=== PATIENT | male | born 1975 | race Caucasian/White ===

== ENCOUNTER 2021-04-26 05:18 | Inpatient (IN) | payer OTHER, SELFPAY ==
[2021-04-26] VITALS (16 sets, daily range): BP systolic 94–155; BP diastolic 47–83; PULSE 77–97; RESP 16–20; TEMP 36.4–37.9; O2SAT 95–97; BMI 27.7
--- NOTE | ~2021-04-26 | CT_ITS ---
EXAMINATION: CT ABDOMEN AND PELVIS WITH CONTRAST CLINICAL INFORMATION: Right lower quadrant pain COMPARISON: CT abdomen pelvis 03/27/2019 and thoracic lumbar spine films 11/25/2019 TECHNIQUE: Multidetector volumetric images were obtained from the superior aspect of the liver through the pubic symphysis following administration 85 mL of Omnipaque 350 intravenous contrast. Sagittal and coronal reformatted images were obtained on the technologist's workstation. Oral contrast: No This CT examination was performed using dose optimization techniques as appropriate, variously including the following: *Automated exposure control *Adjustment of mA and/or kV according to patient size (this includes techniques or standardized protocols for targeted exams where dose is matched to indication/reason for exam; i.e. extremities or head) *Use of iterative reconstruction technique DLP: 678 mGy-cm FINDINGS: LUNG BASES: The visualized lung bases are unremarkable. LIVER, GALLBLADDER, AND BILIARY TREE: The liver is normal in size, shape, and attenuation. A tiny punctate 2 mm-sized hypodensity seen in the right lower liver just below the dome of the hemidiaphragm, most likely a cyst. No worrisome focal hepatic lesion or biliary ductal dilatation is present. The gallbladder is unremarkable with no evidence of radiopaque gallstones, gallbladder wall thickening, or obvious pericholecystic inflammatory changes. PANCREAS: Unremarkable. SPLEEN: Unremarkable. ADRENAL GLANDS: Unremarkable. KIDNEYS AND URETERS: The kidneys are normal in size, shape, and attenuation. No hydronephrosis, hydroureter, or calculi seen. No perinephric stranding. BLADDER: Unremarkable. GASTROINTESTINAL TRACT: The small and large bowel are unremarkable. The appendix is abnormal demonstrating changes of extremely early acute appendicitis. There is an appendicolith in the appendix which is mildly dilated at 1.2 cm. The appendicolith is new since 09/23/2018 study. In addition, some mild inflammatory changes are present around the appendix with some thickening of the lateral conal fascia. Although there is a tiny bubble of air in the distal appendix, indicating that it is not completely obstructed, I suspect that this represents very early appendicitis.. ABDOMINAL WALL: No significant hernia is appreciated. LYMPH NODES: No retroperitoneal lymphadenopathy. VASCULAR: Unremarkable. PELVIC VISCERA: Prostate and seminal vesicles are unremarkable. OSSEOUS STRUCTURES: Degenerative changes present at L3-L4 with marked disc space narrowing and large Schmorl's nodes involving the superior endplate of L4 and the inferior endplate of L3. The rapidity of appearance suggests the possibility of discitis, however no fluid or inflammatory changes present around this. MRI would be useful if there is clinical concern. There is a compression fracture of the superior endplate of T11, stable since the prior study. CT/CT abdomen pelvis w con IMPRESSION: 1. Abnormal appendix with new appendicolith since 2019 and associated mild dilatation of the inflammatory changes. Findings are consistent with very early acute appendicitis. 2. Marked new, since 2020, degenerative changes at L3-L4 as described above with stable compression fracture of T11. With the changes at L3-L4, discitis cannot be excluded although no surrounding fluid is seen. An MRI would be useful if this is clinically suspected. This critical result was discussed with Dr. Mcgill at 8:55 AM on the day of the exam and it was ascertained that the content and urgency of the report was understood at the time of direct communication.
[2021-04-26 07:01] LABS: MANUAL DIFF FLAG NO
[2021-04-26 07:19] LABS: Basophils Percent Auto 0.2 % (0-2); Eosinophils Percent Auto 0.1 % (0-4); Hematocrit 40.9 % (42-52); Imm Gran Abs Auto 0.08 X10*3/uL (0.00-0.03); Imm Gran Pct Auto 0.6 % (0.0-0.4); Lymphocytes Absolute Auto 1.4 X10*3/uL (1.2-4.9); Lymphocytes Percent Auto 9.6 % (20-40); Mean Corpuscular HGB Conc 31.8 g/dl (31.0-36.0); Mean Corpuscular Hemoglobin 26.6 pg (27.0-33.0); Mean Corpuscular Volume 83.8 fL (80-98); Mean Platelet Volume 11.5 fL (9.4-12.4); Monocytes Absolute Auto 0.9 X10*3/uL (0.1-1.2); Monocytes Percent Auto 6.4 % (2-11); Neutrophils Absolute Auto 11.8 X10*3/uL (2.0-8.3); Neutrophils Percent Auto 83.1 % (45-73); Platelet Count 162 X10*3/uL (160-400); Red Blood Count 4.88 X10*6/uL (4.60-5.80); Red Cell Distribution Width 14.9 % (11.0-16.0); White Blood Count 14.2 X10*3/uL (4.8-10.8)
[2021-04-26 07:25] LABS: Potassium 3.9 mmol/L (3.3-5.1); Sodium 140 mmol/L (135-145)
[2021-04-26 07:26] LABS: Alanine Aminotransferase 32 U/L (0-40); Albumin Level 4.5 g/dL (3.5-5.0); Alkaline Phosphatase 82 U/L (39-117); Anion Gap 16 (12-20); Aspartate Amino Transferase 18 U/L (5-37); Bilirubin Direct 0.3 mg/dL (0.0-0.5); Bilirubin Total 0.8 mg/dL (0.0-1.0); Carbon Dioxide 23 mmol/L (22-29); Chloride 105 mmol/L (96-108); Lipase 7 U/L (8-78); Total Protein 7.5 g/dL (6.5-8.0)
[2021-04-26 07:56] LABS: Blood Urea Nitrogen 19 mg/dL (9-16); Estimated Glomerular Filt Rate 58
[2021-04-26] MEDS: iohexoL 350 MG/ML 100 ML INFUS..BTL 85 ML IV (08:17)
[2021-04-26 09:35] LABS: COVID-19 Test Negative (Negative); IDNOW Serial# 9DD0AD1C
--- NOTE | 2021-04-26 10:01 | PC.NURSE ---
unable to find paper chart bp 132/80
--- NOTE | 2021-04-26 10:26 | PM.HPGS ---
History of Present Illness History of Present Illness Date of Service: 04/26/21 <Susanne Benitez MD - Last Filed: 04/26/21 14:00> 04/26/21 <Angely Cantu MD - Last Filed: 04/26/21 11:39> Chief complaint: Acute appendicitis <Susanne Benitez MD - Last Filed: 04/26/21 14:00> Narrative: Ethan Fontneot is a 46 year old male who presented to the emergency department with complaints of acute onset of stabbing, severe right lower quadrant abdominal pain. When I saw him in the emergency department, he was sleeping, but when roused, began retching and screaming in pain. He gives no history of a similar pain in the past and does not report fever or chills. He has been vomiting, but reports that this is related to receiving medication in the emergency room. CT scan of the abdomen and pelvis was done and revealed appendicoliths and evidence of a mildly inflamed appendix consistent with early acute appendicitis. On interview in the emergency department, he reported no history of narcotic or IV drug use. Review of records from the [facility] emergency department indicates that he does have a history of IV drug/opioid use. He does report use of cocaine in the past and says that he has not used in a long period of time. He has been on Eliquis recently. He says that he discontinued it a couple of weeks ago. He does not have a primary care physician and is not able to provide information on who was prescribing the Eliquis or assisting with management. He reports that he had a loss of consciousness and that he awoke with severe swelling. He says that this led to a diagnosis of blood clots and prescription of the Eliquis, but he is not able to provide any information on when this event occurred. <Susanne Benitez MD - Last Filed: 04/26/21 14:00> Review of Systems Review of Systems: He has no complaints other than those documented in the history, but system review is considered unreliable as he is does not appear to be able to provide reliable information at this time <Susanne Benitez MD - Last Filed: 04/26/21 14:00> Yes all other systems are reviewed and are negative <Susanne Benitez MD - Last Filed: 04/26/21 14:00> PMFSH Past Medical History Medical History: Medical History Clavicle fracture DVT (deep venous thrombosis) Forearm fracture Polysubstance abuse <Susanne Benitez MD - Last Filed: 04/26/21 14:00> Social History Social History: Social History Patient Tobacco Use Status: Current everyday Tobacco user Use of substances other than those prescribed or required for medical reasons: Yes Substance Use Frequency: Occasionally Other Past Substance Use Problem:: History of polysubstance use, details unavailable Are you DNR?: No Advance Directives: No Advance Directives Information Provided: No <Susanne Benitez MD - Last Filed: 04/26/21 14:00> Meds Allergies/Adverse reactions: Allergies Allergy/AdvReac Type Severity Reaction Status Date / Time No Known Allergies Allergy Unverified 04/20/20 16:48 [No Known Allergies*] <Susanne Benitez MD - Last Filed: 04/26/21 14:00> Physical Exam Const: Other: Appears to be in pain, unable to fully cooperate with exam <Susanne Benitez MD - Last Filed: 04/26/21 14:00> HENMT: Head: Yes normocephalic and Yes atraumatic <Susanne Benitez MD - Last Filed: 04/26/21 14:00> Neck: Neck: Yes trachea midline and Yes supple <Susanne Benitez MD - Last Filed: 04/26/21 14:00> Chest: Other: Scar over left clavicle, well-healed <Susanne Benitez MD - Last Filed: 04/26/21 14:00> Resp: Effort & Inspection: normal respiratory effort <Susanne Benitez MD - Last Filed: 04/26/21 14:00> Auscultation: clear to auscultation bilaterally <Susanne Benitez MD - Last Filed: 04/26/21 14:00> Cardio: Rate: regular rate <Susanne Benitez MD - Last Filed: 04/26/21 14:00> Rhythm: regular rhythm <Susanne Benitez MD - Last Filed: 04/26/21 14:00> GI: Other: Nondistended, occasional bowel sounds, diffuse involuntary guarding, markedly tender right lower quadrant <Susanne Benitez MD - Last Filed: 04/26/21 14:00> Skin: Other: Normal color, warm and dry <Susanne Benitez MD - Last Filed: 04/26/21 14:00> Extrem: Other: To well-healed incisions left forearm <Susanne Benitez MD - Last Filed: 04/26/21 14:00> Results Results Labs: Short CBC 04/26/21 Range/Units 06:05 WBC 14.2 H (4.8-10.8) X10*3/uL Hgb 13.0 L (14.0-18.0) g/dl Hct 40.9 L (42-52) % Plt Count 162 (160-400) X10*3/uL BMP 04/26/21 06:05 Sodium 140 Potassium 3.9 Chloride 105 Carbon Dioxide 23 BUN 19 H Creatinine 1.33 Liver Function 04/26/21 Range/Units 06:05 Total Bilirubin 0.8 (0.0-1.0) mg/dL Direct Bilirubin 0.3 (0.0-0.5) mg/dL AST 18 (5-37) U/L ALT 32 (0-40) U/L Alkaline Phosphatase 82 (39-117) U/L Albumin 4.5 (3.5-5.0) g/dL <Susanne Benitez MD - Last Filed: 04/26/21 14:00> Abdomen CT scan report/results: report reviewed and image reviewed <Susanne Benitez MD - Last Filed: 04/26/21 14:00> CT scan - pelvis: report reviewed, image reviewed and other (IMPRESSION: 1. Abnormal appendix with new appendicolith since 2019 and associated mild dilatation of the inflammatory changes. Findings are consistent with very early acute appendicitis. 2. Marked new, since 2020, degenerative changes at L3-L4 as described above with stable compression fracture o) <Susanne Benitez MD - Last Filed: 04/26/21 14:00> Assessment and Plan (1) Acute appendicitis: Status: Acute <Susanne Benitez MD - Last Filed: 04/26/21 14:00> 46-year-old male with history, CT findings and exam consistent with acute appendicitis. He has a history of polysubstance abuse according to old record, though he does not give a clear history of this. He does report a recent history of anticoagulation on Eliquis and says that he discontinued this 2 weeks ago. Again, details are unclear. I reviewed the findings with him. Because of the presence of appendicoliths on CT, antibiotic therapy is not recommended because of a higher likelihood of treatment failure. We discussed proceeding with appendectomy, laparoscopic appendectomy with conversion to open if needed. We reviewed the technique of surgery, the likely postoperative course, and risks including but not limited to infection, bleeding, DVT and PE, error in diagnosis and appendiceal stump leak. He wishes to proceed with surgery. This will be performed later today. He is at elevated risk for DVT, but because his recent history of Eliquis use is not clear, will hold on heparin therapy and begin postoperatively. Review of [facility] record indicates a history of right popliteal DVT in February,, noted to have resolved on ultrasound at [facility] dated 06/09/2020. Will use compression boots. <Susanne Benitez MD - Last Filed: 04/26/21 14:00> Quality Stroke Does the patient have a stroke diagnosis?: No <Susanne Benitez MD - Last Filed: 04/26/21 14:00> VTE Prior VTE?: Yes <Susanne Benitez MD - Last Filed: 04/26/21 14:00> VTE Risk Level:: Surgical - moderate <Susanne Benitez MD - Last Filed: 04/26/21 14:00> VTE Device Contraindication: N/A - Device Ordered <Susanne Benitez MD - Last Filed: 04/26/21 14:00> VTE Drug Contraindication: Treatment Not Indicated (has been on eliquis, us shows resolution of DVT) <Susanne Benitez MD - Last Filed: 04/26/21 14:00> Procedures Date of Service Date of Service: 04/26/21 <Susanne Benitez MD - Last Filed: 04/26/21 14:00>
--- NOTE | 2021-04-26 10:28 | PC.NURSE ---
report given to renae at sss
--- NOTE | 2021-04-26 11:06 | PC.NURSE ---
pt left for sss at this time. report given earlier to renae rajan. no med surg assignment at this time. will place pt in dc bed.
--- NOTE | 2021-04-26 11:39 | HO.ANESPROP2 ---
[facility] Active Problems Active Problems: All Active Problems (Updated 04/26/21 @ 11:07 by Treasure Bond) Appendicitis (Acute) Acute appendicitis (Acute) Past Medical History Medical History Clavicle fracture DVT (deep venous thrombosis) Forearm fracture Polysubstance abuse Surgical History History of Problems with Anesthesia: No Social History Social History Patient Tobacco Use Status: Current everyday Tobacco user Use of substances other than those prescribed or required for medical reasons: Yes Substance Use Frequency: Occasionally Other Past Substance Use Problem:: History of polysubstance use, details unavailable Are you DNR?: No Advance Directives: No Advance Directives Information Provided: No Meds Allergies Allergy/AdvReac Type Severity Reaction Status Date / Time No Known Allergies Allergy Unverified 04/20/20 16:48 [No Known Allergies*] Active Medications: Current Medications Hydromorphone HCl (Hydromorphone Hcl 0.5 Mg/0.5 Ml Syringe) 0.5 mg IV Q3H PRN; Protocol PRN Reason: Pain, Severe (Pain Scale 7-10) Cefotetan Disodium 2 gm/ (Sodium Chloride) 50 mls @ 100 mls/hr IV PREOP ONE Stop: 04/26/21 11:42 Lactated Ringer's (Lr) 1,000 mls @ 80 mls/hr IVCONT .[id number] SUZIE Ondansetron HCl (Ondansetron Hcl 4 Mg/2 Ml Vial) 4 mg IVPUSH Q8H PRN PRN Reason: Nausea Exam Exam Date and Time: April 26, 2021 1139 Height,Weight and Vital Signs: Height 6 ft 1 in Weight 95.254 kg Last Vital Signs Temp 100.3 F 04/26/21 11:15 Pulse 77 04/26/21 11:15 Resp 20 04/26/21 11:15 BP 150/83 H 04/26/21 11:15 Pulse Ox 97 04/26/21 11:15 Pertinent Lab Results Pertinent Lab Results: Laboratory Tests 04/26/21 04/26/21 04/26/21 06:05 06:05 09:09 WBC 14.2 H RBC 4.88 Hgb 13.0 L Hct 40.9 L MCV 83.8 MCH 26.6 L MCHC 31.8 RDW 14.9 Plt Count 162 MPV 11.5 Immature Gran % (Auto) 0.6 H Neut % (Auto) 83.1 H Lymph % (Auto) 9.6 L [place] % (Auto) 6.4 Eos % (Auto) 0.1 Baso % (Auto) 0.2 Lymph # (Auto) 1.4 [place] # (Auto) 0.9 Eos # (Auto) 0.0 Baso # (Auto) 0.0 Abs Immat Gran (auto) 0.08 H Absolute Neuts (auto) 11.8 H Absolute Nucleated RBC 0.000 Nucleated RBC % (auto) 0.0 Sodium 140 Potassium 3.9 Chloride 105 Carbon Dioxide 23 Anion Gap 16 BUN 19 H Creatinine 1.33 Estim Creat Clear Calc TNP Estimated GFR 58 Total Bilirubin 0.8 Direct Bilirubin 0.3 AST 18 ALT 32 Alkaline Phosphatase 82 Total Protein 7.5 Albumin 4.5 Lipase 7 L COVID-19 (REINA) Negative COVID-19 Clin Com See Note Airway Mallampati Class: II TM Dist: >3cm Neck ROM: Full Loose/Missing/Broken Teeth: No Heart: RRR Lungs: CTA Assessment and Plan Assessment Anesthesia Assessment: Anesthesia Plan Discussed and Chart Reviewed Final Anesthetic Review History of Problems with Anesthesia: No NPO: Yes ASA Class: II Final Preanesthetic Review: Meds/Allgs Chart Reviewed, Consent Obtained/Reviewed and Anes Risks/Benef Reviewed Patient Risk: Low Procedure Risk: Low Anesthetic Plan Anesthetic Plan: GA Disposition: Standard PACU
--- NOTE | 2021-04-26 13:27 | PM.OP ---
Brief Operative Note Date of Service: 04/26/21 <Lola King PA-C - Last Filed: 04/26/21 13:28> Pre-op diagnosis: acute appendicitis <Lola King PA-C - Last Filed: 04/26/21 13:28> Post-op diagnosis: same <Lola King PA-C - Last Filed: 04/26/21 13:28> Procedure: laparoscopic appendectomy <Lola King PA-C - Last Filed: 04/26/21 13:28> Surgeon: SUSANNE MURPHY MD <Lola King PA-C - Last Filed: 04/26/21 13:28> Anesthesia: GETA <Lola King PA-C - Last Filed: 04/26/21 13:28> Was an Compressor Station Engineer Chief used for this Procedure?: Yes <Lola King PA-C - Last Filed: 04/26/21 13:28> No <Susanne Murphy MD - Last Filed: 04/26/21 14:10> Compressor Station Engineer Chief: Lola King <Lola King PA-C - Last Filed: 04/26/21 13:28> Estimated blood loss (mL): 5 <Lola King PA-C - Last Filed: 04/26/21 13:28> Urine output (mL): 300 <Lola King PA-C - Last Filed: 04/26/21 13:28> Pathology: other (APPENDIX) <KERRIE Colon Last Filed: 04/26/21 13:28> Condition: stable <Lola King PA-C - Last Filed: 04/26/21 13:28> Disposition: PACU <KERRIE Colon Last Filed: 04/26/21 13:28>
--- NOTE | 2021-04-26 14:12 | W.PM.OPN ---
Operative Note Operative Note Date of Service: 04/26/21 Narrative: Preoperative diagnosis: Acute appendicitis Postoperative diagnosis: Same Procedure: Laparoscopic appendectomy Cobol Application Developer: Lola King PA-C Anesthesia: General endotracheal Specimen: Appendix Immediate complications: None Indications: This is a 46-year-old gentleman who presented to the emergency department with a several hour history of severe stabbing right lower quadrant abdominal pain. Examination revealed localized right lower quadrant tenderness and a CT scan of the abdomen and pelvis demonstrated appendicoliths and mild periappendiceal inflammation consistent with early acute appendicitis. Findings: There was a small amount of turbid fluid present in the right pericolic gutter. The appendix appeared mildly inflamed. There is no evidence of perforation or abscess. Procedure in detail: With the patient in the supine position following induction of adequate general anesthesia, the abdomen is prepped with ChloraPrep and was draped sterilely. A time-out procedure was performed. 2 g of cefotetan were infused for antibiotic prophylaxis. Each trocar site was infiltrated with local anesthetic prior to making incisions. An infraumbilical incision was made and was carried down to the level of the fascia. The fascia was elevated in the midline with a Dejuan clamp and holding sutures of 0 Polysorb were placed on either side. The Dejuan was released and the fascia was split in the midline. The peritoneum was elevated and incised. The Sheth trocar was inserted and stabilized with the fascial sutures. The abdomen was then insufflated with carbon dioxide to a pressure 15 mm of mercury. The 0 degree, 5 mm laparoscope was inserted and the peritoneal cavity was visualized. The distal appendix was visible in the right lower quadrant. It appeared mildly inflamed. There was a small amount of turbid fluid present in the right paracolic gutter. A 5 mm trocar was placed laterally in the superior aspect of the left lower quadrant and a 2nd 5 mm trocar was placed in the lower midline a few cm above the pubic bone. The patient was positioned slightly left side down and in Trendelenburg. A blunt grasper was inserted through the suprapubic port and the appendix was grasped and elevated. A 2nd blunt grasper was inserted through the left lower quadrant port and the appendix was gently manipulated. The mesoappendix was visualized. The left lower quadrant grasper was then removed and the 5 mm laparoscopic LigaSure was inserted. The mesoappendix was then divided using the LigaSure or and down to the base of the appendix. The appearance of the appendix was normal at the junction with cecum. The LigaSure was removed. The laparoscoped was removed and repositioned through the left lower quadrant trocar and the Endo MACK 30, purple cartridge, was employed. It was inserted through the Sheth trocar, angled, opened and placed across the base of the appendix at the junction with the cecum. The device was closed. The jaws were examined to ensure that no extraneous tissues were included. The device was then fired, opened and removed. The specimen pouch was inserted through the Varun trocar. The appendix was placed into the pouch. The pouch was then closed and withdrawn along with the Varun trocar. The Varun was then reinserted in the laparoscopic was placed back through it. The appendectomy site was inspected. Staple line was intact. There was no evidence of bleeding. The right lower quadrant was irrigated with saline solution. 5 mm trocars were then removed under direct vision. There is no evidence of bleeding. Insufflation was discontinued and gas was allowed to escape from the peritoneal cavity. The laparoscopic Sheth were removed. Fascia at the Varun site was closed with a [id number] suture of 0 Polysorb and the holding sutures were tied to 1 another. Skin incisions were closed with subcuticular sutures of 4-0 Polysorb. Steri-Strips and dry sterile dressings were applied. He tolerated the procedure well and was transported to the recovery room in stable condition. There were no immediate complications.
[2021-04-26] MEDS: HYDROmorphone HCl 0.5 MG/0.5 ML SYRINGE IV ×3 (18:17→23:26)
[2021-04-26] MEDS: Lactated Ringers 1,000 ML 80 ML IVCONT (18:17)
[2021-04-26] MEDS: oxyCODONE HCl Immed Release 5 MG TABLET 10 MG PO (19:26)
[2021-04-27] VITALS: BP 131/64; PULSE 83; RESP 17; TEMP 36.8; O2SAT 95
[2021-04-27] MEDS: HYDROmorphone HCl 0.5 MG/0.5 ML SYRINGE IV ×2 (02:21→05:16)
[2021-04-27 04:00] VITALS: BP 107/68; PULSE 74; RESP 17; TEMP 37.2; O2SAT 97
[2021-04-27] MEDS: Lactated Ringers 1,000 ML 80 ML IVCONT (05:11)
[2021-04-27 08:00] VITALS: BP 138/70; PULSE 81; RESP 20; TEMP 36.4; O2SAT 95
[2021-04-27] MEDS: oxyCODONE HCl Immed Release 5 MG TABLET 10 MG PO (08:00)
--- NOTE | 2021-04-27 09:21 | P.PNGS_ITS ---
Subjective Subjective Date of Service: 04/27/21 <Lola King PA-C - Last Filed: 04/27/21 09:25> 04/27/21 <Terrell Green MD - Last Filed: 04/27/21 11:09> Interval history: Feels much better but is sore at incision sites. Medication relieving pain but wears off quickly- has been receiving the IV analgesics. Tolerating solid diet, OOB without difficulty. <Lola King PA-C - Last Filed: 04/27/21 09:25> Physical Exam Vital Signs: Vital Signs: Last Vital Signs Temp 97.6 F 04/27/21 08:00 Pulse 81 04/27/21 08:00 Resp 20 04/27/21 08:00 BP 138/70 04/27/21 08:00 Pulse Ox 95 04/27/21 08:00 Body Mass Index 27.7 <Lola King PA-C - Last Filed: 04/27/21 09:25> Const: General: comfortable, no acute distress and alert <Lola King PA-C - Last Filed: 04/27/21 09:25> Orientation/consciousness: patient oriented x3 <KERRIE Colon Last Filed: 04/27/21 09:25> Resp: Effort & Inspection: normal respiratory effort <KERRIE Colon Last Filed: 04/27/21 09:25> GI: Inspection: No distended and Yes incision (dressings c/d/i) <Lola King PA-C - Last Filed: 04/27/21 09:25> Palpation (GI): Soft to palpation, Tenderness to palpation present (GI) (mild, incisional), no guarding and not rigid <KERRIE Colon Last Filed: 04/27/21 09:25> Percussion: Yes normal to percussion <KERRIE Colon Last Filed: 04/27/21 09:25> Skin: General skin exam: no rashes or lesions noted <KERRIE Colon Last Filed: 04/27/21 09:25> Neuro: General: patient oriented x3 <Lola King PA-C - Last Filed: 04/27/21 09:25> Extrem: General: Yes no clubbing, cyanosis or edema <Lola King PA-C - Last Filed: 04/27/21 09:25> Procedures Date of Service Date of Service: 04/27/21 <Lola King PA-C - Last Filed: 04/27/21 09:25> Progress Note: A&P Assessment and plan (1) Acute appendicitis: Status: Acute <Lola King PA-C - Last Filed: 04/27/21 09:25> (2) Status post laparoscopic appendectomy: Status: Acute <Lola King PA-C - Last Filed: 04/27/21 09:25> Assessment and Plan: Postop pain seems appropriate Looks well although anxious Abdomen soft Tolerating diet He says he wants to go home and is ready Okay to discharge home Given discharge instructions Follow-up in the office Seen and examined -agree with RAMYA King <Terrell Green MD - Last Filed: 04/27/21 11:09> Assessment and Plan: 46 year old male admitted with acute appendicitis now POD #1 s/p lap appy. He is doing well post op. He reports incisional pain but relieved by medication. VSS. Abd exam benign with appropriate post op tenderness, dressings c/d/i. Patient hesitant about discharge today due to pain. Educated patient that PO analgesics last longer and we will try these today in preparation. Will reassess later today for discharge to home. <Lola King PA-C - Last Filed: 04/05 11/22 09:25> Fall Risk Details Current Medications: Current Medications Hydromorphone HCl (Hydromorphone Hcl 0.5 Mg/0.5 Ml Syringe) 0.5 mg IV Q3H PRN; Protocol PRN Reason: Pain, Severe (Pain Scale 7-10) Last Admin: 04/27/21 05:16 Dose: 0.5 mg Documented by: Lactated Ringer's (Lr) 1,000 mls @ 80 mls/hr IVCONT .[id number] SUZIE Last Admin: 04/27/21 05:11 Dose: 80 mls/hr Documented by: Ondansetron HCl (Ondansetron Hcl 4 Mg/2 Ml Vial) 4 mg IVPUSH Q8H PRN PRN Reason: Nausea Oxycodone HCl (Oxycodone Hcl Immed Release 5 Mg Tablet) 5 mg PO Q4H PRN PRN Reason: Pain, Moderate (Pain Scale 4-6 Oxycodone HCl (Oxycodone Hcl Immed Release 5 Mg Tablet) 10 mg PO Q4H PRN PRN Reason: Pain, Severe (Pain Scale 7-10) Last Admin: 04/27/21 08:00 Dose: 10 mg Documented by: <Lola King PA-C - Last Filed: 04/27/21 09:25> Time Spent With Patient Time: Total time spent is greater than 50% in coordination of care (as documented) at patient's floor/unit and/or counseling patient: <Lola King PA-C - Last Filed: 04/27/21 09:25> Time with patient: 15 - 24 minutes <Lola King PA-C - Last Filed: 04/27/21 09:25> Quality Stroke Does the patient have a stroke diagnosis?: No <Lola King PA-C - Last Filed: 04/27/21 09:25> VTE Prior VTE?: Yes <Lola King PA-C - Last Filed: 04/27/21 09:25> VTE Risk Level:: Surgical - moderate <Lola King PA-C - Last Filed: 04/27/21 09:25> VTE Device Contraindication: N/A - Device Ordered <Lola King PA-C - Last Filed: 04/27/21 09:25> VTE Drug Contraindication: Treatment Not Indicated (has been on eliquis, us shows resolution of DVT) <Lola King PA-C - Last Filed: 04/27/21 09:25>
--- NOTE | 2021-04-27 10:47 | HO.POSTANES ---
Post Anesthesia Evaluation Post Anesthesia Evaluation Vital Signs: Vital Signs Temp Pulse Resp BP Pulse Ox 04/27/21 08:00 97.6 F 81 20 138/70 95 04/27/21 04:00 99 F 74 17 107/68 97 04/27/21 00:00 98.3 F 83 17 131/64 95 Anesthesia: General Endotracheal-GETA Mental Status: Awake Pain Control: Satisfactory Nausea/Vomiting: None Hydration: Adequate Anesthesia-Related Issues: No Anes. Related Issues
--- NOTE | 2021-04-27 10:52 | P.DS_ITS ---
DS: Providers Provider Date of Service: 04/27/21 Date of admission: 04/26/21 11:00 Primary care physician: Chanell Physician Attending physician on admission: Susanne Benitez Attending physician on discharge: Terrell Green DS: Diagnosis Discharge Diagnosis (1) Acute appendicitis: Status: Acute (2) Status post laparoscopic appendectomy: Status: Acute DS: Summary Hospital Course Hospital Course: BRIEF HPI: Ethan Fontenot is a 46 year old male who presented to the emergency department with complaints of acute onset of stabbing, severe right lower quadrant abdominal pain.? When I saw him in the emergency department, he was sleeping, but when roused, began retching and screaming in pain.? He gives no history of a similar pain in the past and does not report fever or chills.? He has been vomiting, but reports that this is related to receiving medication in the emergency room.? CT scan of the abdomen and pelvis was done and revealed appendicoliths and evidence of a mildly inflamed appendix consistent with early acute appendicitis. On interview in the emergency department, he reported no history of narcotic or IV drug use.? Review of records from the [facility] emergency department indicates that he does have a history of IV drug/opioid use.? He does report use of cocaine in the past and says that he has not used in a long period of time. He has been on Eliquis recently.? He says that he discontinued it a couple of weeks ago.? He does not have a primary care physician and is not able to provide information on who was prescribing the Eliquis or assisting with management.? He reports that he had a loss of consciousness and that he awoke with severe swelling.? He says that this led to a diagnosis of blood clots and prescription of the Eliquis, but he is not able to provide any information on when this event occurred. HOSPITAL COURSE: The patient was admitted to the surgical service for further treatment of the acute appendicitis. He was kept NPO, on IVF and on IV zosyn. Given the presence of the appendicolith, it was recommended to proceed with laparoscopic appendectomy, possible open. He agreed and he was added onto the OR schedule for that day. On 04/26/21, a laparoscopic appendectomy was performed by Dr. Benitez without complication. The patient tolerated the procedure well, completed routine recovery in PACU and was admitted to the medical/surgical floor for observation. He had an uncomplicated post operative course. He was tolerating a solid diet, his pain was controlled, he was OOB without difficulty. His abdomen remained benign with appropriate postop tenderness and dressings c/d/i. He moved his bowels. He felt ready for discharge. He was discharged to home on 04/27/21 in stable condition with 2 week follow up in office with Dr. Green who was covering. Status at Discharge Functional status at discharge: independent ambulation Overall status at discharge: patient is progressing back to baseline Time Spent with Patient Time attestation: Total time spent providing and/or coordinating discharge services: Discharge coordination time: Less than 30 minutes Quality: Stroke Does the patient have a stroke diagnosis?: No Physical Exam Vital Signs: Vital Signs: Last Vital Signs Temp 97.6 F 04/27/21 08:00 Pulse 81 04/27/21 08:00 Resp 20 04/27/21 08:00 BP 138/70 04/27/21 08:00 Pulse Ox 95 04/27/21 08:00 Body Mass Index 27.7 Const: General: comfortable, no acute distress and alert Orientation/consciousness: patient oriented x3 Resp: Effort & Inspection: normal respiratory effort GI: Inspection: No distended and Yes incision (dressings c/d/i) Palpation (GI): Soft to palpation, Tenderness to palpation present (GI) (mild, incisi onal), no guarding and not rigid Percussion: Yes normal to percussion Skin: General skin exam: no rashes or lesions noted Neuro: General: patient oriented x3 Extrem: General: Yes no clubbing, cyanosis or edema DS: Data Data Completed and Pending Pending studies at discharge: Pending at discharge 04/26/21 12:57 Surgical [PTH] Routine Discharge Plan Discharge Patient Disposition: Home, Self-Care Discharge Diagnosis: acute appendicitis Referrals: Terrell Green MD [Physician] - 2 Weeks Physician,None [Primary Care Provider] - 1 Week Discharge Medications: New oxycodone 5 mg tablet 5 mg PO Q4H PRN (Reason: pain (scale score 7-10)) Qty: 24 RF: 0 Discharge Orders: Discharge Order (Routine); Ordered 04/27/21 Ordered By: Lola King Diet: advance to usual diet Activity on Discharge: No heavy lifting Stand Alone Forms: Patient Portal Discharge page Activity Restrictions/Additional Instructions: If the incision area is tender, you may apply an ice pack for short intervals (No more than 20 minutes on, followed by at least 20 minutes off). Do not apply heat. Do not use creams, lotions, or topical antibiotics unless instructed to do so by your surgeon. These can cause infection or allergic reaction. Remove bandaids in 2 days. Ok to shower. You have steri strips (small white cloth strips) covering your incision- these will fall off ~1 week. Follow up in office with Dr. Green in 2 weeks. ([phone]) Call Your Doctor If: -Your temperature exceeds 101.5? F -You experience excessive pain or swelling -You have an unexpected reaction to medication -You have excessive bleeding -You experience continued vomiting/nausea -Your incision begins to separate -Your incision shows signs of infection such as increased redness, swelling, excessive pain, drainage (light blood or clear fluid is normal) or heat Care Plan Goals: Return to baseline health and gradual return to activity following recovery period. Health Concerns: acute appendicitis Plan of Treatment: Discharge to home, f/u in office in 2 weeks Assessment: Doing well post op
--- NOTE | 2021-04-27 12:35 | MHC.CM.PN ---
PT DISCHARGED PRIOR TO BEING SEEN BY CM. PER EMR, PT LIVES AT HOME WITH HIS S/O AND CHILDREN AND IS FULLY INDEPENDENT. NO HCP ON FILE PT ARRANGED HIS OWN TRANSPORT AND DC'D HOME WITH NO SERVICES
== END 2021-04-27 11:45 | disposition home or self-care (01) | DRG 234 ==
LOC: HO.ED 14:44 → HO.EDOVER 14:47 → HO.S3 15:58
PROVIDERS: Emergency Medicine; Admitting Provider Surgery; Emergency Provider Surgery; Visit Provider Surgery
PROC: 0DTJ4ZZ Resection of Appendix, Percutaneous Endoscopic Approach (ICD-10-PCS; CPT 44970; principal; 2021-04-26 12:00)
DX: K35.80 Unspecified acute appendicitis (principal); F17.210 Nicotine dependence, cigarettes, uncomplicated; Z71.6 Tobacco abuse counseling; Z20.822 Contact with and (suspected) exposure to COVID-19
CPT/HCPCS: 44970; 36415; 74177; 80051; 80076; 82565; 83690; 84520; 85025; 87635; 88304; J0131; J1100; J1170; J1885; J2250; J2405; J3010; Q9967

== ENCOUNTER → 2021-04-26 11:00 | Outpatient (BNV) | payer OTHER, SELFPAY | PROVIDERS: Admitting Provider Surgery; Emergency Provider Surgery; Visit Provider Surgery | DX: K35.80 Unspecified acute appendicitis (principal) ==

== ENCOUNTER 2021-10-16 14:27 | Inpatient (IN) | payer OTHER, SELFPAY ==
--- NOTE | ~2021-10-16 | FL_ITS ---
EXAMINATION: XR FL WITH IMAGES CLINICAL INFORMATION: ORIF left clavicle. COMPARISON: Clavicular films 10/16/2021. TECHNIQUE: Fluoroscopy Performed by Dr. Davon Lin. Fluoroscopy Time: 0.2 minutes. DAP: 0.0529 mGycm2. Images: 2. FINDINGS: A plate and screw device is seen overlying the fracture of the left clavicle. FL/FL guidance in OR IMPRESSION: Fluoroscopy and spot films provided to Dr. Davon Lin. Please see his operative note for full details.
--- NOTE | ~2021-10-16 | XR_ITS ---
EXAMINATION: XR CLAVICLE, LEFT CLINICAL INFORMATION: Fall COMPARISON: Previous x-ray March 2019 TECHNIQUE: 2 of the left clavicle. FINDINGS: There is an old mid clavicle fracture and orthopedic hardware with 2 plates and multiple screws. There is an acute displaced fracture of the distal clavicle, distal to the orthopedic hardware. This may involve the most distal/most lateral screw. There is superior displacement of the mid clavicle with respect to the distal clavicle by greater than the width of the clavicle. There are old left rib fractures. No other acute fracture is seen. Joint spaces are normal. There is soft tissue swelling adjacent to the fracture. XR/XR clavicle LT IMPRESSION: Displaced acute left distal clavicle fracture.
--- NOTE | 2021-10-16 16:00 | ED_ITS ---
HPI - General Adult General Chief complaint: Extremity Injury, Upper Stated complaint: popped shoulder Time Seen by Provider: 10/16/21 15:50 Source: patient Mode of arrival: ambulatory Limitations: no limitations History of Present Illness HPI narrative: Patient is a 46 year old male presenting to the emergency department today with left clavicle pain. Patient states that he had his left clavicle repaired 2 years ago at [facility] with hardware. Patient states that today, he was playing basketball with new shoes when his shoes got caught and he tumbled forward, rolling onto his left clavicle. Patient states that he did not hit his head and he did not experience any loss of consciousness with the incident. Patient describes the pain as 10/10 and non-radiating with a sharp nature. Patient denies any numbness, tingling, dizziness, lightheadedness, abdominal pain, nausea, vomiting, fever, chills, blurry vision, double vision, loss of vision, chest pain, difficulty breathing, shortness of breath, back pain, night sweats, pain with urination, increased urinary frequency, increased urinary urgency, blood in his urine or stool, syncope or a near syncopal episode, bowel incontinence, bladder incontinence, bowel retention, bladder retention, or any other complaints at this time. Patient states that he does not have any medical history and does not take any daily medications. MD complaint: left clavicle pain Onset (ago): minute(s) Location: upper extremity Radiation: non-radiation Severity: severe Severity scale (1-10): 10 Quality: sharp Pain Consistency: constant Relieving factors: none Exacerbating factors: movement Associated symptoms: denies other symptoms Treatments prior to arrival: none Related Data Home Medications Medication Instructions Recorded Confirmed clonidine HCl 0.1 mg tablet 1 tab PO BEDTIME 10/16/21 10/16/21 ibuprofen 400 mg tablet 1 tab PO TID PRN 10/16/21 10/16/21 sertraline 50 mg tablet 1 tab PO DAILY 10/16/21 10/16/21 trazodone 100 mg tablet 150 mg PO BEDTIME 10/16/21 10/16/21 Allergies Allergy/AdvReac Type Severity Reaction Status Date / Time No Known Allergies Allergy Unverified 04/20/20 16:48 [No Known Allergies*] Review of Systems Constitutional: Constitutional: Reports no additional constitutional complaints, Denies chills, Denies fever(s) and Denies night sweats Eyes: Eyes: Reports no additional eye complaints, Denies blurry vision, Denies change in vision, Denies diplopia, Denies eye discharge, Denies loss of vision and Denies eye pain ENT: Denies dizziness Cardiovascular: Cardiovascular: Reports no additional cardiovascular complaints, Denies chest pain, Denies lightheadedness, Denies Loss of Co nsciousness and Denies dyspnea Respiratory: Respiratory: Reports no additional respiratory complaints and Denies dyspnea Gastrointestinal: Gastrointestinal: Reports no additional gastrointestinal complaints, Denies abdominal pain, Denies melena, Denies hematochezia, Denies change in bowel habits and Denies change in stool character Genitourinary: Genitourinary: Reports no additional male genitourinary complaints, Denies hematuria, Denies oliguria, Denies difficulty urinating, Denies dysuria, Denies urinary frequency, Denies urinary hesitancy, Denies urinary incontinence and Denies urinary urgency Musculoskeletal: Musculoskeletal: Reports no additional musculoskeletal complaints, Denies numbness and Denies tingling Comments: left clavicle pain Neurologic: Denies dizziness, Denies loss of vision, Denies numbness and Denies tingling Psychiatric: Psychiatric: Reports no additional psychiatric complaints Endocrine: Endocrine: Reports no additional endocrine complaints Hematologic/Lymphatic: Hematologic/Lymphatic: Reports no additional hematologic/lymphatic complaints Allergic/Immunologic: Allergic/Immunologic: Reports no additional allergic/immunologic complaints [facility] Past Medical History Attestation statement: The following information was validated with the patient. Source: old records reviewed Medical History Clavicle fracture DVT (deep venous thrombosis) Forearm fracture Polysubstance abuse Social History Social History Household Members: Significant Other and Children Housing: Condominium Do you presently have visiting nurse or other home services: No Patient Tobacco Use Status: Current everyday Tobacco user Tobacco use type: Cigarette Second Hand Smoke Exposure: Yes Advance Directives: No Advance Directives Information Provided: No service: No Current occupational status: unemployed Physical Exam ED Vital Signs: Vital Signs - 24 hr 10/16/21 16:03 Temperature 97.7 F Pulse Rate 102 H Respiratory Rate 96 H Blood Pressure 122/89 BMI result Body Mass Index 29.5 Const General: cooperative, no acute distress, alert and awake Nutritional Appearance: well nourished Orientation/consciousness: patient oriented x3 Limitations: no limitations HENMT Head: Yes normal to inspection and Yes atraumatic Ears: hearing grossly normal bilaterally and external ears normal General nose exam: Normal external nose present, no nasal discharge noted and no epistaxis Face and sinus: Yes normal facial exam, No abrasion and No laceration Mouth: Normal oral and palatal mucosa present, no drooling and no muffled voice Eyes General: appearance normal, both eyes and all related structures Periorbital: periorbital findings normal Eyelids: Yes eyelids normal Conjunctivae: conjunctivae normal Pupils: Equal, round and reactive pupils present EOM: EOMs intact bilaterally Neck Neck: Yes normal visual inspection, Yes full ROM and Yes no lymphadenopathy Chest Chest palpation & inspection: normal inspection of the chest Resp Effort & Inspection: normal respiratory effort and able to speak in complete sentences Auscultation: clear to auscultation bilaterally Cardio Rate: regular rate Rhythm: regular rhythm GI Inspection: Yes normal to inspection Palpation (GI): Soft to palpation, not firm, nontender and no guarding Neuro General: patient oriented x3 and moves all extremities Cranial nerves: Yes Equal, round and reactive pupils present Cognition (Neuro): normal cognition Motor exam (neuro): 5/5 motor strength present throughout Sensory Exam: Normal double simultaneous stimulation for sensation Coordination: [id number] test normal Extrem General: Yes normal to inspection and Yes capillary refill normal Left upper extremity: normal capillary refill and shoulder/upper arm Details: tenderness Location: of the clavicle Laterality: medially, mid-shaft and laterally and abnormal ROM Details: pain with passive ROM Details: in ADduction, in ABduction, in extension, in flexion, in internal rotation and external rotation-; No no cyanosis and no edema Psych Appearance: grossly normal Mental Status: mental status grossly normal Affect: normal affect Attitude: cooperative Thought process: Normal thought process present Thought content: Normal thought content present Insight: Good insight present (Psych) Course Consultations Consultation #1: Spoke to the orthopedic PA Yuli Sung who stated that Dr. Lin agrees to admission and they will repair the patient's injury tomorrow. He is to remain NPO after midnight tonight. Time: 16:25 Medical Decision Making MDM Narrative Medical decision making narrative: Patient is a 46 year old male presenting to the emergency department today with left clavicle pain. Patient's physical exam showed significant tenderness to palpation of the entire left clavicle as well as pain with all aspects of ROM to the left shoulder. Patient's PMS was intact to the left upper extremity. Patient's blood work was unremarkable. Patient's left shoulder x-ray showed a displaced acute left distal clavicle fracture. I explained my physical exam findings as well as all test results to the patient. I answered all questions asked by the patient. Patient received IV Dilaudid which he stated helped his pain significantly. I spoke to Yuli Sung the orthopedic PA who informed me that Dr. Lin accepts this patient for admission with planned surgery tomorrow morning. States that the patient should be NPO after midnight. Patient verbalized agreement and understanding with this treatment plan and admission. Differential Diagnosis Differential Diagnosis: clavicle fracture, shoulder dislocation Medical Records Medical records reviewed: Yes I reviewed the patient's medical records. Lab Data Lab results reviewed: Yes I reviewed the patient's lab results. Result diagrams: 10/16/21 17:35 10/16/21 17:35 Imaging Data Left shoulder x-ray: Attestation: I personally reviewed and interpreted this imaging study as follows: My impression: Acute clavicle fracture. Radiologist's impression: EXAMINATION: XR CLAVICLE, LEFT CLINICAL INFORMATION: Fall? COMPARISON: Previous x-ray March 2019? TECHNIQUE: 2 of the left clavicle. FINDINGS: There is an old mid clavicle fracture and orthopedic hardware with 2 plates and multiple screws.? There is an acute displaced fracture of the distal clavicle, distal to the orthopedic hardware. This may involve the most distal/most lateral screw. There is superior displacement of the mid clavicle with respect to the distal clavicle by greater than the width of the clavicle. There are old left rib fractures. No other acute fracture is seen. Joint spaces are normal. There is soft tissue swelling adjacent to the fracture.? XR/XR clavicle LT IMPRESSION: Displaced acute left distal clavicle fracture. Dictated By: Angely Boston MD Signed By: Electronically signed by Angely Boston MD 10/16/21 1687 Discharge Plan Discharge Clinical Impression: Clavicle fracture, Orthopedic hardware present Patient Disposition: Admitted As Inpatient
[2021-10-16 16:03] VITALS: BP 122/89; PULSE 102; RESP 96; TEMP 36.5; BMI 29.5
--- NOTE | 2021-10-16 16:52 | PHA.MEDREC ---
Pharmacy Consult ? Medication Reconciliation Pharmacy has completed the medication reconciliation. Verified clonidine dose with pt, states that he takes 1 tab at bedtime not bid
[2021-10-16] MEDS: HYDROmorphone HCl 2 MG/ML VIAL IVPUSH (16:57)
[2021-10-16 17:27] VITALS: PULSE 95; O2SAT 93
[2021-10-16] MEDS: Dextrose 5 % and 0.45 % NaCl 1,000 ML 80 ML IVCONT (17:28)
--- NOTE | 2021-10-16 17:30 | PC.NURSE ---
sling placed for comfort to L arm. pt aware of plan to be admit to the hospital with plan of surgery for tomorrow.
[2021-10-16 17:41] LABS: MANUAL DIFF FLAG NO
[2021-10-16 17:48] LABS: Basophils Percent Auto 0.3 % (0-2); Eosinophils Absolute Auto 0.1 X10*3/uL (0.0-0.4); Eosinophils Percent Auto 0.5 % (0-4); Hematocrit 44.1 % (42.0-52.0); Hemoglobin 13.9 g/dl (14.0-18.0); Imm Gran Abs Auto 0.07 X10*3/uL (0.00-0.03); Imm Gran Pct Auto 0.5 % (0.0-0.4); Lymphocytes Absolute Auto 2.5 X10*3/uL (1.2-4.9); Lymphocytes Percent Auto 19.3 % (20-40); Mean Corpuscular HGB Conc 31.5 g/dl (31.0-36.0); Mean Corpuscular Hemoglobin 26.9 pg (27.0-33.0); Mean Corpuscular Volume 85.3 fL (80.0-98.0); Mean Platelet Volume 11.1 fL (9.4-12.4); Monocytes Absolute Auto 0.8 X10*3/uL (0.1-1.2); Monocytes Percent Auto 6.4 % (2-11); Neutrophils Absolute Auto 9.4 x10*3/uL (2.0-8.3); Platelet Count 197 X10*3/uL (160-400); Red Blood Count 5.17 X10*6/uL (4.60-5.80); Red Cell Distribution Width 15.8 % (11.0-16.0); White Blood Count 12.9 X10*3/uL (4.8-10.8)
[2021-10-16 17:50] LABS: Prothrombin Time 11.1 SEC (9.9-13.0)
[2021-10-16 17:52] LABS: Partial Thromboplastin Time 29.3 SEC (24.1-38.0)
[2021-10-16 17:58] LABS: Alanine Aminotransferase 54 U/L (0-40); Albumin Level 4.5 g/dL (3.5-5.0); Alkaline Phosphatase 80 U/L (39-117); Anion Gap 14 (12-20); Aspartate Amino Transferase 28 U/L (5-37); Bilirubin Total 0.3 mg/dL (0.0-1.0); Blood Urea Nitrogen 28 mg/dL (9-16); Calcium 9.5 mg/dL (8.4-10.2); Carbon Dioxide 22 mmol/L (22-29); Chloride 107 mmol/L (96-108); Creatinine Clr Calc Pharmacy 95.8; Estimated Glomerular Filt Rate > 60; Glucose Fasting 98 mg/dL (60-99); Potassium 4.4 mmol/L (3.3-5.1); Sodium 139 mmol/L (135-145); Total Protein 7.7 g/dL (6.5-8.0)
--- NOTE | 2021-10-16 18:00 | MHC.CM.PN ---
Addendum entered by Rebecca Wolfe 10/16/21 18:21: Pt did not receive any Covid 19 vaccines. Original Note: CM met with admitted patient with bed assignment pending. No IMM necessary. A&O x3. No HCP on file. HCP reviewed, completed and signed. Copies given and uploaded into [facility] iiko. HCP/mother Lucina Fontenot ([phone]). Has first visit with PCP on 10/22/2021 with [facility]. Pt does not remember provider name. Pt lives with mother, is unemployed, uses no DME or services. Pt has new PCP first appointment on 10/22/2021 with [facility], cannot remember the providers name. D/C plan is home without services. Pt may need post surgical OutPatient PT. Pt will arrange transportation home. CM to follow for D/C needs.
[2021-10-16 18:55] LABS: COVID-19 Test Negative (Negative)
[2021-10-16] MEDS: oxyCODONE HCl Immed Release 5 MG TABLET PO ×2 (19:08→20:05)
[2021-10-16 20:18] VITALS: BP 119/79; PULSE 100; RESP 16; TEMP 36.6; O2SAT 95
--- NOTE | 2021-10-16 20:31 | PC.NURSE ---
I assumed care of this pt at 1900. At that time he was given Oxycodone 5mg PO due to 10/10 L shoulder pain. At 1930 he was requesting additional pain medicines. I texted Pineda SY regarding this and she requested pt receive an additional 5mg PO Oxycodone (for a total of 10mg) and she changed the PRN Oxycodone to 10mg Q4hr. pt aware, additional Oxycodone 5mg PO given. Nursing report given to floor, pt en route to inpatient bed.
[2021-10-16 20:44] VITALS: BP 153/78; PULSE 93; RESP 18; TEMP 36.9; O2SAT 94
[2021-10-16 20:49] VITALS: BMI 33.5
[2021-10-16 23:15] VITALS: BP 138/81; PULSE 85; RESP 16; TEMP 36.8; O2SAT 94
[2021-10-17] VITALS (14 sets, daily range): BP systolic 105–151; BP diastolic 68–91; PULSE 76–102; RESP 10–20; TEMP 36.4–37; O2SAT 93–100
[2021-10-17] MEDS: oxyCODONE HCl Immed Release 5 MG TABLET 10 MG PO ×3 (01:01→23:24)
--- NOTE | 2021-10-17 05:09 | PC.NURSE ---
Around 0400 pt stated his throat was dry/sore because he couldn't drink anything and the air was dry. Patient requested a throat lozenger. Yuli BUI was notified and stated she could not order one that was not medicated. She declined giving patient a few ice chips and told me to keep him NPO for OR. Patient made aware and is resting with sling on. +CMS and +radial pulse.
[2021-10-17 06:03] LABS: MANUAL DIFF FLAG NO
[2021-10-17 06:06] LABS: Basophils Percent Auto 0.4 % (0-2); Eosinophils Absolute Auto 0.2 X10*3/uL (0.0-0.4); Eosinophils Percent Auto 1.9 % (0-4); Hemoglobin 12.9 g/dl (14.0-18.0); Imm Gran Abs Auto 0.04 X10*3/uL (0.00-0.03); Imm Gran Pct Auto 0.4 % (0.0-0.4); Lymphocytes Absolute Auto 3.8 X10*3/uL (1.2-4.9); Lymphocytes Percent Auto 42.1 % (20-40); Mean Corpuscular HGB Conc 31.5 g/dl (31.0-36.0); Mean Corpuscular Hemoglobin 26.8 pg (27.0-33.0); Mean Corpuscular Volume 85.1 fL (80.0-98.0); Mean Platelet Volume 10.7 fL (9.4-12.4); Monocytes Absolute Auto 0.8 X10*3/uL (0.1-1.2); Monocytes Percent Auto 9.3 % (2-11); Neutrophils Absolute Auto 4.2 x10*3/uL (2.0-8.3); Neutrophils Percent Auto 45.9 % (45-73); Platelet Count 174 X10*3/uL (160-400); Red Blood Count 4.82 X10*6/uL (4.60-5.80); Red Cell Distribution Width 15.8 % (11.0-16.0); White Blood Count 9.1 X10*3/uL (4.8-10.8)
[2021-10-17 06:36] LABS: Anion Gap 12 (12-20); Blood Urea Nitrogen 24 mg/dL (9-16); Calcium 8.9 mg/dL (8.4-10.2); Carbon Dioxide 23 mmol/L (22-29); Chloride 106 mmol/L (96-108); Creatinine Clr Calc Pharmacy 130.2; Estimated Glomerular Filt Rate > 60; Glucose Fasting 97 mg/dL (60-99); Potassium 4.1 mmol/L (3.3-5.1); Sodium 137 mmol/L (135-145)
--- NOTE | 2021-10-17 07:36 | PM.HPOR ---
History of Present Illness History of Present Illness Date of Service: 10/17/21 Chief complaint: Left Clavicle Fx Narrative: Ethan Fontenot is a 46 year old male who presented to the ER on 10-16-21 after sustaining a follow-up playing basketball. He states that he had prior clavicle ORIF 2 years ago at [facility] with hardware. He was last seen by [facility] in March where there was a mention of IVDA/opioid abuse history. Patient denies any current usage. He is a current 1/4 pack smoker per day. Review of Systems Review of Systems: Yes all other systems are reviewed and are negative PMFSH Past Medical History Medical History Clavicle fracture DVT (deep venous thrombosis) Forearm fracture Polysubstance abuse Social History Social History Household Members: Family Household Members Other:: [facility] [place] Housing: House Do you presently have visiting nurse or other home services: No Patient Tobacco Use Status: Current everyday Tobacco user Tobacco use type: Cigarette Cigarettes Per Day: 10 Years Smoked: 20 Smoked in Last 30 Days: Yes Patient Interested in Nicotine Replacement: Yes Patient Given Instructions on How to Stop Smoking: No Second Hand Smoke Exposure: Yes Use of substances other than those prescribed or required for medical reasons: No Currently Displaying Signs/Symptoms of Drug Intoxication Withdrawal: No Any prior treatment program specific to substance use: No Have you been hit, kicked, punched, or otherwise hurt by someone within the past year? If so, by whom?: No Do you feel safe in your current relationship?: Yes Is there a partner from a previous relationship who is making you feel unsafe now?: No Are you made to feel afraid or neglected: No Advance Directives: Yes Advance Directives Information Provided: No Advance Directives on File: Yes Advance Directives Date on File: 10/17/21 Do you have thoughts of harming others: None Do you have a plan to hurt others: No Plan Recently lost weight without trying: No How much weight loss: Not applicable Eating poorly because of decreased appetite: No Nutrition screen score: 0 Nutrition Risks: No Nutritional Risk Poor oral hygiene: No service: No Current occupational status: unemployed Meds Allergies Allergy/AdvReac Type Severity Reaction Status Date / Time No Known Allergies Allergy Unverified 04/20/20 16:48 [No Known Allergies*] Active Medications: Current Medications Acetaminophen (Acetaminophen 325 Mg Tablet) 650 mg PO Q6H PRN PRN Reason: Pain, Mild (Pain Scale 1-3) Dextrose/Sodium Chloride (D51/2ns) 1,000 mls @ 80 mls/hr IVCONT .[id number] [facility] Last Admin: 10/16/21 17:28 Dose: 80 mls/hr Documented by: Ondansetron HCl (Ondansetron Hcl 4 Mg/2 Ml Vial) 4 mg IVPUSH Q8H PRN PRN Reason: Nausea and Vomiting Oxycodone HCl (Oxycodone Hcl Immed Release 5 Mg Tablet) 10 mg PO Q4H PRN PRN Reason: Pain, Moderate (Pain Scale 4-6 Last Admin: 10/17/21 01:01 Dose: 10 mg Documented by: Pharmacy Consult (Consult Rx Perform Med Rec) 1 each MISCELLANE ONCE PRN PRN Reason: Consult order Sodium Chloride (0.9 % Sodium Chloride Flush 3 Ml Syringe) 3 ml IVFLUSH QSHIFT [facility] Last Admin: 10/17/21 00:33 Dose: Not Given Documented by: Home Medications Medication Instructions Recorded Confirmed Last Taken Type clonidine HCl 0.1 mg tablet 1 tab PO BEDTIME 10/16/21 10/16/21 10/15/21 History ibuprofen 400 mg tablet 1 tab PO TID PRN 10/16/21 10/16/21 10/15/21 History sertraline 50 mg tablet 1 tab PO DAILY 10/16/21 10/16/21 10/15/21 History trazodone 100 mg tablet 150 mg PO BEDTIME 10/16/21 10/16/21 10/15/21 History Physical Exam Vital Signs: Vital Signs: Last Vital Signs Temp 98.6 F 10/17/21 07:28 Pulse 90 10/17/21 07:28 Resp 17 10/17/21 07:28 BP 140/85 H 10/17/21 07:28 Pulse Ox 94 10/17/21 07:28 BMI result Body Mass Index 33.5 Const: General: cooperative, healthy appearing and no acute distress Resp: Effort & Inspection: normal respiratory effort and able to speak in complete sentences Cardio: Rate: regular rate Peripheral pulses: Peripheral pulses 2+ throughout GI: Palpation (GI): Soft to palpation Skin: Lesions: no lesions Rashes: no rashes Extrem: Other: Left clavicle skin intact. Pain with any motion of the shoulder. Patient has shoulder close to body guarding. NVI. Results Labs Result Diagrams: 10/17/21 05:40 10/17/21 05:40 Labs: Abnormal lab results 10/16/21 10/16/21 10/17/21 Range/Units 17:35 17:35 05:40 WBC 12.9 H (4.8-10.8) X10*3/uL Hgb 13.9 L 12.9 L (14.0-18.0) g/dl Hct 41.0 L (42.0-52.0) % MCH 26.9 L 26.8 L (27.0-33.0) pg Immature Gran % (Auto) 0.5 H (0.0-0.4) % Lymph % (Auto) 19.3 L 42.1 H (20-40) % Abs Immat Gran (auto) 0.07 H 0.04 H (0.00-0.03) X10*3/uL Absolute Neuts (auto) 9.4 H (2.0-8.3) x10*3/uL BUN 28 H (9-16) mg/dL ALT 54 H (0-40) U/L 10/17/21 Range/Units 05:40 WBC (4.8-10.8) X10*3/uL Hgb (14.0-18.0) g/dl Hct (42.0-52.0) % MCH (27.0-33.0) pg Immature Gran % (Auto) (0.0-0.4) % Lymph % (Auto) (20-40) % Abs Immat Gran (auto) (0.00-0.03) X10*3/uL Absolute Neuts (auto) (2.0-8.3) x10*3/uL BUN 24 H (9-16) mg/dL ALT (0-40) U/L H & H 10/16/21 10/17/21 Range/Units 17:35 05:40 Hgb 13.9 L 12.9 L (14.0-18.0) g/dl Hct 44.1 41.0 L (42.0-52.0) % Coagulation 10/16/21 Range/Units 17:35 INR 1.0 (0.9-1.1) All other labs normal. Assessment and Plan (1) Clavicle fracture: Status: Acute Plan I discussed the case with Dr. Lin and explained the extent of the injury to the patient and options available which include surgical intervention. I explained the procedure in detail along with the length of recovery and rehab course. I explained the risk, benefits and alternatives. Risk including, but not limited to infection, blood clots, bleeding, non union or malunion and nerve/tissue damage to surrounding areas. I answered all their questions and with their understanding they have consented to move forward with Operative Fixation of the left clavicle. The patient will be NPO after midnight. Educated the patient on importance of quitting smoking and smokings effects on the healing process. Patient understands. Quality Stroke Does the patient have a stroke diagnosis?: No VTE Prior VTE?: No VTE Risk Level:: Surgical - low VTE Device Contraindication: N/A - Device Ordered VTE Drug Contraindication: N/A - Med Ordered Procedures Date of Service Date of Service: 10/17/21
[2021-10-17] MEDS: Acetaminophen 325 MG TABLET 650 MG PO (08:04)
[2021-10-17] MEDS: Dextrose 5 % and 0.45 % NaCl 1,000 ML 80 ML IVCONT ×2 (08:05→23:26)
[2021-10-17] MEDS: HYDROmorphone HCl 0.5 MG/0.5 ML SYRINGE 0.25 MG IVPUSH ×3 (10:21→22:25)
--- NOTE | 2021-10-17 12:21 | MHC.SHP ---
Pre-Procedural Eval Section A Date of Service: 10/17/21 The patient is an INPATIENT: Yes Changes since office visit: Yes Patient answered all questions; No Cold of Flu in the past 2 weeks, No New Medical Problems and No Changes in Medication The History & Physical has been completed within 30 days and I have reviewed it.: Yes Section B Chief Complaint: Left Clavicle Fx Allergies: Allergies Allergy/AdvReac Type Severity Reaction Status Date / Time No Known Allergies Allergy Unverified 04/20/20 16:48 [No Known Allergies*] Plan I have reviewed the history and physical and performed a pertinent physical examination on my patient. No changes have occurred unless specified.
--- NOTE | 2021-10-17 14:49 | P.BOP_ITS ---
Brief Operative Note Date of Service: 10/17/21 Pre-op diagnosis: left clavicle fracture Post-op diagnosis: other (left clavicle non union) Procedure: ORIF clavicle non union Implants: [place] lateral locking plate 2.5 mg Brannon Moncada Surgeon: Davon Lin MD Anesthesia: GETA and local Was an Merchandise Supervisor used for this Procedure?: Yes Merchandise Supervisor: Yuli Sung Estimated blood loss (mL): 200 IV fluids (mL): 1,000 Pathology: none sent Condition: stable Disposition: PACU
[2021-10-17] MEDS: Haloperidol Lactate 5 MG/ML VIAL 1 MG IVPUSH (15:55)
[2021-10-17] MEDS: ceFAZolin Sodium/Dextrose,Iso 2 GM/50 ML PIGGYBACK IV (19:41)
[2021-10-17] MEDS: 0.9 % Sodium Chloride Flush 3 ML SYRINGE IVFLUSH (19:48)
[2021-10-18] MEDS: HYDROmorphone HCl 0.5 MG/0.5 ML SYRINGE 0.25 MG IVPUSH ×3 (01:17→10:20)
[2021-10-18] MEDS: HYDROmorphone HCl 0.5 MG/0.5 ML SYRINGE IVPUSH (03:46)
[2021-10-18 04:01] VITALS: BP 139/84; PULSE 99; RESP 16; TEMP 36.9; O2SAT 99
[2021-10-18 05:51] LABS: MANUAL DIFF FLAG NO
[2021-10-18 05:55] LABS: Basophils Percent Auto 0.2 % (0-2); Eosinophils Absolute Auto 0.2 X10*3/uL (0.0-0.4); Hematocrit 38.2 % (42.0-52.0); Imm Gran Abs Auto 0.02 X10*3/uL (0.00-0.03); Imm Gran Pct Auto 0.2 % (0.0-0.4); Lymphocytes Absolute Auto 2.6 X10*3/uL (1.2-4.9); Lymphocytes Percent Auto 32.8 % (20-40); Mean Corpuscular HGB Conc 31.4 g/dl (31.0-36.0); Mean Corpuscular Hemoglobin 26.7 pg (27.0-33.0); Mean Corpuscular Volume 84.9 fL (80.0-98.0); Mean Platelet Volume 10.6 fL (9.4-12.4); Monocytes Percent Auto 12.2 % (2-11); Neutrophils Absolute Auto 4.2 x10*3/uL (2.0-8.3); Neutrophils Percent Auto 52.6 % (45-73); Platelet Count 164 X10*3/uL (160-400); Red Cell Distribution Width 15.6 % (11.0-16.0)
--- NOTE | 2021-10-18 06:15 | PC.NURSE ---
Pt left shoulder dressing is CDI, pain controlled with prn and scheduled Dilaudid, able to ambulate to the BR voided and passed BM as pt claimed, had an incident of going outside to smoke 2x, pt was advised not to go outside while in the hospital as per policy, offered for nicotine patch and pt was agreeable, MD radiation oncology therapist was notified.
[2021-10-18 06:17] LABS: Anion Gap 10 (12-20); Blood Urea Nitrogen 17 mg/dL (9-16); Calcium 8.6 mg/dL (8.4-10.2); Carbon Dioxide 26 mmol/L (22-29); Chloride 106 mmol/L (96-108); Creatinine Clr Calc Pharmacy 134.3; Estimated Glomerular Filt Rate > 60; Glucose Fasting 112 mg/dL (60-99); Potassium 4.2 mmol/L (3.3-5.1); Sodium 138 mmol/L (135-145)
[2021-10-18] MEDS: Nicotine 21 MG PATCH.TD24 TRANSDERMA (07:27)
[2021-10-18 08:00] VITALS: BP 140/90; PULSE 79; RESP 18; TEMP 36.8; O2SAT 96
[2021-10-18] MEDS: oxyCODONE HCl Immed Release 5 MG TABLET 10 MG PO (08:46)
[2021-10-18] MEDS: Acetaminophen 325 MG TABLET 650 MG PO (08:46)
--- NOTE | 2021-10-18 08:52 | PM.DS ---
DS: Providers Provider Date of Service: 10/18/21 Date of admission: 10/16/21 16:55 Primary care physician: Unknown Physician DS: Diagnosis Discharge Diagnosis (1) Clavicle fracture: Status: Acute DS: Summary Hospital Course Hospital Course: The patient underwent a successful left clavicle ORIF they were transferred to PACU and then to the floor to recover. During their stay, their vitals were stable, afebrile at 98.5. Labs were unremarkable, H/H 12.0/38.2. Prior to discharge, their dressing was changed, incision clean dry and intact, and the plan was to be discharged home. Time Spent with Patient Time attestation: Total time spent providing and/or coordinating discharge services: Discharge coordination time: Less than 30 minutes Quality: Stroke Does the patient have a stroke diagnosis?: No Physical Exam Vital Signs: Vital Signs: Last Vital Signs Temp 98.5 F 10/18/21 04:01 Pulse 99 10/18/21 04:01 Resp 16 10/18/21 04:01 BP 139/84 10/18/21 04:01 Pulse Ox 99 10/18/21 04:01 BMI result Body Mass Index 33.5 Const: General: cooperative, healthy appearing and no acute distress Resp: Effort & Inspection: normal respiratory effort and able to speak in complete sentences Cardio: Rate: regular rate Peripheral pulses: Peripheral pulses 2+ throughout GI: Palpation (GI): Soft to palpation Skin: Lesions: no lesions Rashes: no rashes Extrem: Other: Left clavicle Aquacel dressing is clean dry and intact. Patient has sensation over the biceps and forearm. Radial pulse intact. DS: Data Data Completed and Pending Completed studies during hospitalization [Text1]: Procedures Resection of Appendix, Percutaneous Endoscopic Approach (04/26/21) Labs on day of discharge: Laboratory Results - last 24 hr 10/18/21 10/18/21 05:34 05:34 WBC 8.0 RBC 4.50 L Hgb 12.0 L Hct 38.2 L MCV 84.9 MCH 26.7 L MCHC 31.4 RDW 15.6 Plt Count 164 MPV 10.6 Immature Gran % (Auto) 0.2 Neut % (Auto) 52.6 Lymph % (Auto) 32.8 [place] % (Auto) 12.2 H Eos % (Auto) 2.0 Baso % (Auto) 0.2 Lymph # (Auto) 2.6 [place] # (Auto) 1.0 Eos # (Auto) 0.2 Baso # (Auto) 0.0 Abs Immat Gran (auto) 0.02 Absolute Neuts (auto) 4.2 Absolute Nucleated RBC 0.000 Nucleated RBC % (auto) 0.0 Sodium 138 Potassium 4.2 Chloride 106 Carbon Dioxide 26 Anion Gap 10 L BUN 17 H Creatinine 0.94 Estim Creat Clear Calc 134.3 Estimated GFR > 60 Fasting Glucose 112 H Calcium 8.6 Discharge Plan Discharge Patient Disposition: Home, Self-Care Discharge Diagnosis: s/p left clavicle ORIF Referrals: Yuli Sung PA-C [Physician Computer Technical Support Specialist] - 1 Week (1 week wound check ) Physician,Kathia Escobar [Primary Care Provider] - 1 Week Discharge Medications: New oxycodone 10 mg tablet 10 mg PO Q4H PRN (Reason: Pain, Moderate (Pain Scale 4-6) 7 Days Qty: 42 0RF Continued clonidine HCl 0.1 mg tablet 1 tab PO BEDTIME 0RF trazodone 100 mg tablet 150 mg PO BEDTIME 0RF ibuprofen 400 mg tablet 1 tab PO TID PRN (Reason: Pain (Scale Score 4-6)) 0RF sertraline 50 mg tablet 1 tab PO DAILY 0RF Discharge Orders: Discharge Order (Routine); Ordered 10/18/21 Ordered By: Yuli Sung Activity on Discharge: Use Splints or Immobilizers Stand Alone Forms: Patient Portal Discharge page Print Language: Spanish Care Plan Goals: Keep the bandage clean, dry and intact. Sling for comfort, ok to remove for pendulums Do not shower, bathe or apply creams or lotion to incision Follow up with orthopedics in 2 weeks Health Concerns: none Plan of Treatment: pain management and rom of the left shoulder Assessment: stable for d/c Discharge Date/Time: 10/18/21 11:19
--- NOTE | 2021-10-18 09:24 | MHC.CM.PN ---
PATIENT IS DISCHARGED HOME - SELF CARE. HE IS ABLE TO ARRANGE TRANSPORTATION. RN AWARE OF PLAN
--- NOTE | 2021-10-18 11:14 | HO.POSTANES ---
Post Anesthesia Evaluation Post Anesthesia Evaluation Vital Signs: Vital Signs Temp Pulse Resp BP Pulse Ox 10/18/21 08:00 98.3 F 79 18 140/90 H 96 10/18/21 04:01 98.5 F 99 16 139/84 99 10/17/21 23:32 97.8 F 95 20 139/91 H 95 Anesthesia: General Mental Status: Awake Pain Control: Satisfactory Nausea/Vomiting: None Hydration: Adequate Anesthesia-Related Issues: No Anes. Related Issues
--- NOTE | 2021-10-19 10:26 | W.PM.OPN ---
Operative Note Operative Note Date of Service: 10/17/21 Narrative: Date of Service: 10/17/21 Pre-op diagnosis: left clavicle fracture Post-op diagnosis: other (left clavicle non union) Procedure: ORIF clavicle non union Implants: [place] lateral locking plate 2.5 mg Vitoss, [place] Surgeon: Davon Lin MD Anesthesia: GETA and local Was an Operator Maintainer used for this Procedure?: Yes Operator Maintainer: Yuli Sung Estimated blood loss (mL): 200 IV fluids (mL): 1,000 Pathology: none sent Condition: stable Disposition: PACU Procedure in detail: Patient was brought to the operating room and placed in the beach chair position. He was prepped and draped in standard sterile fashion and a time out was called to identify proper site, proper procedure and IV antibiotics per weight were administered. I began by opening up the prior oblique incision over the clavicle. Full-thickness flaps were developed and the 2 plates were easily identified. Using a hex screwdriver these were removed and the fracture was examined. There was evidence of a subacute nature to this injury or possibly a delayed or and partial union as the distal clavicle piece did not demonstrate signs of acute injury even though the patient stated he fell 3 days ago. I used two lobster claw tenaculums to reduce the fracture and used a long superior distal clavicle plate with several bicortical screws in the distal fragment. Prior to screw placement the bony edges were debrided down to bleeding bone. Once biplanar fluoroscopy and visual inspection confirmed the fracture reduction and the plate position I provisionally held it with K-wire and placed 2.5 mL of Vitoss synthetic bone at the site of prior nonunion/fracture. I then placed the remaining screws using standard AO technique. I was extremely satisfied with the stability and alignment of the fracture. Prior to placing the Vitoss I irrigated copiously. I then closed with absorbable suture skin glue and Steri-Strips. Patient was placed into a sterile dressing extubated brought to recovery room in stable condition there were no known complications.
== END 2021-10-18 11:19 | disposition home or self-care (01) | DRG 320 ==
LOC: HO.ED 16:26 → HO.EDOVER 17:09 → HO.S3 19:35
PROVIDERS: Orthopaedic Surgery; Physician Assistant Medical; Admitting Provider Physician Assistant; Emergency Provider Emergency Medicine; Visit Provider Physician Assistant
PROC: 0PPB04Z Removal of Internal Fixation Device from Left Clavicle, Open Approach (ICD-10-PCS; CPT 23515; principal; 2021-10-17 13:15)
DX: S42.002P Fracture of unspecified part of left clavicle, subsequent encounter for fracture with malunion (principal); F17.210 Nicotine dependence, cigarettes, uncomplicated; X58.XXXD Exposure to other specified factors, subsequent encounter; Z20.822 Contact with and (suspected) exposure to COVID-19; Z71.6 Tobacco abuse counseling; Z79.899 Other long term (current) drug therapy
CPT/HCPCS: 36415; 73000; 80048; 80053; 85025; 85610; 85730; 86850; 86900; 86901; 87635; 99285; C1713; J0690; J1170; J1200; J2250; J3010

== ENCOUNTER → 2021-10-25 12:57 | Outpatient (BNVA) | payer OTHER, SELFPAY | PROVIDERS: Visit Provider Physician Assistant | DX: S42.002D Fracture of unspecified part of left clavicle, subsequent encounter for fracture with routine healing (principal) | CPT/HCPCS: 99212 ==

== ENCOUNTER → 2021-11-01 12:55 | Outpatient (BNVA) | payer OTHER, SELFPAY | PROVIDERS: PCP Internal Medicine; Visit Provider Physician Assistant | DX: S42.002D Fracture of unspecified part of left clavicle, subsequent encounter for fracture with routine healing (principal) | CPT/HCPCS: 99212 ==

== ENCOUNTER 2021-11-26 07:57 | Outpatient (REF) | payer OTHER, SELFPAY ==
--- NOTE | ~2021-11-26 | XR_ITS ---
EXAMINATION: XR CLAVICLE, LEFT CLINICAL INFORMATION: Left clavicle fracture. COMPARISON: 10/17/2021 and studies dating back to 03/27/2019. TECHNIQUE: Two views of the left clavicle. 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 The major bone fragments are in better alignment than previously and there is no widening of the coracoclavicular space. XR/XR clavicle LT IMPRESSION: Sideplate and screw fixation of comminuted left clavicle fracture with good alignment of the major fracture fragments.
== END 2021-11-26 07:58 | disposition home or self-care (01) ==
LOC: HO.HOSX 07:57
PROVIDERS: Visit Provider Physician Assistant
DX: S42.002D Fracture of unspecified part of left clavicle, subsequent encounter for fracture with routine healing (principal)
CPT/HCPCS: 73000; 99212

== ENCOUNTER 2021-11-27 14:00 | Outpatient (RCR) | payer OTHER, SELFPAY ==
--- NOTE | 2022-04-25 10:21 | MHC.PT.DC ---
[facility] [place] Office [place] Office [place] Office [address] Kimmie [place] [address] [phone] F: [phone] F: [phone] F: [phone] F: [phone] Physical Therapy Discharge Report Diagnosis: L clavicle fracture Date of Surgery: 10/17/21 Date of Evaluation: 11/21/21 Date of Discharge: 12/26/21 Treatments to Date: 2 Cancellations to Date: No Shows to Date: Discharge Status: Improved Function Independent with HEP Discharge Summary: 11/27/21: pt progressing well overall with ROM. some discomfort but follows cues well for limiting pain with ex. CP to finish. hep issued. Patient is a 46 year old R handed male who presents with s/s consistent with ORIF L clavicle. 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 Patient past medical history includes 3 other L UE surgeries, R knee surgery and tibial plateau fracture. Current impairments include pain, posture, ROM, strength, activity tolerance and functional mobility. Functional limitations include decreased ability to use L UE for all functional activities. Patient is motivated with good rehab potential. Skilled PT will address impairments and functional limitations in order to achieve goals. Electronically signed by: Patric Anton, PT Please sign and return to therapist. Thank you for your referral.
== END 2022-05-03 13:51 | disposition home or self-care (01) ==
LOC: HO.PTCHIC 14:00
PROVIDERS: PCP Internal Medicine; Visit Provider Physician Assistant
DX: S42.002A Fracture of unspecified part of left clavicle, initial encounter for closed fracture (principal)
CPT/HCPCS: 97110; 97162

== ENCOUNTER 2021-11-28 07:41 | Emergency (ER) | payer OTHER, SELFPAY ==
--- NOTE | ~2021-11-28 | CT_ITS ---
EXAMINATION: CT HEAD WITHOUT CONTRAST CLINICAL INFORMATION: Severe headache. COMPARISON: 03/27/[address] scan. TECHNIQUE: Contiguous axial imaging was performed from the skull base to vertex without intravenous administration of contrast. Coronal and sagittal reformatted images were obtained. This CT examination was performed using dose optimization techniques as appropriate, variously including the following: *Automated exposure control *Adjustment of mA and/or kV according to patient size (this includes techniques or standardized protocols for targeted exams where dose is matched to indication/reason for exam; i.e. extremities or head) *Use of iterative reconstruction technique DLP: 731 mGy-cm FINDINGS: There is no evidence of acute intracranial hemorrhage or territorial infarction. No abnormal mass effect or midline shift is seen. Waite to white matter differentiation is well preserved. No extra-axial fluid collections are identified. The ventricles are normal in size. There is no abnormal attenuation within the brain parenchyma. The osseous structures and soft tissues are normal. The mastoid air cells are clear. Mild mucosal thickening is seen in the frontal, bilateral ethmoid and maxillary sinuses. A retention cyst versus inflammatory polyp is seen along the anterosuperior wall the right maxillary sinus measuring 0.7 cm (image 85, series 18). CT/CT head/brain wo con IMPRESSION: No acute intracranial pathology.
--- NOTE | ~2021-11-28 | CT_ITS ---
EXAMINATION: CT SHOULDER WITH CONTRAST, LEFT CLINICAL INFORMATION: Left shoulder pain following surgery. COMPARISON: Most recent left clavicle radiographs dated 11/26/2021. TECHNIQUE: Contiguous axial CT images of the left shoulder were obtained following the IV administration of 85 mL Omnipaque 350 contrast. Multiplanar reformats were provided and reviewed. This CT examination was performed using dose optimization techniques as appropriate, variously including the following: *Automated exposure control *Adjustment of mA and/or kV according to patient size (this includes techniques or standardized protocols for targeted exams where dose is matched to indication/reason for exam; i.e. extremities or head) *Use of iterative reconstruction technique DLP: 867 mGy-cm FINDINGS: Redemonstration of a superior stabilization plate with fixation screws at the distal clavicle. No hardware fracture. There is perihardware lucency adjacent to the distal clavicular screws, similar when compared to the recent radiographs. There is persistence of a comminuted distal clavicular fracture with no significant osseous bridging. There are multiple resultant osseous fragments. There is no associated soft tissue mass or organized fluid collection, however, evaluation is somewhat limited due to hardware artifact. No additional fracture or dislocation. The acromioclavicular joint is maintained. No joint space narrowing or marginal osteophytes. No abnormal soft tissue mass or fluid collection. The rotator cuff tendons are grossly intact, however, evaluation significantly limited on CT examination. The visualized left lung is grossly clear, however, evaluation is limited due to respiratory artifact. CT/CT shoulder LT w con IMPRESSION: Redemonstration of a left clavicular ORIF without hardware fracture. There is perihardware lucency adjacent to the distal/lateral screws, similar when compared to the recent radiographs. There is persistence of an oblique clavicular fracture with multiple small osseous fracture fragments and no significant osseous bridging. Findings could indicate nonunion versus loosening or infection. No visualized fluid collection or soft tissue mass. Evaluation somewhat limited due to metallic artifact.
--- NOTE | 2021-11-28 07:55 | ED_ITS ---
HPI - Headache General Chief Complaint: Fever Stated Complaint: Headache Time Seen by Provider: 11/28/21 07:55 Source: patient Mode of arrival: ambulatory Limitations: no limitations History of Present Illness HPI Narrative: 46 y/o male with history of left clavicle ORIF on 10/17 who presents to the ER with severe global headache, body aches, subjective fevers and feeling generally unwell for the last 24 hours. He states he was recently treated for a left sided ear infection with Augmentin and Prednisone 1 week ago but has some ongoing left sided ear pain. He started vomiting a few times yesterday and feels weak. He reports never having felt like this before. He has been going to PT for his left shoulder and reports worsening pain today after going to a session yesterday. He also has a dry cough, runny nose and nausea. MD elicited complaint: headache Onset (ago): day(s) (1) Onset description: gradually Location: generalized Severity: severe Pain scale (0-10): 10 Quality & Timing: aching and throbbing Exacerbating factors: none Relieving factors: nothing Context: occurred at rest Associated symptoms: fever, nausea, vomiting, weakness, cough and malaise Treatments prior to arrival: none Related Data Home Medications Medication Instructions Recorded Confirmed clonidine HCl 0.1 mg tablet 1 tab PO BEDTIME 10/16/21 10/16/21 ibuprofen 400 mg tablet 1 tab PO TID PRN 10/16/21 10/16/21 sertraline 50 mg tablet 1 tab PO DAILY 10/16/21 10/16/21 trazodone 100 mg tablet 150 mg PO BEDTIME 10/16/21 10/16/21 Previous Rx's Medication Instructions Recorded acetaminophen 500 mg tablet 500 mg PO Q4-6H PRN 30 Days #168 10/25/21 (Tylenol Extra Strength) tab oxycodone 5 mg tablet 5 mg PO Q8H PRN 7 Days #21 tab 11/09/21 Allergies Allergy/AdvReac Type Severity Reaction Status Date / Time No Known Allergies Allergy Verified 11/26/21 14:40 [No Known Allergies*] Review of Systems Review of Systems: Constitutional: + Fever, No Chills ENT/Mouth: No sore throat, No Rhinorrhea, No Swallowing Difficulty Eyes: No Eye Pain, No Swelling, No Redness Cardiovascular: No Chest Pain, No SOB, No Orthopnea, No Edema Respiratory: + Cough, No Sputum, No Wheezing, No dyspnea Gastrointestinal: + Nausea, + Vomiting, No Diarrhea, No abdominal Pain, No Hematochezia, No Melena Genitourinary: No Dysuria, No Urinary Frequency, No Hematuria Musculoskeletal: + joint pain, No Myalgias Skin: No Skin Lesions, No rash Neuro: No Weakness, No Numbness, No Dizziness, +Headache Psych: + Anxiety/Panic, No Depression Heme/Lymph: No Bruising, No Lymphadenopathy Endocrine: No Polyuria, No Polydipsia [facility] Past Medical History Medical History Clavicle fracture DVT (deep venous thrombosis) Forearm fracture Polysubstance abuse Social History Social History Household Members: Family Household Members Other:: JEANNINE Housing: House Do you presently have visiting nurse or other home services: No Alcohol intake: never Patient Tobacco Use Status: Never used Tobacco Tobacco use type: Cigarette Cigarette Packs Per Day: 0.5 Cigarettes Per Day: 10.0 Years Smoked: 20 Second Hand Smoke Exposure: No Use of substances other than those prescribed or required for medical reasons: No Advance Directives: Yes Advance Directives on File: Yes Advance Directives Date on File: 10/17/21 service: No Current occupational status: unemployed Physical Exam Vital Signs: Vital Signs: Last Vital Signs Temp 98.4 F 11/28/21 12:11 Pulse 109 H 11/28/21 12:11 Resp 19 11/28/21 12:11 BP 104/52 L 11/28/21 12:11 Pulse Ox 95 11/28/21 12:11 BMI result Body Mass Index 29.5 Appearance: Alert. Oriented X3. No acute distress. Eyes: Pupils equal, round and reactive to light. ENT: Pharynx normal. Normal EACs and TM's bilaterally. Neck: Normal inspection. Neck supple. CVS: Normal heart rate and rhythm. Pulses normal. Respiratory: No respiratory distress. Breath sounds normal. Abdomen: Soft and nontender. +BS x4 Skin: Skin very warm to touch and dry. Normal skin color. Normal skin turgor. No rashes. Extremities: Left anterior shoulder mildly erythematous and warm over the left clavicle. No palpable abscess. Limited ROM of the left arm. No lower extremity edema. Neuro: Oriented X 3. No motor deficit. No sensory deficit. Course Course Course Narrative: 46 y/o male with history of left clavicle ORIF on 10/17 presenting with headache, body aches, fever, vomiting and worsening left shoulder pain x1 day. Febrile and tachycardic on arrival with erythema and warmth of the left shoulder concerning for possible infection. Will get septic workup, give medication for headache and nausea and reassess. Reevaluation(s) Reevaluation #1: Patient found to be COVID positive. He is unvaccinated. CT head is normal. Lab work is otherwise unremarkable. CT scan of his shoulder is pending. Reevaluation #2: CT scan of the shoulder reads: Redemonstration of a left clavicular ORIF without hardware fracture. There is perihardware lucency adjacent to the distal/lateral screws similar when compared to the recent radiographs. There is persistence of an oblique clavicular fracture with multiple small osseous fracture fragments and no significant osseous bridging. Findings could indicate nonunion versus loosening or infection. No visualized fluid collection or soft tissue mass. Evaluation somewhat limited due to metallic artifact. Ortho consulted who reviewed the imaging - most likely nonunion and some screws not taking, advised not to lift with the left arm due to healing delay which he reports he has been compliant with. Less likely to be infectious process without any leukocytosis. At this time patient is stable for d/c home with supportive care for his COVID- 19. Return precautions discussed. Consultations Consultation #1: Ortho - Nakia Duran PA-C MDM - Headache Lab Data Result diagrams: 11/28/21 08:38 11/28/21 08:38 Labs: Lab Results 11/28/21 11/28/21 11/28/21 Range/Units 08:38 08:38 08:38 WBC 8.1 (4.8-10.8) X10*3/uL RBC 4.91 (4.60-5.80) X10*6/uL Hgb 13.2 L (14.0-18.0) g/dl Hct 40.5 L (42.0-52.0) % MCV 82.5 (80.0-98.0) fL MCH 26.9 L (27.0-33.0) pg MCHC 32.6 (31.0-36.0) g/dl RDW 15.9 (11.0-16.0) % Plt Count 186 (160-400) X10*3/uL MPV 10.9 (9.4-12.4) fL Immature Gran % (Auto) 0.7 H (0.0-0.4) % Neut % (Auto) 80.8 H (45-73) % Lymph % (Auto) 5.1 L (20-40) % Andrews % (Auto) 13.1 H (2-11) % Eos % (Auto) 0.2 (0-4) % Baso % (Auto) 0.1 (0-2) % Lymph # (Auto) 0.4 L (1.2-4.9) X10*3/uL Andrews # (Auto) 1.1 (0.1-1.2) X10*3/uL Eos # (Auto) 0.0 (0.0-0.4) X10*3/uL Baso # (Auto) 0.0 (0.0-0.2) X10*3/uL Abs Immat Gran (auto) 0.06 H (0.00-0.03) X10*3/uL Absolute Neuts (auto) 6.5 (2.0-8.3) x10*3/uL Absolute Nucleated RBC 0.000 (0.0-0.012) X10*3/uL Nucleated RBC % (auto) 0.0 (0.0-0.2) /100WBC Sodium 137 (135-145) mmol/L Potassium 4.1 (3.3-5.1) mmol/L Chloride 106 (96-108) mmol/L Carbon Dioxide 23 (22-29) mmol/L Anion Gap 12 (12-20) BUN 20 H (9-16) mg/dL Creatinine 1.29 (0.5-1.4) mg/dL Estim Creat Clear Calc 92.1 Estimated GFR 60 Random Glucose 114 (60-115) mg/dL Lactic Acid 0.9 (0.5-2.0) mmol/L Calcium 8.9 (8.4-10.2) mg/dL Magnesium 1.8 (1.6-2.6) mg/dL Total Bilirubin 0.4 (0.0-1.0) mg/dL Direct Bilirubin 0.2 (0.0-0.5) mg/dL AST 22 (5-37) U/L ALT 49 H (0-40) U/L Alkaline Phosphatase 86 (39-117) U/L Total Protein 7.2 (6.5-8.0) g/dL Albumin 4.3 (3.5-5.0) g/dL COVID-19 (REINA) (Negative) COVID-19 Clin Com Influenza Type A ([facility]E) (Negative) Influenza Type B (TERE) (Negative) Influenza A & B Note 11/28/21 11/28/21 Range/Units 08:38 08:38 WBC (4.8-10.8) X10*3/uL RBC (4.60-5.80) X10*6/uL Hgb (14.0-18.0) g/dl Hct (42.0-52.0) % MCV (80.0-98.0) fL MCH (27.0-33.0) pg MCHC (31.0-36.0) g/dl RDW (11.0-16.0) % Plt Count (160-400) X10*3/uL MPV (9.4-12.4) fL Immature Gran % (Auto) (0.0-0.4) % Neut % (Auto) (45-73) % Lymph % (Auto) (20-40) % Andrews % (Auto) (2-11) % Eos % (Auto) (0-4) % Baso % (Auto) (0-2) % Lymph # (Auto) (1.2-4.9) X10*3/uL Andrews # (Auto) (0.1-1.2) X10*3/uL Eos # (Auto) (0.0-0.4) X10*3/uL Baso # (Auto) (0.0-0.2) X10*3/uL Abs Immat Gran (auto) (0.00-0.03) X10*3/uL Absolute Neuts (auto) (2.0-8.3) x10*3/uL Absolute Nucleated RBC (0.0-0.012) X10*3/uL Nucleated RBC % (auto) (0.0-0.2) /100WBC Sodium (135-145) mmol/L Potassium (3.3-5.1) mmol/L Chloride (96-108) mmol/L Carbon Dioxide (22-29) mmol/L Anion Gap (12-20) BUN (9-16) mg/dL Creatinine (0.5-1.4) mg/dL Estim Creat Clear Calc Estimated GFR Random Glucose (60-115) mg/dL Lactic Acid (0.5-2.0) mmol/L Calcium (8.4-10.2) mg/dL Magnesium (1.6-2.6) mg/dL Total Bilirubin (0.0-1.0) mg/dL Direct Bilirubin (0.0-0.5) mg/dL AST (5-37) U/L ALT (0-40) U/L Alkaline Phosphatase (39-117) U/L Total Protein (6.5-8.0) g/dL Albumin (3.5-5.0) g/dL COVID-19 (REINA) Positive A (Negative) COVID-19 Clin Com See Note Influenza Type A (TERE) Negative (Negative) Influenza Type B (TERE) Negative (Negative) Influenza A & B Note See Note Critical Care Time Critical Care Time Critical Care Time: No Discharge Plan Discharge Clinical Impression: COVID-19 Patient Disposition: Home, Self-Care Instructions: Covid-19 Viral Syndrome and Novel Coronavirus (ED) Hey/Ath Additional Instructions: You were found to be COVID-19 POSITIVE today. Your oxygen levels were normal. Rest. Drink plenty of fluids. Do not go out in public for the next 7-10 days. Take over the counter cold/flu medications as needed for your symptoms. Take Tylenol and/or Motrin as needed for fevers and body aches. Follow up with your doctor this week. If you shortness of breath worsens, if you develop difficulty breathing or any other concerning symptom come back to the ER for further evaluation. Prescriptions: No Action acetaminophen [Tylenol Extra Strength] 500 mg tablet 500 mg PO Q4-6H PRN (Reason: fever or pain) 30 Days Qty: 168 0RF oxycodone 5 mg tablet 5 mg PO Q8H PRN (Reason: Pain, Moderate (Pain Scale 4-6) 7 Days Qty: 21 0RF clonidine HCl 0.1 mg tablet 1 tab PO BEDTIME 0RF trazodone 100 mg tablet 150 mg PO BEDTIME 0RF ibuprofen 400 mg tablet 1 tab PO TID PRN (Reason: Pain (Scale Score 4-6)) 0RF sertraline 50 mg tablet 1 tab PO DAILY 0RF Stand Alone Forms: Work/School Release
[2021-11-28 07:56] VITALS: BP 124/78; PULSE 115; RESP 19; TEMP 38.2; O2SAT 99; BMI 29.5
[2021-11-28] MEDS: 0.9 % Sodium Chloride 1,000 ML 999 ML IVCONT (08:41)
[2021-11-28] MEDS: Morphine Sulfate 4 MG/ML CARTRIDGE IVPUSH (08:42)
[2021-11-28] MEDS: ondansetron HCL 4 MG/2 ML VIAL IVPUSH (08:42)
[2021-11-28 08:44] VITALS: PULSE 106; RESP 18
[2021-11-28 08:50] LABS: MANUAL DIFF FLAG NO
[2021-11-28 08:51] LABS: Basophils Percent Auto 0.1 % (0-2); Eosinophils Percent Auto 0.2 % (0-4); Hematocrit 40.5 % (42.0-52.0); Hemoglobin 13.2 g/dl (14.0-18.0); Imm Gran Abs Auto 0.06 X10*3/uL (0.00-0.03); Imm Gran Pct Auto 0.7 % (0.0-0.4); Lymphocytes Absolute Auto 0.4 X10*3/uL (1.2-4.9); Lymphocytes Percent Auto 5.1 % (20-40); Mean Corpuscular HGB Conc 32.6 g/dl (31.0-36.0); Mean Corpuscular Hemoglobin 26.9 pg (27.0-33.0); Mean Corpuscular Volume 82.5 fL (80.0-98.0); Mean Platelet Volume 10.9 fL (9.4-12.4); Monocytes Absolute Auto 1.1 X10*3/uL (0.1-1.2); Monocytes Percent Auto 13.1 % (2-11); Neutrophils Absolute Auto 6.5 x10*3/uL (2.0-8.3); Neutrophils Percent Auto 80.8 % (45-73); Platelet Count 186 X10*3/uL (160-400); Red Blood Count 4.91 X10*6/uL (4.60-5.80); Red Cell Distribution Width 15.9 % (11.0-16.0); White Blood Count 8.1 X10*3/uL (4.8-10.8)
[2021-11-28 09:01] LABS: Lactic Acid 0.9 mmol/L (0.5-2.0)
[2021-11-28 09:03] LABS: COVID-19 Test Positive (Negative)
[2021-11-28 09:06] LABS: Alanine Aminotransferase 49 U/L (0-40); Albumin Level 4.3 g/dL (3.5-5.0); Alkaline Phosphatase 86 U/L (39-117); Anion Gap 12 (12-20); Aspartate Amino Transferase 22 U/L (5-37); Bilirubin Direct 0.2 mg/dL (0.0-0.5); Bilirubin Total 0.4 mg/dL (0.0-1.0); Blood Urea Nitrogen 20 mg/dL (9-16); Calcium 8.9 mg/dL (8.4-10.2); Carbon Dioxide 23 mmol/L (22-29); Chloride 106 mmol/L (96-108); Creatinine Clr Calc Pharmacy 92.1; Estimated Glomerular Filt Rate 60; Glucose Random 114 mg/dL (60-115); Magnesium 1.8 mg/dL (1.6-2.6); Potassium 4.1 mmol/L (3.3-5.1); Sodium 137 mmol/L (135-145); Total Protein 7.2 g/dL (6.5-8.0)
[2021-11-28 09:19] LABS: IDNOW Serial# 08D9AD1C; Influenza A Negative (Negative); Influenza B2 Negative (Negative)
[2021-11-28 10:00] VITALS: BP 133/88; PULSE 110; RESP 18; O2SAT 94
--- NOTE | 2021-11-28 10:00 | PC.NURSE ---
Patient arrive complaining of generalized pain, fever, and feeling like his skin is burning. Hx of shoulder sx one month ago. IV established and labs drawn. Patient tolerated well. Hung NS 1L and medicated with Zofran and Morphine. Awaiting results and CT at this time.
[2021-11-28] MEDS: iohexoL 350 MG/ML 100 ML INFUS..BTL IV (10:19)
--- NOTE | 2021-11-28 11:00 | PC.NURSE ---
Patient reports minimal pain relief from morphine. medicated with Toradol IV at this time. Patient found to be COVID positive. Awaiting CT results.
[2021-11-28] MEDS: Ketorolac Tromethamine 30 MG/ML VIAL IVPUSH (11:03)
[2021-11-28 12:11] VITALS: BP 104/52; PULSE 109; RESP 19; TEMP 36.9; O2SAT 95
[2021-11-28] MEDS: Acetaminophen 325 MG TABLET 975 MG PO (14:44)
[2021-11-28 14:45] VITALS: BP 130/79; PULSE 98; RESP 16; TEMP 38.1; O2SAT 97
== END 2021-11-28 14:55 | disposition home or self-care (01) ==
PROVIDERS: Physician Assistant; Emergency Provider Emergency Medicine; PCP Internal Medicine
DX: U07.1 COVID-19 (principal); S42.002D Fracture of unspecified part of left clavicle, subsequent encounter for fracture with routine healing; X58.XXXD Exposure to other specified factors, subsequent encounter; Z86.718 Personal history of other venous thrombosis and embolism
CPT/HCPCS: 70450; 73201; 80048; 80076; 83605; 83735; 85025; 87040; 87502; 87635; 96361; 96374; 96375; 99284; 99285; J1885; J2270; J2405; Q9967

== ENCOUNTER 2022-01-07 07:16 | Outpatient (REF) | payer OTHER, SELFPAY | END 2022-01-07 07:17 | disposition home or self-care (01) | LOC: HO.HOSX 07:16 | PROVIDERS: Visit Provider Physician Assistant | DX: Z13.89 Encounter for screening for other disorder (principal) ==

== ENCOUNTER 2022-05-23 11:15 | Outpatient (REF) | payer OTHER, SELFPAY ==
--- NOTE | ~2022-05-23 | XR_ITS ---
EXAMINATION: XR CLAVICLE, LEFT CLINICAL INFORMATION: Fracture COMPARISON: Previous x-rays most recent November [address] November 2021 TECHNIQUE: Two views of the left clavicle. FINDINGS: There is a plate and screws transfixing the left distal clavicle fracture. Orthopedic hardware appears intact. There is increasing lucency adjacent to the more lateral screws questionable for loosening. There may be increasing bone loss of the distal clavicle. There is a comminuted fracture of the left distal clavicle. Fracture lines are still seen. Alignment appears unchanged. There may be some interval increase in bony callus formation. XR/XR clavicle LT IMPRESSION: ORIF of left distal clavicle fracture. Fracture lines still seen. Alignment is unchanged. Increasing lucency adjacent to the more lateral screws questionable for evidence of loosening and increasing bone loss of the distal clavicle.
== END 2022-05-23 11:16 | disposition home or self-care (01) ==
LOC: HO.HOSX 11:15
PROVIDERS: Visit Provider Orthopaedic Surgery
DX: S42.032K Displaced fracture of lateral end of left clavicle, subsequent encounter for fracture with nonunion (principal); X58.XXXD Exposure to other specified factors, subsequent encounter; Z98.1 Arthrodesis status
CPT/HCPCS: 73000; 99212

== ENCOUNTER 2022-08-01 16:53 | Outpatient (REF) | payer OTHER, SELFPAY ==
--- NOTE | ~2022-08-01 | XR_ITS ---
EXAMINATION: XR CLAVICLE, LEFT CLINICAL INFORMATION: Fracture. COMPARISON: Left clavicle 05/23/2022 TECHNIQUE: Two views of the left clavicle. FINDINGS: There is a plate and screws transfixing the left distal clavicular fracture with the orthopedic hardware appearing intact. There is hypertrophic bridging callus formation along the inferior aspect of fracture line. The fracture line is still visualized. The alignment is unchanged. XR/XR clavicle LT IMPRESSION: Healing left distal clavicular fracture status post ORIF. The fracture line is still visualized. No change in the alignment of the fracture fragments. Overall no change since the last exam 05/23/2022.
== END 2022-08-01 16:54 | disposition home or self-care (01) ==
LOC: HO.HOSX 16:53
PROVIDERS: Visit Provider Orthopaedic Surgery
DX: S42.002K Fracture of unspecified part of left clavicle, subsequent encounter for fracture with nonunion (principal); F17.210 Nicotine dependence, cigarettes, uncomplicated; X58.XXXD Exposure to other specified factors, subsequent encounter
CPT/HCPCS: 73000; 99212

== ENCOUNTER 2022-10-17 08:48 | Outpatient (REF) | payer OTHER, SELFPAY ==
--- NOTE | ~2022-10-17 | XR_ITS ---
EXAMINATION: XR CLAVICLE, LEFT CLINICAL INFORMATION: Fracture, subsequently, COMPARISON: 08/01/2022 TECHNIQUE: Two views of the left clavicle. FINDINGS: Redemonstrated plate and screw fixation hardware traversing a fracture of the distal clavicle. Hardware appears intact. Fracture lines remain visible, and there is calcified callus formation though without convincing evidence for bony bridging. Alignment remains near-anatomic. XR/XR clavicle LT IMPRESSION: Healing fracture of the distal clavicle status post ORIF, similar to 08/01/2022.
== END 2022-10-17 08:49 | disposition home or self-care (01) ==
LOC: HO.HOSX 08:48
PROVIDERS: Visit Provider Orthopaedic Surgery
DX: S42.002K Fracture of unspecified part of left clavicle, subsequent encounter for fracture with nonunion (principal)
CPT/HCPCS: 73000; 99212

== ENCOUNTER 2023-01-17 10:06 | Outpatient (REF) | payer OTHER, SELFPAY ==
--- NOTE | ~2023-01-17 | XR_ITS ---
EXAMINATION: XR SHOULDER, LEFT CLINICAL INFORMATION: Left shoulder pain. COMPARISON: October 17, 2022. TECHNIQUE: Three views of the left shoulder. XR/XR shoulder LT 1V FINDINGS/IMPRESSION: There has been no gross significant radiographic change compared with October 17, 2022. Examination again demonstrates ORIF of a comminuted fracture of the distal end of the left clavicle. There is no evidence of bony callus formation. There is no gross evidence of hardware fracture. There are multiple old, healed left rib fractures. No acute fracture or dislocation is seen. The glenohumeral joint space appears maintained.
== END 2023-01-17 10:07 | disposition home or self-care (01) ==
LOC: HO.HOSX 10:06
PROVIDERS: Visit Provider Orthopaedic Surgery
DX: S42.002K Fracture of unspecified part of left clavicle, subsequent encounter for fracture with nonunion (principal); M54.16 Radiculopathy, lumbar region
CPT/HCPCS: 73020; 99212

== ENCOUNTER 2023-02-02 22:36 | Observation (INO) | payer OTHER, SELFPAY ==
[2023-02-02 22:38] VITALS: BP 123/81; PULSE 125; RESP 18; TEMP 36.6; O2SAT 92; BMI 31.0
[2023-02-02 23:24] LABS: Basophils Percent Auto 0.3 % (0-2); Mean Corpuscular Hemoglobin 27.4 pg (27.0-33.0); Mean Platelet Volume 10.9 fL (9.4-12.4); PLT CLUMP 1; Red Cell Distribution Width 14.6 % (11.0-16.0); SCAN SMEAR FLAG 1
[2023-02-02 23:26] LABS: Eosinophils Absolute Auto 0.1 X10*3/uL (0.0-0.4); Eosinophils Percent Auto 1.6 % (0-4); Hematocrit 45.8 % (42.0-52.0); Hemoglobin 15.3 g/dl (14.0-18.0); Imm Gran Abs Auto 0.05 X10*3/uL (0.00-0.03); Imm Gran Pct Auto 0.6 % (0.0-0.4); Lymphocytes Absolute Auto 2.4 X10*3/uL (1.2-4.9); Lymphocytes Percent Auto 27.6 % (20-40); MANUAL DIFF FLAG SCAN; Mean Corpuscular HGB Conc 33.4 g/dl (31.0-36.0); Mean Corpuscular Volume 81.9 fL (80.0-98.0); Monocytes Absolute Auto 0.7 X10*3/uL (0.1-1.2); Monocytes Percent Auto 8.2 % (2-11); Neutrophils Absolute Auto 5.4 x10*3/uL (2.0-8.3); Neutrophils Percent Auto 61.7 % (45-73); Red Blood Count 5.59 X10*6/uL (4.60-5.80)
[2023-02-02 23:31] LABS: Platelet Count 127 X10*3/uL (160-400); White Blood Count 8.8 X10*3/uL (4.8-10.8)
[2023-02-02 23:52] LABS: SLIDE REVIEW VERIFIED
[2023-02-03] VITALS (11 sets, daily range): BP systolic 91–126; BP diastolic 59–93; PULSE 85–107; RESP 10–20; TEMP 36.4–36.7; O2SAT 92–99; BMI 31.0
--- NOTE | 2023-02-03 00:08 | ED.SOB ---
HPI - SOB/Dyspnea General Chief Complaint: Dyspnea Stated Complaint: difficulty breathing Time Seen by Provider: 02/03/23 00:00 Source: patient Mode of arrival: ambulatory Limitations: no limitations History of Present Illness HPI Narrative: 47-year-old male history of pulmonary embolism/DVT on Eliquis came in for increase chest pain for the past 2 days and shortness of breath, but associated with dry coughing when he take deep breath, no hemoptysis or hematemesis, no recent travel, no lower extremity swelling tenderness, complaining also of left-sided chest pain has been constant, no aggravating factors or relieving factors. Related Data Home Medications Medication Instructions Recorded Confirmed clonidine HCl 0.1 mg tablet 1 tab PO BEDTIME 10/16/21 10/16/21 ibuprofen 400 mg tablet 1 tab PO TID PRN Pain (Scale Score 10/16/21 10/16/21 4-6) trazodone 100 mg tablet 150 mg PO BEDTIME 10/16/21 10/16/21 quetiapine 50 mg tablet 50 mg PO BEDTIME PRN insomnia 10/17/22 Previous Rx's Medication Instructions Recorded acetaminophen 500 mg tablet 500 mg PO Q4-6H PRN fever or pain 10/25/21 (Tylenol Extra Strength) 30 days #168 tabs Allergies Allergy/AdvReac Type Severity Reaction Status Date / Time No Known Allergies Allergy Verified 08/01/22 10:40 [No Known Allergies*] Review of Systems Review of Systems: All other systems are reviewed and are negative Constitutional: Reports as per HPI and Reports no additional constitutional complaints Eyes: Reports as per HPI and Reports no additional eye complaints Reports system reviewed and no additional complaints, except as documented Cardiovascular: Reports as per HPI and Reports no additional cardiovascular complaints Respiratory: Reports as per HPI and Reports no additional respiratory complaints Gastrointestinal: Reports as per HPI and Reports no additional gastrointestinal complaints Genitourinary: Reports no additional female genitourinary complaints Musculoskeletal: Reports no additional musculoskeletal complaints Skin/Breast: Reports system reviewed and no additional complaints, except as docu Psychiatric: Reports no additional psychiatric complaints Endocrine: Reports no additional endocrine complaints Hematologic/Lymphatic: Reports no additional hematologic/lymphatic complaints Allergic/Immunologic: Reports no additional allergic/immunologic complaints Reports system reviewed and no additional complaints, except as documented and Reports Abnormal speech present PMFSH Past Medical History Medical History Clavicle fracture DVT (deep venous thrombosis) Forearm fracture Polysubstance abuse Social History Social History Household Members: Family Household Members Other:: JEANNINE Housing: House Do you presently have visiting nurse or other home services: No Alcohol intake: never Patient Tobacco Use Status: Never used Tobacco Tobacco use type: Cigarette Cigarette Packs Per Day: 0.5 Cigarettes Per Day: 10.0 Years Smoked: 20 Smoked in Last 30 Days: Yes Second Hand Smoke Exposure: No Use of substances other than those prescribed or required for medical reasons: No Advance Directives: Yes Advance Directives on File: Yes Advance Directives Date on File: 10/17/21 service: No Current occupational status: unemployed Physical Exam Vital Signs: Vital Signs: Last Vital Signs Temp 97.9 F 02/03/23 00:18 Pulse 103 H 02/03/23 01:31 Resp 18 02/03/23 01:31 BP 107/59 L 02/03/23 01:31 Pulse Ox 99 02/03/23 01:31 O2 Del Method Room Air 02/03/23 01:31 BMI result Body Mass Index 31.0 Vital signs have been reviewed as appeared to be correct. Blood pressure normal. Heart rate normal. Respiration rate normal. Temperature normal. Oxygen saturation normal. Appearance: Alert. Oriented X3. No acute distress. Head: Normal external exam. Normocephalic. Atraumatic. No García signs noted. No raccoon eyes noted Eyes: PERRLA. EOMI. Conjunctiva and sclera normal. Eyelids normal. ENT: TM's Normal. Pharynx normal. Uvula midline. Moist mucous membranes. No trismus noted. No drooling noted. No muffled voice noted. Neck: Normal inspection. Neck supple. FROM. No adenopathy. Thyroid Normal. No meningeal signs. No neck mass noted. CVS: Normal heart rate and rhythm. Heart sound normal. No murmurs noted. Pulses normal throughout. Respiratory: No respiratory distress. Painless inspiration. Breath sounds normal. No wheezes/rales/rhonchi noted. Chest nontender. No accessory muscle usage noted or decreased air movement noted. Abdomen: Soft and nontender. Bowel sounds normal in all 4 quadrants. No distention noted. No organomegaly noted. No visible injury noted. Back: No CVA tenderness. Full range of motion noted. Skin: Skin warm and dry. Normal skin color. Normal skin turgor. No rashes/lesions/lacerations noted. Extremities: No lower extremity edema. Extremities exhibit normal range of motion. Extremities nontender. Neuro: Oriented X 3. Cranial nerve exam: II-XII are grossly intact No motor deficit. No sensory deficit. Reflexes normal. Course Course Course Narrative: 47-year-old male with history of pulmonary embolism on Eliquis last dose was yesterday morning, will discontinue Eliquis and start the patient on heparin (it has been over 12 hours since the last dose of Eliquis) will admit the patient to the medical floor to obtain vascular consultation in the morning. Medications Administered Discontinued Medications Generic Name Dose Route Start Last Admin Trade Name Freq PRN Reason Stop Dose Admin Iohexol 65 ml 02/03/23 02:02 02/03/23 02:02 Iohexol 350 Mg/Ml 100 Ml Infus..Btl IV 02/03/23 02:03 65 ml ONCE ONE Administration Medical Decision Making Differential Diagnosis Differential Diagnoses: The differential diagnosis associated with the presentation includes (Pulmonary embolism, ACS, CHF, electrolyte abnormalities, severe anemia.) Admission/Observation Consideration of admission/observation: Escalation of care including admission/observation considered Consult Healthcare Provider Management of the patient was discussed with: Hospitalist (Dr. Farrell) Lab Data MDM Lab Attestation statement: I reviewed the patient's lab results. 02/02/23 23:12 02/02/23 23:12 Labs: Lab Results 02/02/23 02/02/23 02/02/23 Range/Units 23:12 23:12 23:12 WBC 8.8 (4.8-10.8) X10*3/uL RBC 5.59 (4.60-5.80) X10*6/uL Hgb 15.3 (14.0-18.0) g/dl Hct 45.8 (42.0-52.0) % MCV 81.9 (80.0-98.0) fL MCH 27.4 (27.0-33.0) pg MCHC 33.4 (31.0-36.0) g/dl RDW 14.6 (11.0-16.0) % Plt Count 127 L D (160-400) X10*3/uL MPV 10.9 (9.4-12.4) fL Immature Gran % (Auto) 0.6 H (0.0-0.4) % Neut % (Auto) 61.7 (45-73) % Lymph % (Auto) 27.6 (20-40) % [place] % (Auto) 8.2 (2-11) % Eos % (Auto) 1.6 (0-4) % Baso % (Auto) 0.3 (0-2) % Lymph # (Auto) 2.4 (1.2-4.9) X10*3/uL [place] # (Auto) 0.7 (0.1-1.2) X10*3/uL Eos # (Auto) 0.1 (0.0-0.4) X10*3/uL Baso # (Auto) 0.0 (0.0-0.2) X10*3/uL Abs Immat Gran (auto) 0.05 H (0.00-0.03) X10*3/uL Absolute Neuts (auto) 5.4 (2.0-8.3) x10*3/uL Absolute Nucleated RBC 0.000 (0.0-0.012) X10*3/uL Nucleated RBC % (auto) 0.0 (0.0-0.2) /100WBC Smear Tech's Comments VERIFIED D-Dimer High Sensitivty 1730 NG/ML Sodium 139 (135-145) mmol/L Potassium 4.2 (3.3-5.1) mmol/L Chloride 109 H (96-108) mmol/L Carbon Dioxide 19 L (22-29) mmol/L Anion Gap 15 (12-20) BUN 22 H (9-16) mg/dL Creatinine 1.18 (0.5-1.4) mg/dL Estim Creat Clear Calc 82.7 Estimated GFR > 60 Random Glucose 146 H (60-115) mg/dL Calcium 9.0 (8.4-10.2) mg/dL Troponin I High Sens (<3.5-35.0) ng/L 02/02/23 Range/Units 23:12 WBC (4.8-10.8) X10*3/uL RBC (4.60-5.80) X10*6/uL Hgb (14.0-18.0) g/dl Hct (42.0-52.0) % MCV (80.0-98.0) fL MCH (27.0-33.0) pg MCHC (31.0-36.0) g/dl RDW (11.0-16.0) % Plt Count (160-400) X10*3/uL MPV (9.4-12.4) fL Immature Gran % (Auto) (0.0-0.4) % Neut % (Auto) (45-73) % Lymph % (Auto) (20-40) % [place] % (Auto) (2-11) % Eos % (Auto) (0-4) % Baso % (Auto) (0-2) % Lymph # (Auto) (1.2-4.9) X10*3/uL [place] # (Auto) (0.1-1.2) X10*3/uL Eos # (Auto) (0.0-0.4) X10*3/uL Baso # (Auto) (0.0-0.2) X10*3/uL Abs Immat Gran (auto) (0.00-0.03) X10*3/uL Absolute Neuts (auto) (2.0-8.3) x10*3/uL Absolute Nucleated RBC (0.0-0.012) X10*3/uL Nucleated RBC % (auto) (0.0-0.2) /100WBC Smear Tech's Comments D-Dimer High Sensitivty NG/ML Sodium (135-145) mmol/L Potassium (3.3-5.1) mmol/L Chloride (96-108) mmol/L Carbon Dioxide (22-29) mmol/L Anion Gap (12-20) BUN (9-16) mg/dL Creatinine (0.5-1.4) mg/dL Estim Creat Clear Calc Estimated GFR Random Glucose (60-115) mg/dL Calcium (8.4-10.2) mg/dL Troponin I High Sens 126.5 H* (<3.5-35.0) ng/L Independent Interpretation I performed an independent interpretation of an: CT Scan (CT angio of the chest: Bilateral pulmonary embolism) Radiology Impression Discussion of test interpretation with radiology: I have reviewed the radiologist's reading. Critical Care Time Critical Care Time Critical Care Time: Yes Total Critical Care Time: 60 Attestation: I spent 60 minutes providing critical care service to the patient, this including time spent at the bedside to evaluate the patient, reassess the patient, monitoring vital signs, review labs, and radiographic studies, counseling the patient/family, discussing the case with consultants, disposition the patient. Discharge Plan Discharge Clinical Impression: Pulmonary embolism Patient Disposition: Admitted As Inpatient
[2023-02-03 03:08] LABS: Prothrombin Time 11.5 SEC (10.0-13.1)
[2023-02-03 03:11] LABS: PTT Heparin Drip 28.9 SEC (53-77.9)
[2023-02-03 03:26] LABS: Troponin-I High Sensitivity 182.7 ng/L (<3.5-35.0)
[2023-02-03] MEDS: Nicotine 21 MG PATCH.TD24 TRANSDERMA (03:26)
[2023-02-03] MEDS: Heparin Sodium,Porcine/1/2NS 25,000 UNIT/250 ML IV.SOLN 12.57 UNIT IVCONT (03:37)
[2023-02-03 03:38] LABS: B Type Natriuretic Peptide 41 pg/mL (<100)
--- NOTE | 2023-02-03 05:15 | PC.NURSE ---
pt b/p 91/[address] Alcantara
[2023-02-03 05:37] LABS: PLT CLUMP 1; SCAN SMEAR FLAG 1
[2023-02-03 05:39] LABS: Basophils Percent Auto 0.3 % (0-2); Eosinophils Absolute Auto 0.3 X10*3/uL (0.0-0.4); Eosinophils Percent Auto 3.2 % (0-4); Hemoglobin 14.8 g/dl (14.0-18.0); Imm Gran Abs Auto 0.07 X10*3/uL (0.00-0.03); Imm Gran Pct Auto 0.8 % (0.0-0.4); Lymphocytes Absolute Auto 3.6 X10*3/uL (1.2-4.9); Lymphocytes Percent Auto 39.6 % (20-40); MANUAL DIFF FLAG SCAN; Mean Corpuscular HGB Conc 32.9 g/dl (31.0-36.0); Mean Corpuscular Hemoglobin 27.3 pg (27.0-33.0); Mean Corpuscular Volume 82.9 fL (80.0-98.0); Monocytes Absolute Auto 0.7 X10*3/uL (0.1-1.2); Monocytes Percent Auto 8.2 % (2-11); Neutrophils Absolute Auto 4.3 x10*3/uL (2.0-8.3); Neutrophils Percent Auto 47.9 % (45-73); Red Blood Count 5.43 X10*6/uL (4.60-5.80); Red Cell Distribution Width 14.8 % (11.0-16.0)
[2023-02-03 05:47] LABS: Platelet Count 128 X10*3/uL (160-400); White Blood Count 9.2 X10*3/uL (4.8-10.8)
--- NOTE | 2023-02-03 05:54 | PM.IMHP ---
History of Present Illness Date of Service: 02/03/23 Chief Complaint: Shortness of breath This is a 47-year-old male past medical history of DVT on Eliquis, comes into the hospital with complaints of shortness of breath and chest pain for 3 days. Patient describes the chest pain as pleuritic, worse with deep inspiration, in shortness of breath not associated with any cough or sputum production. Denies any fevers, no chills, feels that his legs are swollen bilaterally, otherwise denies any palpitations, no abdominal pain nausea or vomiting, no diarrhea constipation, no urinary symptoms and no extremity numbness weakness or tingling. He reports compliance with Eliquis, states that sometimes he is late to take his Eliquis during the day but never misses a day. On arrival to the ED patient hemodynamically stable with a heart rate in the 120s, otherwise satting 92% on room air Labs are significant for D-dimer of 1730, BNP of 41, troponin of 126, increased to 180 Patient started on heparin drip and will be admitted for further management Review of Systems Review of Systems: Yes all other systems are reviewed and are negative [facility] Medical History Clavicle fracture DVT (deep venous thrombosis) Forearm fracture Polysubstance abuse Social History Household Members: Family Household Members Other:: JEANNINE Housing: House Do you presently have visiting nurse or other home services: No Alcohol intake: never Patient Tobacco Use Status: Never used Tobacco Tobacco use type: Cigarette Cigarette Packs Per Day: 0.5 Cigarettes Per Day: 10.0 Years Smoked: 20 Smoked in Last 30 Days: Yes Second Hand Smoke Exposure: No Use of substances other than those prescribed or required for medical reasons: No Advance Directives: Yes Advance Directives on File: Yes Advance Directives Date on File: 10/17/21 service: No Current occupational status: unemployed Meds Allergies Allergy/AdvReac Type Severity Reaction Status Date / Time No Known Allergies Allergy Verified 08/01/22 10:40 [No Known Allergies*] Active Medications: Current Medications Acetaminophen (Acetaminophen 325 Mg Tablet) 650 mg PO Q6H PRN PRN Reason: Pain, Mild (Pain Scale 1-3) Docusate Sodium (Docusate Sodium 100 Mg Capsule) 100 mg PO DAILY PRN PRN Reason: Constipation Heparin Sodium (Porcine) (Heparin Sodium,Porcine 5,000 Unit/Ml Vial) 3,600 unit 40 unit/kg (3600 unit) IVPUSH PROTOCOL BOLUS PRN; Protocol PRN Reason: 40 unit/kg - Heparin Protocol Heparin Sodium (Porcine) (Heparin Sodium,Porcine 5,000 Unit/Ml Vial) 7,200 unit 80 unit/kg (7200 unit) IVPUSH PROTOCOL BOLUS PRN; Protocol PRN Reason: 80 unit/kg - Heparin Protocol Heparin Sodium/Sodium Chloride (Heparin Sodium,Porcine/1/2ns) 25,000 unit in 250 mls @ 0 mls/hr IVCONT .Q0M [facility]; Protocol Last Admin: 02/03/23 03:37 Dose: 14 units/kg/hr, 12.57 mls/hr Ondansetron HCl (Ondansetron Hcl 4 Mg/2 Ml Vial) 4 mg IVPUSH Q8H PRN PRN Reason: Nausea and Vomiting Sodium Chloride (0.9 % Sodium Chloride Flush 3 Ml Syringe) [facility] Medications Medication Instructions Recorded Confirmed Last Taken Type clonidine HCl 0.1 mg tablet 1 tab PO BEDTIME 10/16/21 10/16/21 10/15/21 History ibuprofen 400 mg tablet 1 tab PO TID PRN Pain (Scale Score 10/16/21 10/16/21 10/15/21 History 4-6) trazodone 100 mg tablet 150 mg PO BEDTIME 10/16/21 10/16/21 10/15/21 History quetiapine 50 mg tablet 50 mg PO BEDTIME PRN insomnia 10/17/22 Unknown History Physical Exam Vital Signs and Narrative: Vital Signs: Last Vital Signs Temp 98.0 F 02/03/23 04:59 Pulse 98 02/03/23 04:59 Resp 14 02/03/23 04:59 BP 91/60 02/03/23 04:59 Pulse Ox 98 02/03/23 04:59 O2 Del Method Room Air 02/03/23 04:59 BMI result Body Mass Index 31.0 Const: Other: Obese General: cooperative and no acute distress Orientation/consciousness: patient oriented x3 Eyes: General: appearance normal, both eyes and all related structures Pupils: Equal, round and reactive pupils present Resp: Effort & Inspection: normal respiratory effort, able to speak in complete sentences and abnormal respiratory pattern Auscultation: clear to auscultation bilaterally Cardio: Rate: regular rate Rhythm: regular rhythm GI: Palpation (GI): Soft to palpation Auscultation: normal bowel sounds Skin: General skin exam: no rashes or lesions noted Neuro: General: patient oriented x3 Cranial nerves: Yes Equal, round and reactive pupils present Cognition (Neuro): normal cognition Extrem: General: Yes normal to inspection and Yes no pedal edema Results Labs 02/02/23 23:12 02/03/23 05:18 Labs: Laboratory Results - last 24 hr 02/02/23 02/02/23 02/02/23 23:12 23:12 23:12 MCV 81.9 MCH 27.4 MCHC 33.4 RDW 14.6 Plt Count 127 L D MPV 10.9 Immature Gran % (Auto) 0.6 H Neut % (Auto) 61.7 Lymph % (Auto) 27.6 [place] % (Auto) 8.2 Eos % (Auto) 1.6 Baso % (Auto) 0.3 Lymph # (Auto) 2.4 [place] # (Auto) 0.7 Eos # (Auto) 0.1 Baso # (Auto) 0.0 Abs Immat Gran (auto) 0.05 H Absolute Neuts (auto) 5.4 Absolute Nucleated RBC 0.000 Nucleated RBC % (auto) 0.0 Smear Tech's Comments VERIFIED PT INR aPTT Heparin Protocol D-Dimer High Sensitivty 1730 Anion Gap 15 Estim Creat Clear Calc 82.7 Estimated GFR > 60 Random Glucose 146 H Calcium 9.0 Total Bilirubin AST ALT Alkaline Phosphatase Troponin I High Sens B-Natriuretic Peptide Total Protein Albumin 02/02/23 02/03/23 02/03/23 23:12 02:52 02:52 MCV MCH MCHC RDW Plt Count MPV Immature Gran % (Auto) Neut % (Auto) Lymph % (Auto) [place] % (Auto) Eos % (Auto) Baso % (Auto) Lymph # (Auto) [place] # (Auto) Eos # (Auto) Baso # (Auto) Abs Immat Gran (auto) Absolute Neuts (auto) Absolute Nucleated RBC Nucleated RBC % (auto) Smear Tech's Comments PT 11.5 INR 1.0 aPTT Heparin Protocol 28.9 L D-Dimer High Sensitivty Anion Gap Estim Creat Clear Calc Estimated GFR Random Glucose Calcium Total Bilirubin AST ALT Alkaline Phosphatase Troponin I High Sens 126.5 H* 182.7 H* B-Natriuretic Peptide Total Protein Albumin 02/03/23 02/03/23 02:52 05:18 MCV MCH MCHC RDW Plt Count MPV Immature Gran % (Auto) Neut % (Auto) Lymph % (Auto) [place] % (Auto) Eos % (Auto) Baso % (Auto) Lymph # (Auto) [place] # (Auto) Eos # (Auto) Baso # (Auto) Abs Immat Gran (auto) Absolute Neuts (auto) Absolute Nucleated RBC Nucleated RBC % (auto) Smear Tech's Comments PT INR aPTT Heparin Protocol D-Dimer High Sensitivty Anion Gap 12 Estim Creat Clear Calc 91.2 Estimated GFR > 60 Random Glucose 132 H Calcium 8.6 Total Bilirubin 0.6 AST 25 ALT 50 H Alkaline Phosphatase 82 Troponin I High Sens B-Natriuretic Peptide 41 Total Protein 6.7 Albumin 3.7 Imaging Radiologist's Impressions: Impressions Chest CTA 02/03/23 02:16 IMPRESSION: Bilateral pulmonary emboli as described above. Clot burden is moderate to large. Flattening of the interventricular septum suggests a degree of right heart strain. VTE: positive. This critical result was discussed with Dr. Savage on 02/03/2023 3:06 AM, and it was ascertained that the content and urgency of the report was understood at the time of direct communication. Assessment and Plan (1) Pulmonary embolism: Status: Acute Plan 47-year-old male past medical history of DVT on Eliquis comes into the hospital shortness of breath found to have PE # bilateral PE - normal BNP , reports compliance with Eliquis - at this time patient started heparin drip - vascular surgery consult for possible IVC filter - monitor respiratory status DVT prophylaxis: heparin subQ Time Spent With Patient Time: Total time managing care of this patient today ____ minutes. Quality Stroke Does the patient have a stroke diagnosis?: No VTE Prior VTE?: No VTE Risk Level:: Medical - low VTE Device Contraindication: Treatment Not Indicated VTE Drug Contraindication: N/A - Med Ordered
--- NOTE | 2023-02-03 06:09 | PC.NURSE ---
pt reported he wants to leave AMA, hospitalist in to speak with the pt, pt agreed to stay until he sees vascular surgery
--- NOTE | 2023-02-03 07:26 | PC.NURSE ---
PT IS A/O X 4 C/O SOB, NO AR NOTED SPEAKS IN FULL SENTENCES. INCREASE CHEST PAIN AND HEADACHE WITH INSPIRATION. LUNGS - SLIGHTLY DIMINISHED ALL HERNANDES. HEART SOUNDS REGULAR. HEPARIN DRIP AT 12.5ML/HR/14U/KG/HR. PT IS ADMITTED. PT AWARE OF PLAN OF CARE.
--- NOTE | 2023-02-03 07:37 | PC.NURSE ---
RN TO RN REPORT GIVEN TO KHADRA (IR) PT AWARE OF PLAN OF CARE FOR IVC FILTER PLACEMENT. PT STATES THAT HE LAST ATE BEFORE 1700 YESTERDAY AND LAST DRINK OF FLUIDS WAS THIS AM AT 0100. PT STATES HE HAS NERVE DAMAGE TO HIS NECK AND [place] [facility] [place], [facility]K WHERE HE A NERVE BLOCK.
--- NOTE | 2023-02-03 07:40 | PC.NURSE ---
PT STATED THAT HE WAS PLANNING ON LEAVING AMA, BUT HAS DECIDED AGAINST IT BECAUSE OF HOW HE IS FEELING.
--- NOTE | 2023-02-03 07:52 | PC.NURSE ---
RN TO RN REPORT GIVEN TO GONZÁLEZ AT [facility].
--- NOTE | 2023-02-03 08:58 | PM.CNGS ---
History of Present Illness Consult details Consult date: 02/03/23 Reason for consult: other (PE) Narrative: Complex 47-year-old gentleman presents for evaluation regarding pulmonary embolism. 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 He reports in March of last year he was admitted to [facility] with some history of PE. He underwent a declot procedure of what she is not very clear about but was in the hospital for approximately a week. After that he was started on Eliquis and has been very compliant taking that on a regular basis. He most recently was swimming with his children yesterday evening in the pool. He noticed acute onset of shortness of breath. He became quite concerned and was admitted. It was discovered that he had acute pulmonary embolisms. He was started on heparin. He now presents for IVC filter placement. Of note we did discuss family history. He denies any significant family history. He did note that his father of coronary artery disease after her bypass. He reports that he is not sure if this was venous in nature and could possibly are be arterial but he had sudden onset after CABG. Review of Systems Review of Systems: Yes all other systems are reviewed and are negative Constitutional: Constitutional: Reports no additional constitutional complaints ENT: Reports Normal hearing present Cardiovascular: Cardiovascular: Denies chest pain, Denies chest pain at rest, Denies chest pain with activity, Denies pedal edema and Reports dyspnea Respiratory: Respiratory: Reports cough and Reports dyspnea Gastrointestinal: Gastrointestinal: Denies abdominal pain Musculoskeletal: Musculoskeletal: Denies abnormal gait, Denies muscle cramps and Denies radiating pain into limb Integumentary/Breasts: Skin/Breast: Denies skin ulcer and Denies wounds Neurologic: Reports Normal hearing present and Denies abnormal gait Psychiatric: Psychiatric: Reports no additional psychiatric complaints [facility] Past Medical History Medical History Clavicle fracture DVT (deep venous thrombosis) Forearm fracture Polysubstance abuse Social History Social History Household Members: Family Household Members Other:: JEANNINE Housing: House Do you presently have visiting nurse or other home services: No Alcohol intake: never Patient Tobacco Use Status: Never used Tobacco Tobacco use type: Cigarette Cigarette Packs Per Day: 0.5 Cigarettes Per Day: 10.0 Years Smoked: 20 Second Hand Smoke Exposure: No Advance Directives Date on File: 10/17/21 service: No Current occupational status: unemployed Meds Allergies Allergy/AdvReac Type Severity Reaction Status Date / Time No Known Allergies Allergy Verified 08/01/22 10:40 [No Known Allergies*] Active Medications: Current Medications Acetaminophen (Acetaminophen 325 Mg Tablet) 650 mg PO Q6H PRN PRN Reason: Pain, Mild (Pain Scale 1-3) Last Admin: 02/03/23 07:44 Dose: 650 mg Docusate Sodium (Docusate Sodium 100 Mg Capsule) 100 mg PO DAILY PRN PRN Reason: Constipation Heparin Sodium (Porcine) (Heparin Sodium,Porcine 5,000 Unit/Ml Vial) 3,600 unit 40 unit/kg (3600 unit) IVPUSH PROTOCOL BOLUS PRN; Protocol PRN Reason: 40 unit/kg - Heparin Protocol Heparin Sodium (Porcine) (Heparin Sodium,Porcine 5,000 Unit/Ml Vial) 7,200 unit 80 unit/kg (7200 unit) IVPUSH PROTOCOL BOLUS PRN; Protocol PRN Reason: 80 unit/kg - Heparin Protocol Heparin Sodium/Sodium Chloride (Heparin Sodium,Porcine/1/2ns) 25,000 unit in 250 mls @ 0 mls/hr IVCONT .Q0M [facility], [facility]; Protocol Last Admin: 02/03/23 03:37 Dose: 14 units/kg/hr, 12.57 mls/hr Ondansetron HCl (Ondansetron Hcl 4 Mg/2 Ml Vial) 4 mg IVPUSH Q8H PRN PRN Reason: Nausea and Vomiting Sodium Chloride (0.9 % Sodium Chloride Flush 3 Ml Syringe) [facility] Last Admin: 02/03/23 07:31 Dose: 3 ml Home Medications Medication Instructions Recorded Confirmed Last Taken Type clonidine HCl 0.1 mg tablet 1 tab PO BEDTIME 10/16/21 02/03/23 10/15/21 History ibuprofen 400 mg tablet 1 tab PO TID PRN Pain (Scale Score 10/16/21 02/03/23 10/15/21 History 4-6) trazodone 100 mg tablet 150 mg PO BEDTIME 10/16/21 02/03/23 10/15/21 History quetiapine 50 mg tablet 50 mg PO BEDTIME PRN insomnia 10/17/22 02/03/23 Unknown History apixaban 5 mg tablet (Eliquis) 5 mg PO BID 02/03/23 02/03/23 02/02/23 History Physical Exam Vital Signs: Vital Signs: Last Vital Signs Temp 98.1 F 02/03/23 08:02 Pulse 93 02/03/23 08:02 Resp 13 02/03/23 08:02 BP 112/70 02/03/23 08:02 Pulse Ox 96 02/03/23 08:02 O2 Del Method Nasal Cannula 02/03/23 08:02 O2 Flow Rate 2 02/03/23 08:02 BMI result Body Mass Index 31.0 Const: General: cooperative, healthy appearing and comfortable Orientation/consciousness: oriented to person, oriented to place and oriented to time HEENT: Head: Yes normal to inspection Neck: Neck: Yes normal visual inspection Carotids: no bruits Chest: Chest palpation & inspection: normal inspection of the chest Resp: Effort & Inspection: normal respiratory effort and able to speak in complete sentences Auscultation: clear to auscultation bilaterally, no crackles, no rales, no rhonchi and no wheezes Cardio: Rate: regular rate Rhythm: regular rhythm Heart sounds: S1 normal heart sound present and S2 normal heart sound present Bruits: no carotid bruits Peripheral pulses: Peripheral pulses 2+ throughout GI: Inspection: Yes normal to inspection Skin: Wounds: no wounds Hair: normal Neuro: General: oriented to person, oriented to place and oriented to time Cranial nerves: Yes CN's II-XII intact bilaterally and Yes Normal hearing present Cognition (Neuro): normal cognition Motor exam (neuro): 5/5 motor strength present throughout Extrem: Other: venous exam: No significant superficial varicosities or spider telangiectasias, minimal edema General: No clubbing, No cyanosis and No edema Psych: Appearance: grossly normal Mental Status: mental status grossly normal Speech and movement: Normal speech and movement present Results Labs 02/03/23 05:18 02/03/23 05:18 Labs: Abnormal lab results 02/02/23 02/02/23 02/02/23 Range/Units 23:12 23:12 23:12 Plt Count 127 L D (160-400) X10*3/uL Immature Gran % (Auto) 0.6 H (0.0-0.4) % Abs Immat Gran (auto) 0.05 H (0.00-0.03) X10*3/uL aPTT Heparin Protocol (53-77.9) SEC Chloride 109 H (96-108) mmol/L Carbon Dioxide 19 L (22-29) mmol/L BUN 22 H (9-16) mg/dL Random Glucose 146 H (60-115) mg/dL ALT (0-40) U/L Troponin I High Sens 126.5 H* (<3.5-35.0) ng/L 02/03/23 02/03/23 02/03/23 Range/Units 02:52 02:52 05:18 Plt Count 128 L (160-400) X10*3/uL Immature Gran % (Auto) 0.8 H (0.0-0.4) % Abs Immat Gran (auto) 0.07 H (0.00-0.03) X10*3/uL aPTT Heparin Protocol 28.9 L (53-77.9) SEC Chloride (96-108) mmol/L Carbon Dioxide (22-29) mmol/L BUN (9-16) mg/dL Random Glucose (60-115) mg/dL ALT (0-40) U/L Troponin I High Sens 182.7 H* (<3.5-35.0) ng/L 02/03/23 02/03/23 Range/Units 05:18 05:18 Plt Count (160-400) X10*3/uL Immature Gran % (Auto) (0.0-0.4) % Abs Immat Gran (auto) (0.00-0.03) X10*3/uL aPTT Heparin Protocol (53-77.9) SEC Chloride (96-108) mmol/L Carbon Dioxide 21 L (22-29) mmol/L BUN 21 H (9-16) mg/dL Random Glucose 132 H (60-115) mg/dL ALT 50 H (0-40) U/L Troponin I High Sens 164.0 H* (<3.5-35.0) ng/L Short CBC 02/02/23 02/03/23 Range/Units 23:12 05:18 WBC 8.8 9.2 (4.8-10.8) X10*3/uL Hgb 15.3 14.8 (14.0-18.0) g/dl Hct 45.8 45.0 (42.0-52.0) % Plt Count 127 L D 128 L (160-400) X10*3/uL BMP 02/02/23 02/03/23 23:12 05:18 Sodium 139 137 Potassium 4.2 4.0 Chloride 109 H 108 Carbon Dioxide 19 L 21 L BUN 22 H 21 H Creatinine 1.18 1.07 Calcium 9.0 8.6 Liver Function 02/03/23 Range/Units 05:18 Total Bilirubin 0.6 (0.0-1.0) mg/dL AST 25 (5-37) U/L ALT 50 H (0-40) U/L Alkaline Phosphatase 82 (39-117) U/L Albumin 3.7 (3.5-5.0) g/dL All other labs normal. Imaging CT scan - chest: report reviewed, image reviewed and other (Pulmonary embolism noted) Assessment and Plan (1) Pulmonary embolism: Status: Acute Plan In short patient has recurrent pulmonary embolism. This appears to be a failure in anticoagulation as the patient has been compliant with Eliquis. We will place an IVC filter. Risks benefits complications were discussed in detail with the patient patient understood and consented. Thank you for allowing us to assist in his care. Time Spent With Patient Time: Total time managing care of this patient today ____ minutes. Procedures Date of Service Date of Service: 02/03/23
--- NOTE | 2023-02-03 09:12 | PC.NURSE ---
rn to rn report given to keith on imc unit.
[2023-02-03] MEDS: Heparin Sodium,Porcine 5,000 UNIT/ML VIAL 3600 UNIT IVPUSH (09:23)
--- NOTE | 2023-02-03 09:24 | PC.NURSE ---
ptt HD 50.6, heparin gtt rate changed to 16 units/kg/hr and 40units/kg bolus given. ptt HD lab draw ordered per protocal in 6hrs. Report given to ELIZABETH Zamora RN and ELIZABETH Chandler RN.
--- NOTE | 2023-02-03 10:51 | W.PM.OPN ---
Operative Note Operative Note Date of Service: 02/03/23 Narrative: Angiogram report from [facility] Preoperative diagnosis: Recurrent pulmonary embolism Postoperative diagnosis: Same Procedure: 1. Ultrasound-guided right common femoral vein access 2. Inferior vena cavogram 3. Placement of inferior vena cava filter Surgeon:Albert Arce M.D., FACS, RPVI Form Maker Plaster:None Anesthesia: Local with moderate conscious sedation. Total intraservice moderate sedation time was 24 minutes. I monitored the patient's level of consciousness and physiologic status continuously throughout the procedure. Specimens:none Drains:none Estimated blood loss: Less than 10 ml Implant: Bard Noble retrievable vena cava filter Indications: 47-year-old gentleman with a prior history of DVT. Apparently he had some sort of thrombo lytic procedure done March of [address] [facility]. He has been on Eliquis since that time. He has been compliant in yesterday had a recurrent pulmonary embolism. He now presents for IVC filter placement for failure of anticoagulation. The patient has signed the informed consent after reviewing risks, complications, benefits, and alternatives previously discussed with the patient. The patient was given the opportunity to ask any additional questions or voice any concerns. All questions were answered to the patient's satisfaction. Procedure in detail: Patient was brought to the angiography suite prior to which a time-out was called for patient identification and site verification. Bilateral groins were prepped and draped in the standard surgical fashion. Under ultrasound guidance right common femoral vein was punctured with micro puncture needle and wire. Subsequently a precision 5 Czech sheath was then placed. Bentson wire was advanced to the level of the vena cava. Vena cavogram was then undertaken through the 5 Czech sheath. This was a baseline study to define the variant anatomy, caval size, location and number of renal veins, and to evaluate for ileo caval thrombus. Under direct fluoroscopic guidance we exchanged out the 5 Czech sheath for the Bard Noble sheath. We brought the filter into position. This was then subsequently deployed. The inner cannula was then removed. Through the sheath a hand injection was performed to assess filter position. Once this was accomplished the sheath was then removed, and hemostasis was achieved with 10 minutes of direct compression. No immediate complications occurred and the patient was returned to the recovery suite with no complications Interpretation of films: 1. Ultrasound demonstrates appropriate femoral vein puncture. Image of which was saved. 2. There was no ileal caval thrombus noted 3. There are single renal veins bilaterally and the IVC is normal in caliber. There is no aberrant anatomy. 4. The filter was deployed appropriately and position below the lowest renal vein. Conclusion: 1. Successful placement of Bard Anusha IVC filter 2. Anticoagulation status: Resume regular anticoagulation as indicated 4 hours post filter placement This note is constructed using voice recognition software. While every effort has been made to ensure accuracy, route jumper errors may have been included. Thank you for allowing me to participate in the care of your patient. Yours sincerely, Albert Arce MD, FACS, R.P.V.I.
--- NOTE | 2023-02-03 10:53 | PM.EVENT ---
Event Note Date of Service: 02/03/23 Event Note: Status post IVC filter placement can resume for anticoagulation 4 hours after procedure. Stable from my perspective for discharge. Can follow-up as an outpatient with [facility] who did the original thrombolysis procedure. Time Spent With Patient Time: Total time managing care of this patient today ____ minutes.
--- NOTE | 2023-02-03 14:06 | PM.DS ---
DS: Providers Provider Date of Service: 02/03/23 Date of admission: 02/03/23 04:40 Primary care physician: Pramod Brandon MD Consults: 02/03/23 04:40 Consult to Vascular Surgery Routine Consulting Provider: [facility] Reason for consultation: romuloaminata chestervenecia, PE Has provider been notified: No DS: Diagnosis Discharge Diagnosis (1) Pulmonary embolism: Status: Acute DS: Summary Hospital Course Hospital Course: 47-year-old male past medical history of DVT on Eliquis, comes into the hospital with complaints of shortness of breath and chest pain for 3 days.? Patient describes the chest pain as pleuritic, worse with deep inspiration, in shortness of breath not associated with any cough or sputum production.? Denies any fevers, no chills, feels that his legs are swollen bilaterally, otherwise denies any palpitations, no abdominal pain nausea or vomiting, no diarrhea constipation, no urinary symptoms and no extremity numbness weakness or tingling.?He reports compliance with Eliquis, states that sometimes he is late to take his Eliquis during the day but never misses a day.? On arrival to the ED patient hemodynamically stable with a heart rate in the 120s, otherwise satting 92% on room air Labs are significant for D-dimer of 1730, BNP of 41, troponin of 126, increased to 180 CTA in emergency room demonstrated bilateral pulmonary emboli with clot burden moderate. heparin drip started hospital course patient taken directly from the ER to the OR where he underwent an IVC filter by vascular surgery. From vascular standpoint he is medically acceptable for discharge 4 hours after procedure. He will continue asthma Eliquis and follow-up with his vascular surgeons at [facility] Time Spent with Patient Time attestation: Total time managing care of this patient today ____ minutes. Discharge coordination time: Greater than 30 minutes Quality: Safe Use of Opioids Does Pt have an Active Cancer Diagnosis on the Problem List?: No Quality: Stroke Does the patient have a stroke diagnosis?: No Physical Exam Vital Signs: Vital Signs: Last Vital Signs Temp 97.5 F 02/03/23 12:00 Pulse 95 02/03/23 12:00 Resp 20 02/03/23 12:00 BP 111/81 02/03/23 12:00 Pulse Ox 95 02/03/23 12:00 O2 Del Method Room Air 07/03/23 12:00 O2 Flow Rate 2 02/03/23 11:46 BMI result Body Mass Index 31.0 Const: Other: Obese General: cooperative and no acute distress Orientation/consciousness: patient oriented x3 Eyes: General: appearance normal, both eyes and all related structures Pupils: Equal, round and reactive pupils present Resp: Effort & Inspection: normal respiratory effort, able to speak in complete sentences and abnormal respiratory pattern Auscultation: clear to auscultation bilaterally Cardio: Rate: regular rate Rhythm: regular rhythm GI: Palpation (GI): Soft to palpation Auscultation: normal bowel sounds Skin: General skin exam: no rashes or lesions noted Neuro: General: patient oriented x3 Cranial nerves: Yes Equal, round and reactive pupils present Cognition (Neuro): normal cognition Extrem: General: Yes normal to inspection and Yes no pedal edema DS: Data Data Completed and Pending Completed studies during hospitalization [Text1]: Procedures Removal of Internal Fixation Device from Left Clavicle, Open Approach (10/16/21) Reposition Left Clavicle with Internal Fixation Device, Open Approach (10/16/21) Resection of Appendix, Percutaneous Endoscopic Approach (04/26/21) Labs on day of discharge: Laboratory Results - last 24 hr 02/02/23 02/02/23 02/02/23 23:12 23:12 23:12 WBC 8.8 RBC 5.59 Hgb 15.3 Hct 45.8 MCV 81.9 MCH 27.4 MCHC 33.4 RDW 14.6 Plt Count 127 L D MPV 10.9 Immature Gran % (Auto) 0.6 H Neut % (Auto) 61.7 Lymph % (Auto) 27.6 Saunders % (Auto) 8.2 Eos % (Auto) 1.6 Baso % (Auto) 0.3 Lymph # (Auto) 2.4 Saunders # (Auto) 0.7 Eos # (Auto) 0.1 Baso # (Auto) 0.0 Abs Immat Gran (auto) 0.05 H Absolute Neuts (auto) 5.4 Absolute Nucleated RBC 0.000 Nucleated RBC % (auto) 0.0 Smear Tech's Comments VERIFIED PT INR aPTT Heparin Protocol D-Dimer High Sensitivty 1730 Sodium 139 Potassium 4.2 Chloride 109 H Carbon Dioxide 19 L Anion Gap 15 BUN 22 H Creatinine 1.18 Estim Creat Clear Calc 82.7 Estimated GFR > 60 Random Glucose 146 H Calcium 9.0 Total Bilirubin AST ALT Alkaline Phosphatase Troponin I High Sens B-Natriuretic Peptide Total Protein Albumin 02/02/23 02/03/23 02/03/23 23:12 02:52 02:52 WBC RBC Hgb Hct MCV MCH MCHC RDW Plt Count MPV Immature Gran % (Auto) Neut % (Auto) Lymph % (Auto) Saunders % (Auto) Eos % (Auto) Baso % (Auto) Lymph # (Auto) Saunders # (Auto) Eos # (Auto) Baso # (Auto) Abs Immat Gran (auto) Absolute Neuts (auto) Absolute Nucleated RBC Nucleated RBC % (auto) Smear Tech's Comments PT 11.5 INR 1.0 aPTT Heparin Protocol 28.9 L D-Dimer High Sensitivty Sodium Potassium Chloride Carbon Dioxide Anion Gap BUN Creatinine Estim Creat Clear Calc Estimated GFR Random Glucose Calcium Total Bilirubin AST ALT Alkaline Phosphatase Troponin I High Sens 126.5 H* 182.7 H* B-Natriuretic Peptide Total Protein Albumin 02/03/23 02/03/23 02/03/23 02:52 05:18 05:18 WBC 9.2 RBC 5.43 Hgb 14.8 Hct 45.0 MCV 82.9 MCH 27.3 MCHC 32.9 RDW 14.8 Plt Count 128 L MPV 11.0 Immature Gran % (Auto) 0.8 H Neut % (Auto) 47.9 Lymph % (Auto) 39.6 Saunders % (Auto) 8.2 Eos % (Auto) 3.2 Baso % (Auto) 0.3 Lymph # (Auto) 3.6 Saunders # (Auto) 0.7 Eos # (Auto) 0.3 Baso # (Auto) 0.0 Abs Immat Gran (auto) 0.07 H Absolute Neuts (auto) 4.3 Absolute Nucleated RBC 0.000 Nucleated RBC % (auto) 0.0 Smear Tech's Comments PT INR aPTT Heparin Protocol D-Dimer High Sensitivty Sodium 137 Potassium 4.0 Chloride 108 Carbon Dioxide 21 L Anion Gap 12 BUN 21 H Creatinine 1.07 Estim Creat Clear Calc 91.2 Estimated GFR > 60 Random Glucose 132 H Calcium 8.6 Total Bilirubin 0.6 AST 25 ALT 50 H Alkaline Phosphatase 82 Troponin I High Sens B-Natriuretic Peptide 41 Total Protein 6.7 Albumin 3.7 02/03/23 02/03/23 05:18 08:39 WBC RBC Hgb Hct MCV MCH MCHC RDW Plt Count MPV Immature Gran % (Auto) Neut % (Auto) Lymph % (Auto) Saunders % (Auto) Eos % (Auto) Baso % (Auto) Lymph # (Auto) Saunders # (Auto) Eos # (Auto) Baso # (Auto) Abs Immat Gran (auto) Absolute Neuts (auto) Absolute Nucleated RBC Nucleated RBC % (auto) Smear Tech's Comments PT INR aPTT Heparin Protocol 50.6 L D D-Dimer High Sensitivty Sodium Potassium Chloride Carbon Dioxide Anion Gap BUN Creatinine Estim Creat Clear Calc Estimated GFR Random Glucose Calcium Total Bilirubin AST ALT Alkaline Phosphatase Troponin I High Sens 164.0 H* B-Natriuretic Peptide Total Protein Albumin Discharge Plan Discharge Anticipated Discharge Date/Time: 02/03/23 14:04 Patient Disposition: Home, Self-Care Discharge Diagnosis: pulmonary embolism Referrals: Pramod Brandon MD [Primary Care Provider] - 1 Week Discharge Medications: Continued acetaminophen [Tylenol Extra Strength] 500 mg tablet 500 mg PO Q4-6H PRN (Reason: fever or pain) 30 Days Qty: 168 0RF clonidine HCl 0.1 mg tablet 1 tab PO BEDTIME trazodone 100 mg tablet 150 mg PO BEDTIME ibuprofen 400 mg tablet 1 tab PO TID PRN (Reason: Pain (Scale Score 4-6)) Eliquis 5 mg tablet 5 mg PO BID quetiapine 50 mg tablet 50 mg PO BEDTIME PRN (Reason: insomnia) Discharge Orders: Discharge Order (Routine); Ordered 02/03/23 Ordered By: Rohit Beckham Diet: Advance to usual diet Activity on Discharge: As tolerated Stand Alone Forms: Patient Portal Discharge page Care Plan Goals: take all medicines your taking prior to this hospitalization Health Concerns: continue with Eliquis twice daily Plan of Treatment: follow-up with vascular surgeons at [facility] Assessment: see discharge summary
--- NOTE | 2023-02-03 15:41 | MHC.CM.PN ---
ARMAND 02/03. Pt on observation with PE. Pt lives at home with his ex-partner and child, is independent/self-care. Pt is medically cleared for D/C and his mother will transport him home. D/C plan to return home self-care. PCPL Pramod Brandon
--- NOTE | 2023-02-03 15:46 | MHC.CM.PN ---
ARMAND 02/03. Pt on observation with PE. Pt lives at home with his ex-partner and child, is independent/self-care. HCP on file. Pt is medically cleared for D/C and his mother will transport him home. D/C plan to return home self-care. PCP: Pramod Brandon
== END 2023-02-03 16:35 | disposition home or self-care (01) ==
LOC: HO.ED 02-03 02:47 → HO.EDOVER 02-03 04:50 → HO.IMC 02-03 07:34
PROVIDERS: Surgery Vascular Surgery; Admitting Provider Internal Medicine; Emergency Provider Emergency Medicine; PCP Internal Medicine; Visit Provider Hospitalist
PROC: (CPT 37191; principal; 2023-02-03 09:00)
DX: I26.99 Other pulmonary embolism without acute cor pulmonale (principal); R06.00 Dyspnea, unspecified; R06.02 Shortness of breath; F19.10 Other psychoactive substance abuse, uncomplicated; F17.210 Nicotine dependence, cigarettes, uncomplicated; Z86.718 Personal history of other venous thrombosis and embolism; Z86.711 Personal history of pulmonary embolism; Z79.01 Long term (current) use of anticoagulants; Z79.899 Other long term (current) drug therapy
CPT/HCPCS: 37191; 36415; 71275; 80048; 80053; 83880; 84484; 85025; 85379; 85610; 85730; 93005; 93306; 96365; 96366; 96375; 99152; 99153; 99222; 99285; C1769; C1880; C1894; J1643; Q9957; Q9967

== ENCOUNTER 2023-06-12 14:00 | Outpatient (AMB) | payer OTHER, SELFPAY ==
--- NOTE | 2023-06-12 14:04 | A.OFFVIS_ITS ---
Intake Intake Visit Reasons: OV- left shoulder to discuss surgery Intake Note: Ethan is a 47 year old right hand dominant male who presents today who presents today for a follow up appointment of left clavicle, s/p Left Clavicle non union ORIF 10/17/21. Patient reports that he is having a painful popping and clicking sensation at the top of the shoulder, this happens lateral movements of the arm. He would like to move forward with surgical intervention. Allergies No Known Allergies [No Known Allergies*] Allergy (Verified 08/01/22 10:40) HPI OV- left shoulder to discuss surgery HPI Details Ethan is a 48 year old man who presents ~20 months S/P left clavical ORIF, for a non-union fracture. He trialed a bone stimulator for several months previously and quit smoking this summer. He says he has tried or or two smokes since he quit due to his pain, but he says this has been infrequent. He continues to complain of a painful popping and clicking in his shoulder, which occurs mainly with lateral arm movements. He says this pain makes it difficult to sleep, and he is still somewhat limited in his ROM. Surgery was discussed at his last appointment on 01/17/23, and he would like to discuss surgery again today. He has a recent hx of bilateral PE on 02/03/23. Hx of DVT and was on Eliquis at the time. He has since double his daily PO Eliquis dosage. He says he had a very poor experience at [facility] and has transferred his care to [facility]. [facility] Medical History Clavicle fracture DVT (deep venous thrombosis) Forearm fracture Polysubstance abuse Social History Household Members: Family Household Members Other:: MOM-JENN Housing: House Do you presently have visiting nurse or other home services: No Alcohol intake: never Patient Tobacco Use Status: Never used Tobacco Tobacco use type: Cigarette Cigarette Packs Per Day: 0.5 Cigarettes Per Day: 10.0 Years Smoked: 20 Second Hand Smoke Exposure: No Advance Directives Date on File: 10/17/21 service: No Current occupational status: unemployed Review of Systems Const All systems reviewed & are unremarkable except as noted in HPI and below Physical Exam Const General: no acute distress, alert and awake Orientation/consciousness: patient oriented x3 HEENT Head: Yes normocephalic and Yes atraumatic Eyes EOM: EOMs intact bilaterally Resp Effort & Inspection: normal respiratory effort and able to speak in complete sentences Cardio Jugular venous distension: no JVD Skin General skin exam: turgor normal Rashes: no rashes Neuro General: patient oriented x3 Extrem Other: ttp over lateral clavicle prominent hardware inc c/d/i Psych Appearance: grossly normal Affect: normal affect Attitude: cooperative Assessment & Plan Assessment & Plan (1) Fracture of left clavicle with nonunion: Code(s): S42.002K - Fracture of unspecified part of left clavicle, subsequent encounter for fracture with nonunion Plan: This is a 48 year old man with a persistent left clavicle nonunion, S/P clavicle ORIF, DOS: 10/17/21. He triale a bone stimulator for several months earlier this year and he has quit smoking, though reports having an occasional smoke since due to his pain. He has pain with daily activity, worse with motion and at night, and he feels limited in his ADLs. I discussed treatment options. This has been long-standing. He actually came to see me when the hardware failed but the non-union has been present for several years at least. I recommend ORIF with iliac crest bone graft. I discussed the risks, benefits, and alternatives including, but not limited to, the risk of pain, infection, stiffness, need for further surgery as well as potential medical complications such as blood clots, pulmonary embolism and cardiac complications. I discussed the recovery timeline and process as well as the importance of PT. Ethan is a good candidate for this surgery, and he wishes to proceed with this decision. He will speak with Shelia to schedule this procedure. He has a hx of DVT and recently had Pulmonary embolisms. He is on Eliquis. He will need clearance prior to surgery. He would like to have this done sometime in August. (2) Pulmonary embolism: Code(s): I26.99 - Other pulmonary embolism without acute cor pulmonale Plan Scribed for Davon Lin MD by Eric Solorio, medical office asst, on 06/12/23 at 2:20 PM, EST. Coding Level of Care Code Est Pt Level 4 (46692) Diagnoses Fracture of left clavicle with nonunion S42.002K Pulmonary embolism I26.99
== END 2023-06-12 14:52 | disposition home or self-care (01) ==
PROVIDERS: PCP Internal Medicine; Visit Provider Orthopaedic Surgery
DX: S42.002K Fracture of unspecified part of left clavicle, subsequent encounter for fracture with nonunion (principal); I26.99 Other pulmonary embolism without acute cor pulmonale
CPT/HCPCS: 99214

== ENCOUNTER → 2023-06-12 14:00 | Outpatient (BNVA) | payer OTHER, SELFPAY | PROVIDERS: PCP Internal Medicine; Visit Provider Orthopaedic Surgery | DX: S42.002K Fracture of unspecified part of left clavicle, subsequent encounter for fracture with nonunion (principal); I26.99 Other pulmonary embolism without acute cor pulmonale | CPT/HCPCS: 99212 ==

== ENCOUNTER 2023-08-21 09:30 | Outpatient (AMB) | payer OTHER, SELFPAY ==
--- NOTE | 2023-08-21 09:32 | A.OFFVIS_ITS ---
Intake Vital Signs 08/21/23 09:35 Height 5 ft 7 in Weight 197 lb BMI 30.9 Handedness Right Intake Visit Reasons: Pre Op L clavicle ORIF 08/27/23 NE Intake Note: Ethan is a 48 year old right hand dominant male who presents today for a pre op appointment for his left clavicle ORIF 08/27/23 NE. Allergies No Known Allergies [No Known Allergies*] Allergy (Verified 08/21/23 09:35) HPI Pre Op L clavicle ORIF 08/27/23 NE HPI Details 48-year-old male who presents in the off ice today for his preoperative history and physical exam prior to a left clavicle ORIF to be performed on 08/27/[address] Davon Lin. Patient has no known allergy history. Patient is currently taking, as follows: -Acetaminophen 500 mg PO Q4-6H PRN -Clonidine HCI 0.1 mg PO bedtime -Quetiapine 50 mg PO bedtime PRN -Trazodone 100 mg PO bedtime PRN -Warfarin 12.5 mg PO QPM Patient has a medical history, as follows: -Pulmonary embolism -PTSD (post-traumatic stress disorder) -Pre-diabetes -Migraine -Depression -Rhabdomyolysis; 2209-[id number]-vieza nt states stroke due to overdose-blood clots resulted afterwards -Polysubstance abuse -DVT (deep venous thrombosis) Patient has a surgical history, as follows: -History of surgery; 2021-catheter direc harvey thrombolysis of right femoral DVT & angioplasty left common femoral vein -History of insertion of IVC (inferior v laura caval) filter; 02/2023 -History of appendectomy -History of left clavicle ORIF 2018 -History of left forearm ORIF 2013 -History of menisectomy of right knee; 2 018 Patient has a social history, as follows: - Former smoker; Cigarettes, 0.5 packs p er day, quit 06/2023. [facility] Medical History (Updated 08/08/23 @ 12:13 by Ashley Amezquita RN) Back pain PTSD (post-traumatic stress disorder) Pre-diabetes Migraine Depression Rhabdomyolysis Chest pain Lumbar radiculopathy Pulmonary embolism Polysubstance abuse DVT (deep venous thrombosis) Surgical History (Updated 08/07/23 @ 11:12 by Ashley Amezquita RN) History of surgery S/P insertion of IVC (inferior vena caval) filter Hx of appendectomy History of open reduction and internal fixation (ORIF) procedure Hx of meniscectomy of right knee Social History Household Members: Family Household Members Other:: JEANNINE Housing: House Are you a primary customer care associate to a significant other at home: No Do you presently have visiting nurse or other home services: No Alcohol intake: never Patient Tobacco Use Status: Former Tobacco user Quit Date: 06/2023 Tobacco use type: Cigarette Cigarette Packs Per Day: 0.5 Cigarettes Per Day: 10.0 Years Smoked: 30 Second Hand Smoke Exposure: No Advance Directives Date on File: 10/17/21 service: No Current occupational status: unemployed Review of Systems Const All systems reviewed & are unremarkable except as noted in HPI and below Physical Exam Vital Signs: BMI result Body Mass Index 30.9 Const General: cooperative, healthy appearing, comfortable, no acute distress, well developed, alert and awake Orientation/consciousness: patient oriented x3 HEENT Head: Yes normal to inspection, Yes normocephalic and Yes atraumatic Eyes General: appearance normal, both eyes and all related structures EOM: EOMs intact bilaterally Neck Neck: Yes normal visual inspection and Yes no lymphadenopathy Resp Effort & Inspection: normal respiratory effort and able to speak in complete sentences Cardio Jugular venous distension: no JVD Rate: regular rate Peripheral pulses: Peripheral pulses 2+ throughout GI Inspection: Yes normal to inspection Palpation (GI): Soft to palpation Skin General skin exam: no rashes or lesions noted Rashes: no rashes Neuro General: patient oriented x3 Extrem Other: ttp over lateral clavicle prominent hardware inc c/d/i Psych Appearance: grossly normal Mental Status: mental status grossly normal Affect: normal affect Attitude: cooperative Assessment & Plan Assessment & Plan (1) Fracture of left clavicle with nonunion: Code(s): S42.002K - Fracture of unspecified part of left clavicle, subsequent encounter for fracture with nonunion (2) Pulmonary embolism: Code(s): I26.99 - Other pulmonary embolism without acute cor pulmonale Plan Mr. Fontenot is a 48-year-old male who presents in the office today for his preoperative history and physical exam prior to a left clavicle ORIF to be performed on 08/27/[address] Davon Lin. Patient has no known allergy history. Patient is currently taking, as follows: -Acetaminophen 500 mg PO Q4-6H PRN -Clonidine HCI 0.1 mg PO bedtime -Quetiapine 50 mg PO bedtime PRN -Trazodone 100 mg PO bedtime PRN -Warfarin 12.5 mg PO QPM Patient has a medical history, as follows: -Pulmonary embolism -PTSD (post-traumatic stress disorder) -Pre-diabetes -Migraine -Depression -Rhabdomyolysis; [id number]-[id number]-sbewpws states stroke due to overdose-blood clots resulted afterwards -Polysubstance abuse -DVT (deep venous thrombosis) Patient has a surgical history, as follows: -History of surgery; 2021-catheter directed thrombolysis of right femoral DVT & angioplasty left common femoral vein -History of insertion of IVC (inferior vena caval) filter; 02/2023 -History of appendectomy -History of left clavicle ORIF 2018 -History of left forearm ORIF 2013 -History of menisectomy of right knee; 2017 Patient has a social history, as follows: - Former smoker; Cigarettes, 0.5 packs per day, quit 06/2023. I discussed in detail the procedure and what to expect pre and post operatively. We discussed the risks, benefits and alternatives to the surgery as well as the rehabilitation course. The risks; which include, but are not limited to infection, bleeding, nerve injury, ongoing pain, swelling, and stiffness, perioperative risk of injury to bones and soft tissues, and blood clots. Patient has a history of poor pain managemet and may need to be admitted for observation after the procedure for pain control. I have answered all questions and with their understanding they have consented to move forward with a left clavicle ORIF to be performed on 08/27/[address] Davon Lin. Follow up will be at the post operative appointment on 09/02/2023 at 1:30 pm, or sooner if needed. Patient Instructions: Scribed for Yuli Sung PA-C by Dilma Solano medical engineer, on 08/21/2023 at 9:30 am, EST. Coding Level of Care Code Global (47249) Diagnoses Fracture of left clavicle with nonunion S42.002K Pulmonary embolism I26.99
[2023-08-21 09:35] VITALS: BMI 30.9
== END 2023-08-21 09:46 | disposition home or self-care (01) ==
PROVIDERS: PCP Internal Medicine; Visit Provider Physician Assistant
DX: S42.002K Fracture of unspecified part of left clavicle, subsequent encounter for fracture with nonunion (principal); I26.99 Other pulmonary embolism without acute cor pulmonale
CPT/HCPCS: 99024

== ENCOUNTER → 2023-08-21 09:30 | Outpatient (BNVA) | payer OTHER, SELFPAY | PROVIDERS: PCP Internal Medicine; Visit Provider Physician Assistant | DX: Z01.818 Encounter for other preprocedural examination (principal); S42.002K Fracture of unspecified part of left clavicle, subsequent encounter for fracture with nonunion; I26.99 Other pulmonary embolism without acute cor pulmonale | CPT/HCPCS: 99212 ==

== ENCOUNTER 2023-08-27 10:07 | Day surgery (SDC) | payer OTHER, SELFPAY ==
[2023-08-08 12:22] VITALS: BP 129/87; PULSE 82; RESP 20; O2SAT 97; BMI 37.1
--- NOTE | 2023-08-08 12:36 | P.CONAN_ITS ---
Documented by User: Leslie Woody NP 08/26/23 12:19 HPI - Anesthesia Eval Consult details Narrative: 48yo M for Left Clavicle ORIF, 08/27/23 s/p same 10/2021 GA-ETT 8 Medically cleared. Pending stress testing (to be done 08/26/23, but not strictly need it preop) Chest cold last week, but resolved No CP/SOB with minimal activity Warfarin and IVC filter for hx PE - last 02/2023 (multiple clots started after COVID. See med clearance note for full vascular hx.) Knee Replacement Total PMFSH Active Problems Active Problems: All Active Problems (Updated 08/08/23 @ 12:13 by Ashley Amezquita RN) Pulmonary embolism (Acute) Lumbar radiculopathy (Acute) Fracture of left clavicle with nonunion (Acute) COVID-19 (Acute) Orthopedic hardware present (Acute) Clavicle fracture (Acute) Status post laparoscopic appendectomy (Acute) Appendicitis (Acute) Acute appendicitis (Acute) Past Medical History Medical History Back pain PTSD (post-traumatic stress disorder) Pre-diabetes Migraine Depression Rhabdomyolysis Chest pain Lumbar radiculopathy Pulmonary embolism Polysubstance abuse DVT (deep venous thrombosis) Family History Family history of problems with anesthesia: No Surgical History Surgical History History of surgery S/P insertion of IVC (inferior vena caval) filter Hx of appendectomy History of open reduction and internal fixation (ORIF) procedure Hx of meniscectomy of right knee History of Problems with Anesthesia: No Social History Social History Household Members: Family Household Members Other:: MOM-JENN Housing: House Are you a primary women's health care nurse practitioner to a significant other at home: No Do you presently have visiting nurse or other home services: No Alcohol intake: never Patient Tobacco Use Status: Former Tobacco user Quit Date: 06/2023 Tobacco use type: Cigarette Cigarette Packs Per Day: 0.5 Cigarettes Per Day: 10.0 Years Smoked: 30 Smoked in Last 30 Days: No Patient Interested in Nicotine Replacement: Yes Second Hand Smoke Exposure: No Use of substances other than those prescribed or required for medical reasons: No Have you been hit, kicked, punched, or otherwise hurt by someone within the past year? If so, by whom?: No Are you DNR?: No Advance Directives: Yes Advance Directives Information Provided: Yes Advance Directives on File: Yes Advance Directives Date on File: 10/17/21 Recently lost weight without trying: No Eating poorly because of decreased appetite: No Nutrition Risks: No Nutritional Risk Poor oral hygiene: No (missing teeth-2 left upper. 1 right upper) service: No Current occupational status: unemployed Meds Allergies Allergy/AdvReac Type Severity Reaction Status Date / Time No Known Allergies Allergy Verified 08/27/23 10:57 [No Known Allergies*] Home Medications Medication Instructions Recorded Confirmed Last Taken Type clonidine HCl 0.1 mg tablet 1 tab PO BEDTIME 10/16/21 08/08/23 10/15/21 History quetiapine 50 mg tablet 50 mg PO BEDTIME PRN insomnia 10/17/22 08/08/23 Unknown History trazodone 100 mg tablet 100 mg PO BEDTIME PRN Insomnia 08/07/23 08/08/23 Unknown History warfarin 5 mg tablet 12.5 mg PO QPM 08/07/23 08/27/23 08/19/23 History enoxaparin 150 mg/mL subcutaneous 150 mg subcut DAILY 08/27/23 08/27/23 08/26/23 History syringe Exam Height,Weight and Vital Signs: Height 6 ft 1 in Weight 127.459 kg Last Vital Signs Pulse 82 08/08/23 12:22 Resp 20 08/08/23 12:22 BP 129/87 08/08/23 12:22 Pulse Ox 97 08/08/23 12:22 O2 Del Method Room Air 08/08/23 12:22 Pertinent Lab Results Pertinent Lab Results: Lab Results 08/08/23 Range/Units 13:05 WBC 6.2 (4.8-10.8) X10*3/uL RBC 6.01 H (4.60-5.80) X10*6/uL Hgb 16.1 (14.0-18.0) g/dl Hct 49.5 (42.0-52.0) % MCV 82.4 (80.0-98.0) fL MCH 26.8 L (27.0-33.0) pg MCHC 32.5 (31.0-36.0) g/dl RDW 15.1 (11.0-16.0) % Plt Count 175 D (160-400) X10*3/uL MPV 11.7 (9.4-12.4) fL Absolute Nucleated RBC 0.000 (0.0-0.012) X10*3/uL Nucleated RBC % (auto) 0.0 (0.0-0.2) /100WBC Sodium 140 (135-145) mmol/L Potassium 4.2 (3.3-5.1) mmol/L Chloride 110 H (96-108) mmol/L Carbon Dioxide 24 (22-29) mmol/L Anion Gap 10 L (12-20) BUN 18 H (9-16) mg/dL Creatinine 1.00 (0.5-1.4) mg/dL Estim Creat Clear Calc 126.4 Estimated GFR > 60 Random Glucose 112 (60-115) mg/dL Calcium 9.2 D (8.4-10.2) mg/dL Narrative Narrative: EKG 02/2023 Vent. Rate : 110 BPM Atrial Rate : 110 BPM P-R Int : 152 ms QRS Dur : 102 ms QT Int : 376 ms P-R-T Axes : 074 071 029 degrees QTc Int : 508 ms Sinus tachycardia Possible Left atrial enlargement Incomplete right bundle branch block Borderline ECG No previous ECGs available ECHO 02/2023 Conclusions: - Normal left ventricular cavity size. The left ventricular systolic function is hyperdynamic. The visually estimated ejection fraction is between 65-70%. There is no evidence of regional wall motion abnormalities. Diastolic function is normal for age. There is severe septal asymmetric hypertrophy. - Moderately increased right ventricular cavity size. There is moderately decreased right ventricular systolic function. Brown's sign - acute pulmonary embolism - Moderate pulmonary hypertension is present. Airway TM Dist: >3cm Neck ROM: Full Loose/Missing/Broken Teeth: Yes (2 x missing upper, 1 x cap) Assessment and Plan Assessment Anesthesia Assessment: Anesthesia Plan Discussed and PAT Visit Final Anesthetic Review Family History of Problems with Anesthesia: No History of Problems with Anesthesia: No Documented by User: Nichol Chatterjee MD 08/27/23 11:52 PMFSH Past Medical History Medical History Back pain PTSD (post-traumatic stress disorder) Pre-diabetes Migraine Depression Rhabdomyolysis Chest pain Lumbar radiculopathy Pulmonary embolism Polysubstance abuse DVT (deep venous thrombosis) Surgical History Surgical History History of surgery S/P insertion of IVC (inferior vena caval) filter Hx of appendectomy History of open reduction and internal fixation (ORIF) procedure Hx of meniscectomy of right knee Social History Social History Household Members: Family Household Members Other:: ALESHA-JENN Housing: House Are you a primary women's health care nurse practitioner to a significant other at home: No Do you presently have visiting nurse or other home services: No Alcohol intake: never Patient Tobacco Use Status: Former Tobacco user Quit Date: 06/2023 Tobacco use type: Cigarette Cigarette Packs Per Day: 0.5 Cigarettes Per Day: 10.0 Years Smoked: 30 Smoked in Last 30 Days: No Patient Interested in Nicotine Replacement: Yes Second Hand Smoke Exposure: No Use of substances other than those prescribed or required for medical reasons: No Have you been hit, kicked, punched, or otherwise hurt by someone within the past year? If so, by whom?: No Are you DNR?: No Advance Directives: Yes Advance Directives Information Provided: Yes Advance Directives on File: Yes Advance Directives Date on File: 10/17/21 Recently lost weight without trying: No Eating poorly because of decreased appetite: No Nutrition Risks: No Nutritional Risk Poor oral hygiene: No (missing teeth-2 left upper. 1 right upper) service: No Current occupational status: unemployed Meds Allergies Allergy/AdvReac Type Severity Reaction Status Date / Time No Known Allergies Allergy Verified 08/27/23 10:57 [No Known Allergies*] Home Medications Medication Instructions Recorded Confirmed Last Taken Type clonidine HCl 0.1 mg tablet 1 tab PO BEDTIME 10/16/21 08/08/23 10/15/21 History quetiapine 50 mg tablet 50 mg PO BEDTIME PRN insomnia 10/17/22 08/08/23 Unknown History trazodone 100 mg tablet 100 mg PO BEDTIME PRN Insomnia 08/07/23 08/08/23 Unknown History warfarin 5 mg tablet 12.5 mg PO QPM 08/07/23 08/27/23 08/19/23 History enoxaparin 150 mg/mL subcutaneous 150 mg subcut DAILY 08/27/23 08/27/23 08/26/23 History syringe Exam Airway Mallampati Class: II Heart: rrr Lungs: cta Assessment and Plan Final Anesthetic Review NPO: Yes ASA Class: III Final Preanesthetic Review: No Changes in Pt Med Stat, Meds/Allgs Chart Reviewed, Consent Obtained/Reviewed and Anes Risks/Benef Reviewed Patient Risk: Intermediate Procedure Risk: Intermediate Anesthetic Plan Anesthetic Plan: GA and Regional Block Disposition: Standard PACU
[2023-08-08 13:52] LABS: Anion Gap 10 (12-20); Blood Urea Nitrogen 18 mg/dL (9-16); Calcium 9.2 mg/dL (8.4-10.2); Carbon Dioxide 24 mmol/L (22-29); Chloride 110 mmol/L (96-108); Creatinine Clr Calc Pharmacy 126.4; Estimated Glomerular Filt Rate > 60; Glucose Random 112 mg/dL (60-115); Potassium 4.2 mmol/L (3.3-5.1); Sodium 140 mmol/L (135-145)
[2023-08-27] VITALS (14 sets, daily range): BP systolic 111–155; BP diastolic 75–95; PULSE 73–93; RESP 12–20; TEMP 36.2–36.4; O2SAT 94–98
--- NOTE | ~2023-08-27 | FL_ITS ---
EXAMINATION: XR FLUOROSCOPY WITH IMAGES CLINICAL INFORMATION: ORIF left clavicle. COMPARISON: Prior radiographs, most recently 01/17/2023. TECHNIQUE: Fluoroscopy Supervised By: Dr. Davon Lin. Fluoroscopy Time: 0.0 minutes. Cumulative Dose: 0.407 mGy. DAP: 0.40786 Gycm2. Images: 2. FINDINGS: The submitted images show bony union of the distal left clavicle, with fine bony detail limited by fluoroscopy technique. The orthopedic fixator plate and fixator screws appear to have been removed. FL/FL guidance in OR IMPRESSION: Intraoperative fluoroscopic guidance is provided, as detailed. Please see the patient's Operative Report for full procedural details.
[2023-08-27] MEDS: Lactated Ringers 1,000 ML 100 ML IVCONT (10:48)
[2023-08-27 11:38] LABS: INTERNATIONAL NORM RATIO 0.9 (0.9-1.1); Prothrombin Time 11.2 SEC (11.1-13.3)
--- NOTE | 2023-08-27 13:21 | MHC.SHP ---
Pre-Procedural Eval Section A Date of Service: 08/27/23 The patient is an INPATIENT: No Changes since office visit: No Cold of Flu in the past 2 weeks, No New Medical Problems, No Changes in Medication and No Patient answered all questions The History & Physical has been completed within 30 days and I have reviewed it.: Yes Section B Chief Complaint: Fracture of unspecified part of left clavicle, sub Allergies: Allergies Allergy/AdvReac Type Severity Reaction Status Date / Time No Known Allergies Allergy Verified 08/27/23 10:57 [No Known Allergies*] Plan I have reviewed the history and physical and performed a pertinent physical examination on my patient. No changes have occurred unless specified. Time Spent With Patient Time: Total time managing care of this patient today ____ minutes.
--- NOTE | 2023-08-27 15:04 | PM.OP ---
Brief Operative Note Date of Service: 08/27/23 Pre-op diagnosis: Left clavicle non union Post-op diagnosis: other (prominent ortho hardware) Procedure: Removal of hardware Implants: none Surgeon: Davon Lin MD Anesthesia: GETA and regional Was an Mannequin Wig Maker used for this Procedure?: Yes Mannequin Wig Maker: Yuli Sung Estimated blood loss (mL): 50 Tourniquet time (min): 0 IV fluids (mL): 800 Pathology: none sent Condition: stable Disposition: PACU
[2023-08-27] MEDS: HYDROmorphone HCl 0.5 MG/0.5 ML SYRINGE 0.25 MG IVPUSH ×3 (15:09→15:54)
--- NOTE | 2023-08-28 12:15 | W.PM.OPN ---
Operative Note Operative Note Date of Service: 08/27/23 Narrative: Date of Service: 08/27/23 Pre-op diagnosis: Left clavicle non union Post-op diagnosis: other (prominent ortho hardware) Procedure: Removal of hardware Implants: none Surgeon: Davon Lin MD Anesthesia: GETA and regional Was an Servicing Manager used for this Procedure?: Yes Servicing Manager: Yuli Sung Estimated blood loss (mL): 50 Tourniquet time (min): 0 IV fluids (mL): 800 Pathology: none sent Condition: stable Disposition: PACU Patient was brought to the operating room and placed in the beach chair position on the surgical table. The site was prepped and draped in standard sterile fashion and a time out was called to identify proper site, proper procedure and IV antibiotics per weight were administered. I began by making a superior incision over the clavicle and the plate. Once through skin the plate was easily identified and soft tissues were removed and the screws removed easily. Once out the clavicle was debrided of loose tissue and the non union was probed. It was healing with firm bony union and mature callous. I debrided further with a 15 blade but the clavicle was moving as a unit and so the decision was made to remove the late only. The plate was proud and painful but it appeared that the non un ion was healing and so no further intervention was warranted. Biiplanar fluoroscopy was used to confirm appropriate hardware removal. Once I was satisfied with these parameters I copiously irrigated and closed with absorbable suture, skin glue and Steri-Strips. Patient was placed in sterile dressing and extubated brought to recovery room stable condition there were no known complications.
== END 2023-08-27 17:23 | disposition home or self-care (01) ==
LOC: HO.SSS 10:08
PROVIDERS: Nurse Practitioner; Visit Provider Orthopaedic Surgery
PROC: (CPT 23515; principal; 2023-08-27 12:40)
DX: S42.002K Fracture of unspecified part of left clavicle, subsequent encounter for fracture with nonunion (principal); T84.84XA Pain due to internal orthopedic prosthetic devices, implants and grafts, initial encounter; M54.9 Dorsalgia, unspecified; Y79.2 Prosthetic and other implants, materials and accessory orthopedic devices associated with adverse incidents; I82.501 Chronic embolism and thrombosis of unspecified deep veins of right lower extremity; I26.99 Other pulmonary embolism without acute cor pulmonale; Z79.01 Long term (current) use of anticoagulants; Z95.828 Presence of other vascular implants and grafts; M62.82 Rhabdomyolysis; Z79.899 Other long term (current) drug therapy; F19.10 Other psychoactive substance abuse, uncomplicated; F17.210 Nicotine dependence, cigarettes, uncomplicated; Z98.890 Other specified postprocedural states
CPT/HCPCS: 20680; 36415; 80048; 85027; 85610; J0131; J0665; J0690; J1100; J1170; J2250; J2405; J2704; J2795; J3010

== ENCOUNTER → 2023-08-27 10:07 | Outpatient (BNV) | payer OTHER, SELFPAY | PROVIDERS: Visit Provider Orthopaedic Surgery | DX: S42.002K Fracture of unspecified part of left clavicle, subsequent encounter for fracture with nonunion (principal); T84.84XA Pain due to internal orthopedic prosthetic devices, implants and grafts, initial encounter | CPT/HCPCS: 20680 ==

== ENCOUNTER 2023-09-01 10:51 | Emergency (ER) | payer OTHER, SELFPAY ==
[2023-09-01 10:54] VITALS: BP 130/90; PULSE 101; RESP 17; TEMP 36.9; O2SAT 95; BMI 38.2
--- NOTE | 2023-09-01 11:41 | ED.GENADULT ---
HPI - General Adult General Chief complaint: General Medical Stated complaint: l shoulder pain swelling surgery 08/27 Time Seen by Provider: 09/01/23 11:32 Related Data Home Medications Medication Instructions Recorded Confirmed clonidine HCl 0.1 mg tablet 1 tab PO BEDTIME 10/16/21 08/08/23 quetiapine 50 mg tablet 50 mg PO BEDTIME PRN insomnia 10/17/22 08/08/23 trazodone 100 mg tablet 100 mg PO BEDTIME PRN Insomnia 08/07/23 08/08/23 warfarin 5 mg tablet 12.5 mg PO QPM 08/07/23 08/27/23 enoxaparin 150 mg/mL subcutaneous 150 mg subcut DAILY 08/27/23 08/27/23 syringe Previous Rx's Medication Instructions Recorded acetaminophen 500 mg tablet 500 mg PO Q4-6H PRN fever or pain 10/25/21 (Tylenol Extra Strength) 30 days #168 tabs oxycodone-acetaminophen 5 mg-325 1 tab PO Q4-6H PRN pain (scale 08/27/23 mg tablet (Percocet) score 4-6) 7 days #42 tabs oxycodone-acetaminophen 10 mg-325 1 tab PO Q4-6H PRN pain 7 days #42 09/01/23 mg tablet tabs Allergies Allergy/AdvReac Type Severity Reaction Status Date / Time No Known Allergies Allergy Verified 08/27/23 10:57 [No Known Allergies*] [facility] Past Medical History Medical History Back pain PTSD (post-traumatic stress disorder) Pre-diabetes Migraine Depression Rhabdomyolysis Chest pain Lumbar radiculopathy Pulmonary embolism Polysubstance abuse DVT (deep venous thrombosis) Surgical History History of surgery S/P insertion of IVC (inferior vena caval) filter Hx of appendectomy History of open reduction and internal fixation (ORIF) procedure Hx of meniscectomy of right knee Social History Social History Household Members: Family Household Members Other:: MOM-JENN Housing: House Are you a primary restorative care technician to a significant other at home: No Do you presently have visiting nurse or other home services: No Alcohol intake: never Patient Tobacco Use Status: Former Tobacco user Quit Date: 06/2023 Tobacco use type: Cigarette Cigarette Packs Per Day: 0.5 Cigarettes Per Day: 10.0 Years Smoked: 30 Second Hand Smoke Exposure: No Advance Directives Date on File: 10/17/21 service: No Current occupational status: unemployed Physical Exam ED Vital Signs: Vital Signs - 24 hr 09/01/23 10:54 Temperature 98.4 F Pulse Rate 101 H Respiratory Rate 17 Blood Pressure 130/90 H Pulse Oximetry 95 Oxygen Delivery Method Room Air BMI result Body Mass Index 38.2 Course Course Course Narrative: This is an RME: Additional HPI, ROS, PE not included below will be deferred to primary provider. This is a 48-year-old male presenting to the emergency department for evaluation of worsening left shoulder and clavicular pain status post surgery which occurred on 08/27/[address] Lin. Patient states that he has had worsening pain, swelling to the surgical site which started 2 days ago. I went to go evaluate patient however he states that he just got off the phone with the orthopedist who is able to see him in his outpatient office for evaluation. I instructed patient that he is more than welcome to go over there for evaluation. Patient currently in shoulder immobilizer, with wound patch noted to the left shoulder clavicular area. Patient is afebrile, pulse 101, he is speaking in full sentences. Left prior to full evaluation. Discharge Plan Discharge Clinical Impression: Clavicle fracture Patient Disposition: Left W/O Completing Treatment Prescriptions: No Action acetaminophen [Tylenol Extra Strength] 500 mg tablet 500 mg PO Q4-6H PRN (Reason: fever or pain) 30 Days Qty: 168 0RF clonidine HCl 0.1 mg tablet 1 tab PO BEDTIME trazodone 100 mg tablet 100 mg PO BEDTIME PRN (Reason: Insomnia) warfarin 5 mg tablet 12.5 mg PO QPM enoxaparin 150 mg/mL syringe 150 mg subcut DAILY oxycodone-acetaminophen [Percocet] 5-325 mg tablet 1 tab PO Q4-6H PRN (Reason: pain (scale score 4-6)) 7 Days Qty: 42 0RF Rx Instructions: Partial Fill upon patient request. quetiapine 50 mg tablet 50 mg PO BEDTIME PRN (Reason: insomnia) oxycodone-acetaminophen 10-325 mg tablet 1 tab PO Q4-6H PRN (Reason: pain) 7 Days Qty: 42 0RF Rx Instructions: Partial Fill upon patient request. Interventions: ED Discharge Assessment Last Done: 09/01/23 11:43 Discharge Date/Time: 09/01/23 11:45
--- NOTE | 2023-09-01 11:42 | PC.NURSE ---
pt awaiting to see provider and got a call from Dr. Ann office to go to their office to be seen and not wait in the ED.
== END 2023-09-01 11:45 | disposition left against medical advice (07) ==
PROVIDERS: Emergency Provider Emergency Medicine; PCP Orthopaedic Surgery
DX: S42.002A Fracture of unspecified part of left clavicle, initial encounter for closed fracture (principal); X58.XXXA Exposure to other specified factors, initial encounter; Y93.9 Activity, unspecified; Y92.9 Unspecified place or not applicable; Y99.9 Unspecified external cause status; G89.18 Other acute postprocedural pain; M25.512 Pain in left shoulder
CPT/HCPCS: 99212; 99282

== ENCOUNTER 2023-09-01 11:48 | Outpatient (AMB) | payer OTHER, SELFPAY ==
[2023-09-01 11:49] VITALS: BMI 38.1
--- NOTE | 2023-09-01 11:49 | MHC.OFFVIS ---
Intake Vital Signs 09/01/23 11:49 Height 6 ft 2 in Weight 297 lb BMI 38.1 Intake Visit Reasons: PO L clavicle ORIF 08/27/23 NE Intake Note: Ethan is a 48 year old male who presents today for a post op appointment s/p L clavicle ORIF 08/27/23 NE. Allergies No Known Allergies [No Known Allergies*] Allergy (Verified 08/27/23 10:57) HPI PO L clavicle ORIF 08/27/23 NE HPI Details 48-year-old male who presents in the office today for a wound check; 5 days status post left clavicle removal of hardware, which was performed on 08/27/[address] Lin. The patient presented to the ED today, 09/01/2023, with a complaint increased pain for the past two days (since 08/10/2023) in the left shoulder and clavicle. The patient left the ED prior to evaluation to be seen in our office after he notified the MA his wound was leaking with noted edema. [facility] Medical History Back pain PTSD (post-traumatic stress disorder) Pre-diabetes Migraine Depression Rhabdomyolysis Chest pain Lumbar radiculopathy Pulmonary embolism Polysubstance abuse DVT (deep venous thrombosis) Surgical History History of surgery S/P insertion of IVC (inferior vena caval) filter Hx of appendectomy History of open reduction and internal fixation (ORIF) procedure Hx of meniscectomy of right knee Social History Household Members: Family Household Members Other:: MOM-JENN Housing: House Are you a primary career development engineer to a significant other at home: No Do you presently have visiting nurse or other home services: No Alcohol intake: never Patient Tobacco Use Status: Former Tobacco user Quit Date: 06/2023 Tobacco use type: Cigarette Cigarette Packs Per Day: 0.5 Cigarettes Per Day: 10.0 Years Smoked: 30 Second Hand Smoke Exposure: No Advance Directives Date on File: 10/17/21 service: No Current occupational status: unemployed Review of Systems Const All systems reviewed & are unremarkable except as noted in HPI and below Physical Exam Vital Signs: BMI result Body Mass Index 38.1 Const General: cooperative, healthy appearing and no acute distress Resp Effort & Inspection: normal respiratory effort and able to speak in complete sentences Cardio Rate: regular rate Peripheral pulses: Peripheral pulses 2+ throughout GI Palpation (GI): Soft to palpation Skin Lesions: no lesions Rashes: no rashes Extrem Other: Left clavicle: Incision site is clean, dry, and intact. Significant hematoma over the area. Extreme tenderness to palpation. No signs of infection. NVI. Assessment & Plan Assessment & Plan (1) S/P hardware removal: Onset Date: ~08/27/23 Comment: Left clavicle ALISIA 08/27/2023 Dr. Davon Lin Code(s): Z98.890 - Other specified postprocedural states (2) Fracture of left clavicle with nonunion: Code(s): S42.002K - Fracture of unspecified part of left clavicle, subsequent encounter for fracture with nonunion (3) Pulmonary embolism: Code(s): I26.99 - Other pulmonary embolism without acute cor pulmonale Plan Mr. Fontenot is a 48-year-old male who presents in the office today for a wound check; 5 days status post left clavicle removal of hardware, which was performed on 08/27/[address] Lin. The patient presented to the ED today, 09/01/2023, with a complaint increased pain for the past two days (since 08/10/2023) in the left shoulder and clavicle. The patient left the ED prior to evaluation to be seen in our office after he notified the MA his wound was leaking with noted edema. Dr. Lin was available to see the patient with me while in the office today and a collaborative treatment plan was made. Dr. Lin attempted to aspirated the area, however the hematoma has coagulated and was unable to aspirated at this time. I am going to reschedule the patient?s follow up appointment that was scheduled for tomorrow to 09/05/2023 for a wound check. I have sent a prescription for oxycodone-acetaminophen 10-325 mg PO Q4-6H PRN to the pharmacy. Follow up will be on Friday, or sooner if needed. Medications: New oxycodone-acetaminophen 10-325 mg Partial Fill upon patient request. 1 tab PO Q4-6H PRN 42 tabs 0RF pain 7 days Patient Instructions: Scribed for Yuli Sung PA-C by Dilma Solano medical assistant dermatology, on 08/08/2023 at 11:52 am, EST. Coding Level of Care Code Global (96457) Diagnoses S/P hardware removal Z98.890 Fracture of left clavicle with nonunion S42.002K Pulmonary embolism I26.99
== END 2023-09-01 12:32 | disposition home or self-care (01) ==
PROVIDERS: PCP Orthopaedic Surgery; Visit Provider Physician Assistant
DX: Z98.890 Other specified postprocedural states (principal); S42.002K Fracture of unspecified part of left clavicle, subsequent encounter for fracture with nonunion; I26.99 Other pulmonary embolism without acute cor pulmonale
CPT/HCPCS: 99024

== ENCOUNTER 2023-09-05 10:38 | Outpatient (AMB) | payer OTHER, SELFPAY ==
--- NOTE | 2023-09-05 10:39 | MHC.OFFVIS ---
Intake Vital Signs 09/05/23 10:47 Height 6 ft 2 in Weight 297 lb BMI 38.1 Intake Visit Reasons: PO - Left clavicle ORIF 08/27/23 NE Intake Note: Ethan is a 48 year old male who presents today for a post op appointment s/p L clavicle ORIF 08/27/23 NE. Chris reports he is feeling a lot of soreness. He states when drinking cold water he feels a wired sensation near the clavicle. Allergies No Known Allergies [No Known Allergies*] Allergy (Verified 09/05/23 10:46) HPI PO - Left clavicle ORIF 08/27/23 NE HPI Details 48-year-old male who presents in the office today for a wound check; 9 days status post left clavicle removal of hardware, which was performed on 08/27/[address] Lin. I last saw the patient in the office on 09/01/2023 when we attempted to aspirate the area, but the hematoma has coagulated and was unable to aspirated at this time. A refill for Oxycodone-acetaminophen 10-325 mg PO Q4-6H PRN was sent to the pharmacy. While in the office today the patient reports he is feeling a lot of soreness. He states when he drinks cold water he feels a weird sensation near the clavicle. [facility] Medical History Back pain PTSD (post-traumatic stress disorder) Pre-diabetes Migraine Depression Rhabdomyolysis Chest pain Lumbar radiculopathy Pulmonary embolism Polysubstance abuse DVT (deep venous thrombosis) Surgical History History of surgery S/P insertion of IVC (inferior vena caval) filter Hx of appendectomy History of open reduction and internal fixation (ORIF) procedure Hx of meniscectomy of right knee Social History Household Members: Family Household Members Other:: JEANNINE Housing: House Are you a primary healthcare administrative assistant to a significant other at home: No Do you presently have visiting nurse or other home services: No Alcohol intake: never Patient Tobacco Use Status: Former Tobacco user Quit Date: 06/2023 Tobacco use type: Cigarette Cigarette Packs Per Day: 0.5 Cigarettes Per Day: 10.0 Years Smoked: 30 Second Hand Smoke Exposure: No Advance Directives Date on File: 10/17/21 service: No Current occupational status: unemployed Review of Systems Const All systems reviewed & are unremarkable except as noted in HPI and below Physical Exam Vital Signs: BMI result Body Mass Index 38.1 Const General: cooperative, healthy appearing and no acute distress Resp Effort & Inspection: normal respiratory effort and able to speak in complete sentences Cardio Rate: regular rate Peripheral pulses: Peripheral pulses 2+ throughout GI Palpation (GI): Soft to palpation Skin Lesions: no lesions Rashes: no rashes Extrem Other: Left clavicle: Incision site is clean, dry, and intact. Significant hematoma over the area. Extreme tenderness to palpation. No signs of infection. NVI. Assessment & Plan Assessment & Plan (1) S/P hardware removal: Onset Date: ~08/27/23 Comment: Left clavicle ALISAI 08/27/2023 Dr. Davon Lin Code(s): Z98.890 - Other specified postprocedural states (2) Fracture of left clavicle with nonunion: Code(s): S42.002K - Fracture of unspecified part of left clavicle, subsequent encounter for fracture with nonunion (3) Pulmonary embolism: Code(s): I26.99 - Other pulmonary embolism without acute cor pulmonale Plan Mr. Fontenot is a 48-year-old male who presents in the office today for a wound check; 9 days status post left clavicle removal of hardware, which was performed on 08/27/[address] Lin. I last saw the patient in the office on 09/01/2023 when we attempted to aspirate the area, but the hematoma has coagulated and was unable to aspirated at this time. A refill for Oxycodone-acetaminophen 10-325 mg PO Q4-6H PRN was sent to the pharmacy. While in the office today the patient reports he is feeling a lot of soreness. He states when he drinks cold water he feels a weird sensation near the clavicle. The patient shows no signs of infection upon today?s exam. He continues to have a hematoma over the surgical site. A new dressing was applied which consist of gauze and foam tape for compression dressing. I would like for the patient to return on for another wound check. Follow up will be on 09/11/2023, or sooner if needed. Patient Instructions: Scribed for Yuli Sung PA-C by Dilma Solano senior medical billing specialist, on 09/05/2023 at 10:44 am, EST. Coding Level of Care Code Global (67924) Diagnoses S/P hardware removal Z98.890 Fracture of left clavicle with nonunion S42.002K Pulmonary embolism I26.99
[2023-09-05 10:47] VITALS: BMI 38.1
== END 2023-09-05 10:54 | disposition home or self-care (01) ==
PROVIDERS: PCP Orthopaedic Surgery; Visit Provider Physician Assistant
DX: Z98.890 Other specified postprocedural states (principal); S42.002K Fracture of unspecified part of left clavicle, subsequent encounter for fracture with nonunion; I26.99 Other pulmonary embolism without acute cor pulmonale
CPT/HCPCS: 99024

== ENCOUNTER → 2023-09-05 10:38 | Outpatient (BNVA) | payer OTHER, SELFPAY | PROVIDERS: PCP Orthopaedic Surgery; Visit Provider Physician Assistant | DX: S42.002K Fracture of unspecified part of left clavicle, subsequent encounter for fracture with nonunion (principal); I26.99 Other pulmonary embolism without acute cor pulmonale; Z98.890 Other specified postprocedural states | CPT/HCPCS: 99212 ==

== ENCOUNTER 2023-09-11 09:07 | Outpatient (AMB) | payer OTHER, SELFPAY ==
[2023-09-11 09:08] VITALS: BMI 38.1
--- NOTE | 2023-09-11 09:08 | MHC.OFFVIS ---
Intake Vital Signs 09/11/23 09:08 Height 6 ft 2 in Weight 297 lb BMI 38.1 Intake Visit Reasons: Post OP - Left clavicle ORIF 08/27/23 NE Intake Note: Ethan is a 48 year old male who presents today for a wound check s/p L clavicle ORIF 08/27/23 NE. Patient reports his pain is getting better over time. He states that yesterday his bandage was soaked with just blood no puss. Allergies No Known Allergies [No Known Allergies*] Allergy (Verified 09/11/23 09:09) HPI Post OP - Left clavicle ORIF 08/27/23 NE HPI Details 48-year-old male who presents in the office today for a wound check; 9 days status post left clavicle removal of hardware, which was performed on 08/27/[address] Lin. I last saw the patient in the office on 09/05/2023 where it was noted he continue to have a hematoma over the incision site and new dressings were applied. While in the office today the patient reports his pain is getting better. He does report yesterday, 09/10/2023 that is bandage was soaked with blood, but no pus. The patient reports a significant amount of blood drainage from the area. He provided photos evidence of quite a large amount. There is no active drainage while in the office today and no signs of infection. [facility] Medical History Back pain PTSD (post-traumatic stress disorder) Pre-diabetes Migraine Depression Rhabdomyolysis Chest pain Lumbar radiculopathy Pulmonary embolism Polysubstance abuse DVT (deep venous thrombosis) Surgical History History of surgery S/P insertion of IVC (inferior vena caval) filter Hx of appendectomy History of open reduction and internal fixation (ORIF) procedure Hx of meniscectomy of right knee Social History Household Members: Family Household Members Other:: MOM-JENN Housing: House Are you a primary medicare contact specialist to a significant other at home: No Do you presently have visiting nurse or other home services: No Alcohol intake: never Patient Tobacco Use Status: Former Tobacco user Quit Date: 06/2023 Tobacco use type: Cigarette Cigarette Packs Per Day: 0.5 Cigarettes Per Day: 10.0 Years Smoked: 30 Second Hand Smoke Exposure: No Advance Directives Date on File: 10/17/21 service: No Current occupational status: unemployed Review of Systems Const All systems reviewed & are unremarkable except as noted in HPI and below Physical Exam Vital Signs: BMI result Body Mass Index 38.1 Const General: cooperative, healthy appearing and no acute distress Resp Effort & Inspection: normal respiratory effort and able to speak in complete sentences Cardio Rate: regular rate Peripheral pulses: Peripheral pulses 2+ throughout GI Palpation (GI): Soft to palpation Skin Lesions: no lesions Rashes: no rashes Extrem Other: Left clavicle: Incision site is clean, dry, and intact. Significant hematoma over the area. Tenderness to palpation. 45 degrees FF and ABD. No signs of infection. NVI. Assessment & Plan Assessment & Plan (1) S/P hardware removal: Onset Date: ~08/27/23 Comment: Left clavicle ALISIA 08/27/2023 Dr. Davon Lin Code(s): Z98.890 - Other specified postprocedural states (2) Fracture of left clavicle with nonunion: Code(s): S42.002K - Fracture of unspecified part of left clavicle, subsequent encounter for fracture with nonunion (3) Pulmonary embolism: Code(s): I26.99 - Other pulmonary embolism without acute cor pulmonale Plan Mr. Fontenot is a 48-year-old male who presents in the office today for a wound check; 9 days status post left clavicle removal of hardware, which was performed on 08/27/[address] Lin. I last saw the patient in the office on 09/05/2023 where it was noted he continue to have a hematoma over the incision site and new dressings were applied. While in the office today the patient reports his pain is getting better. He does report yesterday, 09/10/2023 that is bandage was soaked with blood, but no pus. The patient reports a significant amount of blood drainage from the area. He provided photos evidence of quite a large amount. There is no active drainage while in the office today and no signs of infection. The case was discussed with Dr. Lin and a collaborative treatment plan was made. The incision site was cleaned and dressed with an Aquacel dressing. I would like to see the patient back in the office on 09/15/2023, with anticipation of dressing change. Should his dressing become saturated and begin to leak or there are any concerns, he will keep the dressing on and reinforce with ABD?s and tape, which was supplied to him while in the office today. Follow up will be on Friday09/15/2023, or sooner if needed. Patient Instructions: Scribed by Dilma Solano medical assistant secretary, for Yuli Sung PA-C on 09/11/2023 at 9:08 am, EST. Coding Level of Care Code Global (17904) Diagnoses S/P hardware removal Z98.890 Fracture of left clavicle with nonunion S42.002K Pulmonary embolism I26.99
== END 2023-09-11 09:32 | disposition home or self-care (01) ==
PROVIDERS: PCP Orthopaedic Surgery; Visit Provider Physician Assistant
DX: Z98.890 Other specified postprocedural states (principal); S42.002K Fracture of unspecified part of left clavicle, subsequent encounter for fracture with nonunion; I26.99 Other pulmonary embolism without acute cor pulmonale
CPT/HCPCS: 99024

== ENCOUNTER → 2023-09-11 09:07 | Outpatient (BNVA) | payer OTHER, SELFPAY | PROVIDERS: PCP Orthopaedic Surgery; Visit Provider Physician Assistant | DX: S42.002K Fracture of unspecified part of left clavicle, subsequent encounter for fracture with nonunion (principal); I26.99 Other pulmonary embolism without acute cor pulmonale; Z98.890 Other specified postprocedural states | CPT/HCPCS: 99212 ==

== ENCOUNTER 2023-09-26 12:16 | Outpatient (AMB) | payer OTHER, SELFPAY ==
[2023-09-26 12:20] VITALS: BMI 38.1
--- NOTE | 2023-09-26 12:20 | MHC.OFFVIS ---
Intake Vital Signs 09/26/23 12:20 Height 6 ft 2 in Weight 297 lb BMI 38.1 Intake Visit Reasons: PO-Left clavicle ORIF 08/27/23 NE-Wound check Intake Note: Ethan is a 48 year old male who presents today for a post operative appointment s/p Left Clavicle ORIF 08/27/23 for a wound check. Patient reports that his incision opened about 2 weeks ago, he has been cleaning and applying dressings. He reports that he was having transportation issues and was unable to attend his last appointment but then was pushed out 2 weeks for an appointment Allergies No Known Allergies [No Known Allergies*] Allergy (Verified 09/11/23 09:09) HPI PO-Left clavicle ORIF 08/27/23 NE-Wound check HPI Details Ethan is a 48 year old man who presents ~1 month S/P left clavicle removal of hardware. He is here for a wound check of a developed hematoma. He says his incision opened following his last appointment on 09/11/23, and due to transportation issues he was unable to attend clinic earlier. He says he has been performing daily dressing changes at home. [facility] Medical History Back pain PTSD (post-traumatic stress disorder) Pre-diabetes Migraine Depression Rhabdomyolysis Chest pain Lumbar radiculopathy Pulmonary embolism Polysubstance abuse DVT (deep venous thrombosis) Surgical History History of surgery S/P insertion of IVC (inferior vena caval) filter Hx of appendectomy History of open reduction and internal fixation (ORIF) procedure Hx of meniscectomy of right knee Social History Household Members: Family Household Members Other:: MOM-JENN Housing: House Are you a primary career education teacher to a significant other at home: No Do you presently have visiting nurse or other home services: No Alcohol intake: never Patient Tobacco Use Status: Former Tobacco user Quit Date: 06/2023 Tobacco use type: Cigarette Cigarette Packs Per Day: 0.5 Cigarettes Per Day: 10.0 Years Smoked: 30 Second Hand Smoke Exposure: No Advance Directives Date on File: 03/16/22 service: No Current occupational status: unemployed Review of Systems Const All systems reviewed & are unremarkable except as noted in HPI and below Physical Exam Vital Signs: BMI result Body Mass Index 38.1 Const General: no acute distress, alert and awake Orientation/consciousness: patient oriented x3 HEENT Head: Yes normocephalic and Yes atraumatic Eyes EOM: EOMs intact bilaterally Resp Effort & Inspection: normal respiratory effort and able to speak in complete sentences Cardio Jugular venous distension: no JVD Skin General skin exam: turgor normal Rashes: no rashes Neuro General: patient oriented x3 Extrem Other: Quarter-sized open wound inferior to incision No purulence Full thickness skin loss Psych Appearance: grossly normal Affect: normal affect Attitude: cooperative Assessment & Plan Assessment & Plan (1) S/P hardware removal: Onset Date: ~08/27/23 Comment: Left clavicle ALISIA 08/27/2023 Dr. Davon Lin Code(s): Z98.890 - Other specified postprocedural states (2) Hematoma: Code(s): T14.8XXA - Other injury of unspecified body region, initial encounter (3) Skin breakdown: Code(s): R23.8 - Other skin changes Plan: Post operative hematoma now with quarter sized area of skin loss. WTD dressing and po abx. will see on Friday Plan Prepared for Davon Lin MD by Eric Solorio, medical coding specialist, on 09/26/23 at 12:21 PM, EST. Coding Level of Care Code Global (57115) Diagnoses S/P hardware removal Z98.890 Hematoma T14.8XXA Skin breakdown R23.8
== END 2023-09-26 12:43 | disposition home or self-care (01) ==
PROVIDERS: PCP Orthopaedic Surgery; Visit Provider Orthopaedic Surgery
DX: Z98.890 Other specified postprocedural states (principal); T14.8XXA Other injury of unspecified body region, initial encounter; R23.8 Other skin changes
CPT/HCPCS: 99024

== ENCOUNTER → 2023-09-26 12:16 | Outpatient (BNVA) | payer OTHER, SELFPAY | PROVIDERS: PCP Orthopaedic Surgery; Visit Provider Orthopaedic Surgery | DX: Z47.89 Encounter for other orthopedic aftercare (principal); T81.31XD Disruption of external operation (surgical) wound, not elsewhere classified, subsequent encounter; L76.32 Postprocedural hematoma of skin and subcutaneous tissue following other procedure; R23.8 Other skin changes; Z98.890 Other specified postprocedural states; Z79.2 Long term (current) use of antibiotics | CPT/HCPCS: 99212 ==

== ENCOUNTER 2023-09-29 14:20 | Outpatient (AMB) | payer OTHER, SELFPAY ==
--- NOTE | 2023-09-29 14:22 | A.OFFVIS_ITS ---
Intake Intake Visit Reasons: PO - Left Clavicle ALISIA 08/27/23 - Wound Check Intake Note: Ethan is a 48 year old male who presents today for a wound check s/p left clavicle ALISIA 08/27/23 NE. Patient reports he is not doing well. He states that he is getting worse. He is unable to sleep at night. Allergies No Known Allergies [No Known Allergies*] Allergy (Verified 09/29/23 14:36) HPI PO - Left Clavicle ALISIA 08/27/23 - Wound Check HPI Details 48-year-old male who presents in the off ice today for a wound check; 1 month status post left clavicle removal of hardware, which was performed on 08/27/[address] Lin. The patient was last seen by Dr. Lin on 09/26/2023 where he reported the incision site opened after his appointment on 09/11/2023 but was unable to present to the office due to transportation issues. The patient was instructed to do wet to dry dressing changes over the weekend. He was prescribed Doxycycline hyclate 100 mg PO BID for 10 days. While in the office today the patient report she is not doing well. He states he is getting worse and is unable to sleep at night. Patient has no known allergy history. Patient is currently taking, as follows: -Acetaminophen 500 mg PO Q4-6H PRN -Clonidine HCI 0.1 mg PO bedtime -Doxycycline Hyclate 100 mg PO BID -Enoxaparin 150 mg subcut Daily -Oxycodone-acetaminophen 10-325 mg PO Q6 H PRN -Quetiapine 50 mg PO bedtime PRN -Trazodone 100 mg PO bedtime PRN -Warfarin 12.5 mg PO QPM Patient has a medical history, as follows: -Pulmonary embolism -PTSD (post-traumatic stress disorder) -Pre-diabetes -Migraine -Depression -Rhabdomyolysis; 2181-[id number]-bvjyj nt states stroke due to overdose-blood clots resulted afterwards -Polysubstance abuse -DVT (deep venous thrombosis) Patient has a surgical history, as follows: -History of surgery; 2021-catheter direc harvey thrombolysis of right femoral DVT & angioplasty left common femoral vein -History of insertion of IVC (inferior v laura caval) filter; 02/2023 -History of appendectomy -History of left clavicle ORIF 2018 -History of left forearm ORIF 2014 -History of menisectomy of right knee; 2 018 Patient has a social history, as follows: - Former smoker; Cigarettes, 0.5 packs p er day, quit 06/2023. [facility] Medical History Back pain PTSD (post-traumatic stress disorder) Pre-diabetes Migraine Depression Rhabdomyolysis Chest pain Lumbar radiculopathy Pulmonary embolism Polysubstance abuse DVT (deep venous thrombosis) Surgical History History of surgery S/P insertion of IVC (inferior vena caval) filter Hx of appendectomy History of open reduction and internal fixation (ORIF) procedure Hx of meniscectomy of right knee Social History Household Members: Family Household Members Other:: ALESHA-JENN Housing: House Are you a primary career development counselor to a significant other at home: No Do you presently have visiting nurse or other home services: No Alcohol intake: never Patient Tobacco Use Status: Former Tobacco user Quit Date: 06/2023 Tobacco use type: Cigarette Cigarette Packs Per Day: 0.5 Cigarettes Per Day: 10.0 Years Smoked: 30 Second Hand Smoke Exposure: No Advance Directives Date on File: 10/17/21 service: No Current occupational status: unemployed Review of Systems Const All systems reviewed & are unremarkable except as noted in HPI and below Physical Exam Const General: cooperative, healthy appearing and no acute distress Resp Effort & Inspection: normal respiratory effort and able to speak in complete sentences Cardio Rate: regular rate Peripheral pulses: Peripheral pulses 2+ throughout GI Palpation (GI): Soft to palpation Skin Lesions: no lesions Rashes: no rashes Extrem Other: Wound is roughly 5cm in length 3cm in width and 2 cm deep. Assessment & Plan Assessment & Plan (1) S/P hardware removal: Onset Date: ~08/27/23 Comment: Left clavicle ALISIA 08/27/2023 Dr. Davon Lin Code(s): Z98.890 - Other specified postprocedural states (2) Hematoma: Code(s): T14.8XXA - Other injury of unspecified body region, initial encounter (3) Skin breakdown: Code(s): R23.8 - Other skin changes Plan Mr. Fontenot is a 48-year-old male who presents in the office today for a wound check; 1 month status post left clavicle removal of hardware, which was performed on 08/27/[address] Lin. The patient was last seen by Dr. Lin on 09/26/2023 where he reported the incision site opened after his appointment on 09/11/2023 but was unable to present to the office due to transportation issues. The patient was instructed to do wet to dry dressing changes over the weekend. He was prescribed Doxycycline hyclate 100 mg PO BID for 10 days. While in the office today the patient report she is not doing well. He states he is getting worse and is unable to sleep at night. Patient has no known allergy history. Patient is currently taking, as follows: -Acetaminophen 500 mg PO Q4-6H PRN -Clonidine HCI 0.1 mg PO bedtime -Doxycycline Hyclate 100 mg PO BID -Enoxaparin 150 mg subcut Daily -Oxycodone-acetaminophen 10-325 mg PO Q6H PRN -Quetiapine 50 mg PO bedtime PRN -Trazodone 100 mg PO bedtime PRN -Warfarin 12.5 mg PO QPM Patient has a medical history, as follows: -Pulmonary embolism -PTSD (post-traumatic stress disorder) -Pre-diabetes -Migraine -Depression -Rhabdomyolysis; 6295-[id number]-fvckxlv states stroke due to overdose-blood clots resulted afterwards -Polysubstance abuse -DVT (deep venous thrombosis) Patient has a surgical history, as follows: -History of surgery; 2021-catheter directed thrombolysis of right femoral DVT & angioplasty left common femoral vein -History of insertion of IVC (inferior vena caval) filter; 02/2023 -History of appendectomy -History of left clavicle ORIF 2018 -History of left forearm ORIF 2013 -History of menisectomy of right knee; 2017 Patient has a social history, as follows: - Former smoker; Cigarettes, 0.5 packs per day, quit 06/2023. Dr. Lin was available to see the patient with me while in the office today and a collaborative treatment plan was made. The patient will be brought into the operating room tomorrow for irrigation and debridement of the left clavicle incision site. Patient has tried and failed wet to dry dressings and compression dressings. I discussed in detail the procedure and what to expect pre and post operatively. We discussed the risks, benefits and alternatives to the surgery as well as the rehabilitation course. The risks; which include, but are not limited to infection, bleeding, nerve injury, ongoing pain, swelling, and stiffness, perioperative risk of injury to bones and soft tissues, and blood clots. I have answered all questions and with their understanding they have consented to move forward with a left clavicle irrigation and debridement of the incision site to be performed on 09/30/[address] Davon Lin. Follow up will be at the post operative appointment, or sooner if needed. Medications: Refilled oxycodone-acetaminophen 5-325 mg (Percocet) Partial Fill upon patient request. 1 tab PO Q6H 7 days PRN 28 tabs 0RF pain (scale score 4-6) Patient Instructions: Scribed by Dilma Solano medical delivery technician, for Yuli Sung PA-C on 09/29/2023 at 2:25 pm, EST. Coding Level of Care Code Global (34071) Diagnoses S/P hardware removal Z98.890 Hematoma T14.8XXA Skin breakdown R23.8
== END 2023-09-29 15:12 | disposition home or self-care (01) ==
PROVIDERS: PCP Orthopaedic Surgery; Visit Provider Physician Assistant
DX: Z98.890 Other specified postprocedural states (principal); T14.8XXA Other injury of unspecified body region, initial encounter; R23.8 Other skin changes
CPT/HCPCS: 99024

== ENCOUNTER → 2023-09-29 14:20 | Outpatient (BNVA) | payer OTHER, SELFPAY | PROVIDERS: PCP Orthopaedic Surgery; Visit Provider Physician Assistant | DX: Z48.01 Encounter for change or removal of surgical wound dressing (principal); R23.8 Other skin changes; Z98.890 Other specified postprocedural states | CPT/HCPCS: 99212 ==

== ENCOUNTER → 2023-09-30 13:01 | Outpatient (BNV) | payer OTHER, SELFPAY | PROVIDERS: PCP Nurse Practitioner Family; Visit Provider Internal Medicine | DX: R23.8 Other skin changes (principal); Z98.890 Other specified postprocedural states; S42.002K Fracture of unspecified part of left clavicle, subsequent encounter for fracture with nonunion | CPT/HCPCS: 99222 ==

== ENCOUNTER → 2023-09-30 13:01 | Outpatient (BNV) | payer OTHER, SELFPAY | PROVIDERS: Visit Provider Physician Assistant | DX: R07.89 Other chest pain (principal); Z95.828 Presence of other vascular implants and grafts | CPT/HCPCS: 99222 ==

== ENCOUNTER → 2023-09-30 13:01 | Outpatient (BNV) | payer OTHER, SELFPAY | PROVIDERS: Visit Provider Orthopaedic Surgery | DX: S41.002A Unspecified open wound of left shoulder, initial encounter (principal) | CPT/HCPCS: 11044; 97605; 99024; G0180 ==

== ENCOUNTER → 2023-10-01 09:22 | Outpatient (BNV) | payer OTHER, SELFPAY | PROVIDERS: PCP Nurse Practitioner Family; Visit Provider Internal Medicine | DX: R07.9 Chest pain, unspecified (principal) | CPT/HCPCS: 93010 ==

== ENCOUNTER 2023-10-01 09:40 | Inpatient (IN) | payer OTHER, SELFPAY ==
[2023-09-30] VITALS (14 sets, daily range): BP systolic 107–140; BP diastolic 67–94; PULSE 74–92; RESP 12–20; TEMP 36.2–36.6; O2SAT 93–98; BMI 36.5
[2023-09-30 13:56] LABS: INTERNATIONAL NORM RATIO 1.2 (0.9-1.1); Prothrombin Time 14.3 SEC (11.1-13.3)
[2023-09-30] MEDS: Lactated Ringers 1,000 ML 50 ML IVCONT (14:11)
--- NOTE | 2023-09-30 14:11 | MHC.SHP ---
Pre-Procedural Eval Section A - 24 Hr Update-Section A only Date of Service: 09/30/23 The patient is an INPATIENT: No Changes since office visit: No Cold of Flu in the past 2 weeks, No New Medical Problems, No Changes in Medication and No Patient answered all questions The patient has been examined within 24 hours of the surgical procedure. The History & Physical has been completed within 30 days and I have reviewed it.: Yes Section B - Complete if H&P > 30 days Chief Complaint: Other skin changes Allergies: Allergies Allergy/AdvReac Type Severity Reaction Status Date / Time No Known Allergies Allergy Verified 09/29/23 14:36 [No Known Allergies*] Plan I have reviewed the history and physical and performed a pertinent physical examination on my patient. No changes have occurred unless specified. Time Spent With Patient Time: Total time managing care of this patient today ____ minutes.
--- NOTE | 2023-09-30 15:38 | PM.OP ---
Brief Operative Note Date of Service: 09/30/23 Pre-op diagnosis: left clavicle open wound Post-op diagnosis: same Procedure: irrigation and debridement with wound vac placement Implants: Wound vac Surgeon: Davon Lin MD Anesthesia: GETA and local Was an Access Control Officer used for this Procedure?: Yes Access Control Officer: Noelle Jalloh Estimated blood loss (mL): 50 IV fluids (mL): 800 Pathology: other Condition: stable Disposition: PACU
[2023-09-30] MEDS: HYDROmorphone HCl 0.5 MG/0.5 ML SYRINGE IVPUSH (15:49)
[2023-09-30] MEDS: HYDROmorphone HCl 1 MG/ML SYRINGE IVPUSH (15:54)
[2023-09-30] MEDS: Lactated Ringers 1,000 ML 100 ML IVCONT (16:49)
[2023-09-30] MEDS: HYDROmorphone HCl 1 MG/ML SYRINGE 0.5 MG IVPUSH (17:15)
[2023-09-30] MEDS: HYDROmorphone HCl/NS 10 MG/50 ML PIGGYBACK 1.5 MG IV (17:16)
[2023-09-30] MEDS: vancomycin/NS 2,000 MG/500 ML PLAST..BAG 250 MG IV (19:21)
[2023-09-30] MEDS: Nicotine 21 MG PATCH.TD24 TRANSDERMA (19:28)
[2023-09-30 19:42] LABS: Creatinine Clr Calc Pharmacy 118.2; Estimated Glomerular Filt Rate > 60
[2023-09-30] MEDS: Docusate Sodium 100 MG CAPSULE PO (21:48)
[2023-09-30] MEDS: cloNIDine HCL 0.1 MG TABLET PO (21:48)
[2023-10-01] VITALS (8 sets, daily range): BP systolic 117–152; BP diastolic 62–91; PULSE 89–107; RESP 16–18; TEMP 36.1–36.8; O2SAT 93–96
--- NOTE | 2023-10-01 00:26 | PC.NURSE ---
2325 pt c/o of sharp right sided chest pain.vitals 133/83 p-85 sats 97% on 2L.EKG done was normal sinus rhythm.pain last about 10-15 minutes.assembly department supervisor Jelena notified and in to see pt.Noelle Jalloh notified and hospitalist consult ordered.
[2023-10-01] MEDS: QUEtiapine Fumarate 50 MG TABLET PO ×2 (02:03→20:09)
[2023-10-01] MEDS: HYDROmorphone HCl/NS 10 MG/50 ML PIGGYBACK 1.5 MG IV ×2 (04:01→20:19)
[2023-10-01 06:09] LABS: Estimated Glomerular Filt Rate > 60
[2023-10-01] MEDS: Lactated Ringers 1,000 ML 100 ML IVCONT ×2 (06:12→17:36)
[2023-10-01 06:19] LABS: INTERNATIONAL NORM RATIO 1.1 (0.9-1.1); Prothrombin Time 13.5 SEC (11.1-13.3)
--- NOTE | 2023-10-01 07:54 | PM.PNORT ---
Subjective Subjective Date of Service: 10/01/23 Interval history: POD1 s/p left clavicle irrigation and debridement with wound vac placement Patient is resting in bed No overnight events Pain is managed No additional complaints Physical Exam Vital Signs: Vital Signs: Last Vital Signs Temp 97 F 10/01/23 06:48 Pulse 97 10/01/23 06:48 Resp 17 10/01/23 06:48 BP 137/91 H 10/01/23 06:48 Pulse Ox 96 10/01/23 06:48 O2 Del Method Nasal Cannula 10/01/23 06:48 O2 Flow Rate 2 10/01/23 06:00 BMI result Body Mass Index 36.5 Const: General: cooperative, healthy appearing and no acute distress Resp: Effort & Inspection: normal respiratory effort and able to speak in complete sentences Cardio: Rate: regular rate Peripheral pulses: Peripheral pulses 2+ throughout GI: Palpation (GI): Soft to palpation Skin: Lesions: no lesions Rashes: no rashes Extrem: Other: left clavicle wound vac is functioning appropriately able to flex and extend at the wrist Able to move all digits Sensation and radial pulse is intact. Procedures Date of Service Date of Service: 10/01/23 Progress Note: A&P Assessment and plan (1) Skin breakdown: Status: Acute Assessment and Plan: Continue pain mgmnt Awaiting home unit for wound vac ID Consult PICC line placement Dispo planning-PICC line, pain management, ID Consult (2) Hematoma: Status: Acute Time Spent With Patient Time: Total time managing care of this patient today ____ minutes. Quality Stroke Does the patient have a stroke diagnosis?: No VTE Prior VTE?: Yes VTE Risk Level:: Medical - moderate - high VTE Device Contraindication: N/A - Device Ordered VTE Drug Contraindication: N/A - Med Ordered
--- NOTE | 2023-10-01 08:38 | P.OP_ITS ---
Operative Note Operative Note Date of Service: 09/30/23 Narrative: Date of Service: 09/30/23 Pre-op diagnosis: left clavicle open wound Post-op diagnosis: same Procedure: irrigation and debridement with wound vac placement Implants: Wound vac Surgeon: Davon Lin MD Anesthesia: GETA and local Was an Industrial Chemicals Supervisor used for this Procedure?: Yes Industrial Chemicals Supervisor: Noelle Jalloh Estimated blood loss (mL): 50 IV fluids (mL): 800 Pathology: other Condition: stable Disposition: PACU Procedure in detail: Patient was brought to the operating room and placed supine on the surgical table. He was prepped and draped in standard sterile fashion and a time out was called to identify proper site, proper procedure and IV antibiotics per weight were held. There was an open wound involving the lateral 70% of the incision. The remaining incision was opened up and cultures were taken. IV antibiotics were then administered. I then debrided with wound with a combination of a currette and a rengeur. There was exposed clavicle but there was minimal deep tracking and there was no jasmin puss. I then irrigated copiously with the pulse lavage and then placed a small sponge and a wound vac over the wound. The wound vac was applied in standard fashion and was holding suction. Prior to wound vac placement the skin edges were debrided down to bleeding bone. I was satisfied with the extent of debridement and the wound vac. An Adaptac dressing was placed between the clavicle and the wound vac. The suction was placed at 75 mm. The patient was then awakened from anesthesia and brought to the recovery room in stable condition. There were no known complications.
[2023-10-01] MEDS: Nicotine 21 MG PATCH.TD24 TRANSDERMA (08:39)
[2023-10-01] MEDS: Docusate Sodium 100 MG CAPSULE PO ×2 (08:40→20:09)
[2023-10-01] MEDS: vancomycin HCL 1,250 MG in 0.9 % Sodium Chloride 250 ML 166.67 MG IV (08:40)
--- NOTE | 2023-10-01 09:22 | ECG_ITS ---
Test Reason : chest pain Blood Pressure : / mmHG Vent. Rate : 085 BPM Atrial Rate : 085 BPM P-R Int : 152 ms QRS Dur : 094 ms QT Int : 374 ms P-R-T Axes : 066 051 031 degrees QTc Int : 445 ms Normal sinus rhythm Normal ECG When compared with ECG of 30-SEP-2023 23:27, No significant changes seen Referred By: Davon Lin Electronically Signed By:RACHEL CUBA
[2023-10-01] MEDS: Enoxaparin Sodium 30 MG/0.3 ML SYRINGE SUBCUT (09:46)
--- NOTE | 2023-10-01 10:29 | MHC.CM.PN ---
CM MET WITH PT AT BEDSIDE. PT LIVES WITH MOTHER. INDEPENDENT AT BASELINE BUT MAY NEED MORE ASSIST S/P SURGERY. WILLING TO COMPLETE HCP PCP DR. HURTADO AT [facility]. DP: PT MAY NEED STR PER P.T., WILL CONTINUE TO ASSESS FOR DC NEEDS. PT MAY NEED RIDE HOME
--- NOTE | 2023-10-01 11:10 | P.CONHOSP_ITS ---
History of Present Illness Data of Consult Service Date: 10/01/23 Requesting physician: Noelle Jalloh Primary Care Provider: Unknown Physician HPI Reason for consult: chest pain 48-year-old male with history of prediabetes, PTSD, history of polysubstance abuse, DVT s/p IVC filter and PE on Coumadin admitted to Orthopedic surgery for management of left clavicle fracture with consult placed to hospitalist service for evaluation of chest pain. The patient reports this morning developed sudden onset right sided chest pressure described as a non radiating pressure that lasted for about 20 minutes before resolving spontaneously. No associated diaphoresis, sob, lightheadedness, nausea/vomiting. Not pleuritic in nature. He feels it may have been gas. States he has had similar pain in the past that caused him to pass out. There was no syncope or syncope today. Currently asymptomatic. EKG at the time showed NSR, rate 85, no st/twave abnormality. Review of Systems 2 Review of Systems: Yes all other systems are reviewed and are negative [facility] Medical History Back pain PTSD (post-traumatic stress disorder) Pre-diabetes Migraine Depression Rhabdomyolysis Chest pain Lumbar radiculopathy Pulmonary embolism Polysubstance abuse DVT (deep venous thrombosis) Surgical History History of surgery S/P insertion of IVC (inferior vena caval) filter Hx of appendectomy History of open reduction and internal fixation (ORIF) procedure Hx of meniscectomy of right knee Social History Household Members: Family Household Members Other:: ALESHA-JENN Housing: House Are you a primary healthcare consultant to a significant other at home: No Do you presently have visiting nurse or other home services: No Alcohol intake: never Patient Tobacco Use Status: Former Tobacco user Quit Date: 1 month Tobacco use type: Cigarette Cigarette Packs Per Day: 0.5 Cigarettes Per Day: 10.0 Years Smoked: 30 Second Hand Smoke Exposure: No Use of substances other than those prescribed or required for medical reasons: No Are you DNR?: No Advance Directives: No Advance Directives Information Provided: Yes Advance Directives Date on File: 10/17/21 service: No Current occupational status: unemployed Meds Allergies Allergy/AdvReac Type Severity Reaction Status Date / Time No Known Allergies Allergy Verified 09/29/23 14:36 [No Known Allergies*] Active Medications: Current Medications Clonidine HCl (Clonidine Hcl 0.1 Mg Tablet) 0.1 mg PO BEDTIME [facility]; Protocol Last Admin: 09/30/23 21:48 Dose: 0.1 mg Docusate Sodium (Docusate Sodium 100 Mg Capsule) 100 mg PO BID [facility] Last Admin: 10/01/23 08:40 Dose: 100 mg Enoxaparin Sodium (Enoxaparin Sodium 30 Mg/0.3 Ml Syringe) 30 mg SUBCUT Q24H [facility] Last Admin: 10/01/23 09:46 Dose: 30 mg Hydromorphone HCl (Hydromorphone Hcl 1 Mg/Ml Syringe) 0.5 mg IVPUSH Q5M PRN; Protocol PRN Reason: Pain, Severe (Pain Scale 7-10) Last Admin: 09/30/23 17:15 Dose: 0.5 mg Hydromorphone HCl (Dilaudid) 10 mg in 50 mls @ 0 mls/hr IV .Q0M [facility]; Protocol Last Admin: 10/01/23 04:01 Dose: 0.3 mg/hr, 1.5 mls/hr Lactated Ringer's (Lr) 1,000 mls @ 100 mls/hr IVCONT .Q10H [facility] Stop: 10/01/23 15:43 Last Admin: 10/01/23 06:12 Dose: 100 mls/hr Vancomycin HCl 1,250 mg/ (Sodium Chloride) 250 mls @ 166.667 mls/hr IV Q12H [facility] Last Infusion: 10/01/23 10:13 Dose: Infused Naloxone HCl (Naloxone Hcl 0.4 Mg/Ml Vial) 0.2 mg IVPUSH Q2M PRN PRN Reason: Excessive sedation or RR < 8 Nicotine (Nicotine 21 Mg Patch.Td24) 21 mg TRANSDERMA DAILY [facility] Last Admin: 10/01/23 08:39 Dose: 21 mg Ondansetron HCl (Ondansetron Hcl 4 Mg/2 Ml Vial) 4 mg IVPUSH Q8H PRN PRN Reason: Nausea and Vomiting Pharmacy Consult (Consult Rx Vancomycin Dosing) 1 each MISCELLANE DAILY PRN PRN Reason: Consult order Quetiapine Fumarate (Quetiapine Fumarate 50 Mg Tablet) 50 mg PO BEDTIME PRN PRN Reason: insomnia Last Admin: 10/01/23 02:03 Dose: 50 mg Sodium Chloride (0.9 % Sodium Chloride Flush 3 Ml Syringe) 3 ml IVFLUSH QSHIFT [facility] Last Admin: 10/01/23 08:41 Dose: Not Given Trazodone HCl (Trazodone Hcl 100 Mg Tablet) 100 mg PO BEDTIME PRN PRN Reason: Insomnia Home Medications Medication Instructions Recorded Confirmed Last Taken Type clonidine HCl 0.1 mg tablet 1 tab PO BEDTIME 10/16/21 09/30/23 10/15/21 History quetiapine 50 mg tablet 50 mg PO BEDTIME PRN insomnia 10/17/22 09/30/23 Unknown History trazodone 100 mg tablet 100 mg PO BEDTIME PRN Insomnia 08/07/23 09/30/23 Unknown History warfarin 5 mg tablet 7.5 mg PO QPM 08/07/23 09/30/23 08/19/23 History Physical Exam 2 Vital Signs and Narrative: Vital Signs: Last Vital Signs Temp 97 F 10/01/23 06:48 Pulse 97 10/01/23 06:48 Resp 17 10/01/23 06:48 BP 137/91 H 10/01/23 06:48 Pulse Ox 96 10/01/23 06:48 O2 Del Method Nasal Cannula 10/01/23 06:48 O2 Flow Rate 2 10/01/23 06:00 BMI result Body Mass Index 36.5 Constitutional - Awake and Alert, No apparent distress Eyes - PERRLA, EOMI Cardiovascular - S1S2, RRR, No edema Respiratory - Normal lung expansion, Normal respiratory effort, No respiratory distress, CTA bilaterally Gastrointestinal - NT / ND; +BS; No rebound or guarding Extremities - no calf tenderness bilaterally, no swelling Skin - Warm/Dry Neurological - Alert & oriented x3 Results Labs 10/01/23 05:19 Labs: Laboratory Results - last 24 hr 09/30/23 09/30/23 10/01/23 13:43 19:20 05:19 Hold Purple Top SEE NOTE PT 14.3 H D 13.5 H INR 1.2 H 1.1 Estim Creat Clear Calc 118.2 116.0 Estimated GFR > 60 > 60 Assessment and Plan (1) Atypical chest pain: Status: Acute Plan 48-year-old male with history of prediabetes, PTSD, history of polysubstance abuse, DVT s/p IVC filter and PE on Coumadin admitted to Orthopedic surgery for management of left clavicle fracture with consult placed to hospitalist service for evaluation of chest pain. #Atypical chest pain -resolved, atypical in nature -EKG non ischemic, troponin below detectable limits -etiology unclear, VSS stable, currently asymptomatic- unlikely to be acute PE, continue AC -no additional intervention recommended at this time Thank you for allowing me to participate in this consult. Signing off at this time. Please do not hesitate to call for further questions.
[2023-10-01 12:35] LABS: Troponin-I High Sensitivity < 2.7 ng/L (<3.5-35.0)
--- NOTE | 2023-10-01 14:21 | HO.POSTANES ---
Post Anesthesia Evaluation Post Anesthesia Evaluation Date of Service: 10/01/23 Vital Signs: Vital Signs Temp Pulse Resp BP Pulse Ox O2 Del Method O2 Flow Rate 10/01/23 06:48 97 F 97 17 137/91 H 96 Nasal Cannula 10/01/23 06:00 97 18 121/62 95 Nasal Cannula 2 10/01/23 03:30 97.5 F 99 18 117/78 93 Anesthesia: General Mental Status: Awake Pain Control: Satisfactory (difficulty controlling pain) Nausea/Vomiting: None Hydration: Adequate Anesthesia-Related Issues: No Anes. Related Issues
--- NOTE | 2023-10-01 15:12 | P.CNID_ITS ---
History of Present Illness Data of Consult Service Date: 10/01/23 Requesting physician: Davon Lin Primary Care Provider: CARLA Michelle HPI Reason for consult: clavicle infection bone concern He presents for nonhealing left clavicle wound with open bone. Cultures are pending. He had initial injury 4 years ago and then ORIF and not healing. Review of Systems 2 Review of Systems: Yes all other systems are reviewed and are negative PMFSH Past Medical History Medical History Back pain PTSD (post-traumatic stress disorder) Pre-diabetes Migraine Depression Rhabdomyolysis Chest pain Lumbar radiculopathy Pulmonary embolism Polysubstance abuse DVT (deep venous thrombosis) Family History Family history: reviewed and not pertinent Surgical History Surgical History History of surgery S/P insertion of IVC (inferior vena caval) filter Hx of appendectomy History of open reduction and internal fixation (ORIF) procedure Hx of meniscectomy of right knee Social History Social History Household Members: Family Household Members Other:: MOM-JENN Housing: House Are you a primary care administrative tech to a significant other at home: No Do you presently have visiting nurse or other home services: No Alcohol intake: never Patient Tobacco Use Status: Former Tobacco user Quit Date: 1 month Tobacco use type: Cigarette Cigarette Packs Per Day: 0.5 Cigarettes Per Day: 10.0 Years Smoked: 30 Second Hand Smoke Exposure: No Use of substances other than those prescribed or required for medical reasons: No Are you DNR?: No Advance Directives: No Advance Directives Information Provided: Yes Advance Directives Date on File: 10/17/21 service: No Current occupational status: unemployed Meds Allergies Allergy/AdvReac Type Severity Reaction Status Date / Time No Known Allergies Allergy Verified 09/29/23 14:36 [No Known Allergies*] Active Medications: Current Medications Clonidine HCl (Clonidine Hcl 0.1 Mg Tablet) 0.1 mg PO BEDTIME [facility]; Protocol Last Admin: 09/30/23 21:48 Dose: 0.1 mg Docusate Sodium (Docusate Sodium 100 Mg Capsule) 100 mg PO BID [facility] Last Admin: 10/01/23 08:40 Dose: 100 mg Enoxaparin Sodium (Enoxaparin Sodium 30 Mg/0.3 Ml Syringe) 30 mg SUBCUT Q24H [facility] Last Admin: 10/01/23 09:46 Dose: 30 mg Hydromorphone HCl (Dilaudid) 10 mg in 50 mls @ 0 mls/hr IV .Q0M [facility]; Protocol Last Admin: 10/01/23 04:01 Dose: 0.3 mg/hr, 1.5 mls/hr Lactated Ringer's (Lr) 1,000 mls @ 100 mls/hr IVCONT .Q10H [facility] Stop: 10/01/23 15:43 Last Admin: 10/01/23 06:12 Dose: 100 mls/hr Vancomycin HCl 1,250 mg/ (Sodium Chloride) 250 mls @ 166.667 mls/hr IV Q12H [facility] Last Infusion: 10/01/23 10:13 Dose: Infused Naloxone HCl (Naloxone Hcl 0.4 Mg/Ml Vial) 0.2 mg IVPUSH Q2M PRN PRN Reason: Excessive sedation or RR < 8 Nicotine (Nicotine 21 Mg Patch.Td24) 21 mg TRANSDERMA DAILY [facility] Last Admin: 10/01/23 08:39 Dose: 21 mg Ondansetron HCl (Ondansetron Hcl 4 Mg/2 Ml Vial) 4 mg IVPUSH Q8H PRN PRN Reason: Nausea and Vomiting Oxycodone HCl (Oxycodone Hcl Immed Release 5 Mg Tablet) 10 mg PO Q4H PRN PRN Reason: Pain, Moderate(Pain Scale 4-6) Pharmacy Consult (Consult Rx Vancomycin Dosing) 1 each MISCELLANE DAILY PRN PRN Reason: Consult order Quetiapine Fumarate (Quetiapine Fumarate 50 Mg Tablet) 50 mg PO BEDTIME PRN PRN Reason: insomnia Last Admin: 10/01/23 02:03 Dose: 50 mg Sodium Chloride (0.9 % Sodium Chloride Flush 3 Ml Syringe) 3 ml IVFLUSH QSHIFT [facility] Last Admin: 10/01/23 08:41 Dose: Not Given Trazodone HCl (Trazodone Hcl 100 Mg Tablet) 100 mg PO BEDTIME PRN PRN Reason: Insomnia Home Medications Medication Instructions Recorded Confirmed Last Taken Type clonidine HCl 0.1 mg tablet 1 tab PO BEDTIME 10/16/21 09/30/23 10/15/21 History quetiapine 50 mg tablet 50 mg PO BEDTIME PRN insomnia 10/17/22 09/30/23 Unknown History trazodone 100 mg tablet 100 mg PO BEDTIME PRN Insomnia 08/07/23 09/30/23 Unknown History warfarin 5 mg tablet 7.5 mg PO QPM 08/07/23 09/30/23 08/19/23 History Physical Exam 2 Vital Signs: Vital Signs: Last Vital Signs Temp 97 F 10/01/23 06:48 Pulse 96 10/01/23 14:54 Resp 18 10/01/23 14:54 BP 140/78 H 10/01/23 14:54 Pulse Ox 95 10/01/23 14:54 O2 Del Method Room Air 10/01/23 14:54 O2 Flow Rate 2 10/01/23 06:00 BMI result Body Mass Index 36.5 Const: General: cooperative HEENT: Head: Yes normal to inspection Face and sinus: Yes normal facial exam Mouth: Normal oral and palatal mucosa present Teeth and gingiva: d entition normal Eyes: General: appearance normal, both eyes and all related structures P upils: Equal, round and reactive pupils present Resp: Effort & Inspection: normal respiratory effort Cardio: Rate: regular rate Rhythm: regular rhythm GI: Palpation (GI): Soft to palpation and nontender : General: Yes no CVA tenderness Back/Spine/Pelvis: Back: no CVA tenderness Skin: General skin exam: no rashes or lesions noted Neuro: General: moves all extremities Cranial nerves: Yes Equal, round and reactive pupils present Extrem: Other: left shoulder woundvac,mild redness surrounding Psych: Appearance: grossly normal Results Labs 10/01/23 05:19 Labs: BMP 09/30/23 10/01/23 19:20 05:19 Creatinine 1.09 1.11 Microbiology Microbiology Results: Microbiology 09/30/23 Unknown Shoulder Left Gram Stain - Final 09/30/23 Unknown Shoulder Left Routine Culture - Preliminary Culture in progress. 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 Culture is pending but even if negative would favor six weeks IV Vancomycin unless culture tells otherwise. I discussed this with Dr Lin.
[2023-10-01 18:43] LABS: Vancomycin Random 9.5 mcg/mL (15-20)
--- NOTE | 2023-10-01 19:07 | HE.PHANOTE ---
RE: VANCO patients level came back this evening at 9.5. Patient however has only gotten a proper load and 1 dose of 1250 mg at this time. will increase patients dose to 1500 mg Q12H due to indication. 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 Predicted AUC 487. next level @1800 to ensure safety vs efficacy as patient renal is unstable.
[2023-10-01] MEDS: cloNIDine HCL 0.1 MG TABLET PO (20:09)
[2023-10-01] MEDS: vancomycin HCL 1,500 MG in 0.9 % Sodium Chloride 500 ML 333.33 MG IV (20:09)
[2023-10-01] MEDS: traZODone HCL 100 MG TABLET PO (23:42)
[2023-10-02] VITALS (12 sets, daily range): BP systolic 111–136; BP diastolic 58–82; PULSE 65–96; RESP 15–20; TEMP 36–36.8; O2SAT 92–99
[2023-10-02 06:03] LABS: Creatinine Clr Calc Pharmacy 127.5; Estimated Glomerular Filt Rate > 60
[2023-10-02] MEDS: vancomycin HCL 1,500 MG in 0.9 % Sodium Chloride 500 ML 333.33 MG IV ×2 (07:51→20:09)
[2023-10-02] MEDS: HYDROmorphone HCl/NS 10 MG/50 ML PIGGYBACK 1.5 MG IV (08:06)
--- NOTE | 2023-10-02 08:53 | P.PNOP_ITS ---
Subjective Subjective Date of Service: 10/02/23 Interval history: POD2 s/p left clavicle irrigation and debridement with wound vac placement Patient is resting in bed No overnight events Pain is better managed No additional complaints Physical Exam Vital Signs: Vital Signs: Last Vital Signs Temp 97.6 F 10/02/23 07:48 Pulse 90 10/02/23 07:48 Resp 18 10/02/23 07:48 BP 133/62 10/02/23 07:48 Pulse Ox 93 10/02/23 07:48 O2 Del Method Room Air 10/02/23 07:48 O2 Flow Rate 2 10/01/23 06:00 BMI result Body Mass Index 36.5 Const: General: cooperative, healthy appearing and no acute distress Resp: Effort & Inspection: normal respiratory effort and able to speak in complete sentences Cardio: Rate: regular rate Peripheral pulses: Peripheral pulses 2+ thr oughout GI: Palpation (GI): Soft to palpation Skin: Lesions: no lesions Rashes: no rashes Extrem: Other: left clavicle wound vac is functioning appropriately able to flex and extend at the wrist Able to move all digits Sensation and radial pulse is intact. Procedures Date of Service Date of Service: 10/02/23 Progress Note: A&P Assessment and plan (1) Skin breakdown: Status: Acute Assessment and Plan: Continue pain mgmnt Awaiting home unit for wound vac ID recommends 6 weeks abx PICC line placement Dispo planning-PICC line, pain management, ID Consult Need for continued inpatient stay: rehab placement and wean [employer]IST pump (2) Hematoma: Status: Acute Time Spent With Patient Time: Total time managing care of this patient today ____ minutes. Quality Stroke Does the patient have a stroke diagnosis?: No VTE Prior VTE?: Yes VTE Risk Level:: Medical - moderate - high VTE Device Contraindication: N/A - Device Ordered VTE Drug Contraindication: N/A - Med Ordered
--- NOTE | 2023-10-02 10:10 | P.PICC_ITS ---
PICC Line Insertion NPICC Diagnosis: Left Shoulder Infection Indication: intermediate manager Antibiotics Pertinent Labs: Reviewed Technique: Following informed consent including risks, benefits and alternatives and using sterile technique including cap and mask, sterile gown, glove and drape, the right arm was prepped and draped in the usual sterile fashion of full barrier technique with CHG. Following completion of [place] Protocol the skin and soft tissues were anesthetized with 1% Lidocaine plain. Using ultrasound guidance, the right basilic vein access was obtained in a single attempt by this RN. Over an 0.018 wire through peel-away sheath, a 4 welsh single lumen PASV PICC line was positioned. Catheter length is 43 cm internal length, the [employer] length is at the 0 cm external radha, for a total trimmed length of 43 cm. The procedure was performed in S272. Tip verification was performed by Rosy Cardona with Sherlock 3CG. Tip located in SVC. Ultrasound was used to document vein patency and for needle entry. A formal ultrasound picture and cardiac rhythm strip was recorded. Vascular Sanitation Worker has released the line for use and it is currently dressed with a StatLock, Tegaderm, and CHG disc. Verification has been performed for blood return and line patency. Arm Circumference: 43.5 cm Equipment: I[employer]ica PowerPICC Solo Catheter with Sherlock 3 CG Tip Catheter Type: 4 welsh single lumen PASV PICC Lot #: [id number]
[2023-10-02] MEDS: Nicotine 21 MG PATCH.TD24 TRANSDERMA (10:28)
[2023-10-02] MEDS: Enoxaparin Sodium 30 MG/0.3 ML SYRINGE SUBCUT (10:29)
--- NOTE | 2023-10-02 13:17 | MHC.CM.PN ---
PT IS AGREEABLE TO GO HOME WITH HOME INFUSION AND VNA FOR IV RX. HAS BEEN ACCEPTED BY [facility]. CM WILL CONTINUE TO FOLLOW FOR ANY CHANGE IN DC PLAN/NEEDS.
--- NOTE | 2023-10-02 15:09 | HO.ANESPROP2 ---
HPI - Anesthesia Eval Consult details Narrative: 48 yo male patient for Closure of Left clavicle wound. S/p I&D and wound vac placement 09/30/23 [facility] Active Problems Active Problems: All Active Problems (Updated 10/02/23 @ 15:12 by Sahara Teresa MD) Atypical chest pain (Acute) Skin breakdown (Acute) Hematoma (Acute) S/P hardware removal (Acute ~08/27/23) H/o Pulmonary embolism (Acute) Lumbar radiculopathy (Acute) Fracture of left clavicle with nonunion (Acute) COVID-19 (Acute) Orthopedic hardware present (Acute) Clavicle fracture (Acute) Status post laparoscopic appendectomy (Acute) Appendicitis (Acute) Acute appendicitis (Acute) Obesity-BMI 36.5 Past Medical History Medical History Back pain PTSD (post-traumatic stress disorder) Pre-diabetes Migraine Depression Rhabdomyolysis Chest pain Lumbar radiculopathy Pulmonary embolism Polysubstance abuse DVT (deep venous thrombosis) Family History Family history of problems with anesthesia: No Surgical History Surgical History History of surgery S/P insertion of IVC (inferior vena caval) filter Hx of appendectomy History of open reduction and internal fixation (ORIF) procedure Hx of meniscectomy of right knee History of Problems with Anesthesia: No Social History Social History Household Members: Spouse Household Members Other:: MOM-JENN Housing: House Are you a primary care transport nurse to a significant other at home: No Do you presently have visiting nurse or other home services: No Alcohol intake: never Patient Tobacco Use Status: Former Tobacco user Quit Date: 1 month Tobacco use type: Cigarette Cigarette Packs Per Day: 0.5 Cigarettes Per Day: 10.0 Years Smoked: 30 Second Hand Smoke Exposure: No Use of substances other than those prescribed or required for medical reasons: No Currently Displaying Signs/Symptoms of Drug Intoxication Withdrawal: No Have you been hit, kicked, punched, or otherwise hurt by someone within the past year? If so, by whom?: No Do you feel safe in your current relationship?: Yes Is there a partner from a previous relationship who is making you feel unsafe now?: No Are you made to feel afraid or neglected: No Are you DNR?: No Advance Directives: No Advance Directives Information Provided: Yes Advance Directives Date on File: 10/17/21 Recently lost weight without trying: No Poor oral hygiene: No service: No Current occupational status: unemployed Meds Allergies Allergy/AdvReac Type Severity Reaction Status Date / Time No Known Allergies Allergy Verified 09/29/23 14:36 [No Known Allergies*] Active Medications: Current Medications Acetaminophen (Acetaminophen 325 Mg Tablet) 650 mg PO Q6H PRN PRN Reason: Pain, Mild (Pain Scale 1-3) Clonidine HCl (Clonidine Hcl 0.1 Mg Tablet) 0.1 mg PO BEDTIME [facility]; Protocol Last Admin: 10/01/23 20:09 Dose: 0.1 mg Docusate Sodium (Docusate Sodium 100 Mg Capsule) 100 mg PO BID [facility] Last Admin: 10/02/23 10:29 Dose: Not Given Enoxaparin Sodium (Enoxaparin Sodium 30 Mg/0.3 Ml Syringe) 30 mg SUBCUT Q24H [facility] Last Admin: 10/02/23 10:29 Dose: 30 mg Vancomycin HCl 1,500 mg/ (Sodium Chloride) 500 mls @ 333.333 mls/hr IV Q12H [facility] Last Infusion: 10/02/23 09:35 Dose: Infused Nicotine (Nicotine 21 Mg Patch.Td24) 21 mg TRANSDERMA DAILY [facility] Last Admin: 10/02/23 10:28 Dose: 21 mg Ondansetron HCl (Ondansetron Hcl 4 Mg/2 Ml Vial) 4 mg IVPUSH Q8H PRN PRN Reason: Nausea and Vomiting Oxycodone HCl (Oxycodone Hcl Immed Release 5 Mg Tablet) 10 mg PO Q4H PRN PRN Reason: Pain, Moderate(Pain Scale 4-6) Pharmacy Consult (Consult Rx Vancomycin Dosing) 1 each MISCELLANE DAILY PRN PRN Reason: Consult order Quetiapine Fumarate (Quetiapine Fumarate 50 Mg Tablet) 50 mg PO BEDTIME PRN PRN Reason: insomnia Last Admin: 10/01/23 20:09 Dose: 50 mg Sodium Chloride (0.9 % Sodium Chloride Flush 3 Ml Syringe) 3 ml IVFLUSH QSHIFT [facility] Last Admin: 10/02/23 07:37 Dose: Not Given Trazodone HCl (Trazodone Hcl 100 Mg Tablet) 100 mg PO BEDTIME PRN PRN Reason: Insomnia Last Admin: 10/01/23 23:42 Dose: 100 mg Home Medications Medication Instructions Recorded Confirmed Last Taken Type clonidine HCl 0.1 mg tablet 1 tab PO BEDTIME 10/16/21 09/30/23 10/15/21 History quetiapine 50 mg tablet 50 mg PO BEDTIME PRN insomnia 10/17/22 09/30/23 Unknown History trazodone 100 mg tablet 100 mg PO BEDTIME PRN Insomnia 08/07/23 09/30/23 Unknown History warfarin 5 mg tablet 7.5 mg PO QPM 08/07/23 09/30/23 08/19/23 History Exam Height,Weight and Vital Signs: Height 6 ft 2 in Weight 128.82 kg Last Vital Signs Temp 98.2 F 10/02/23 14:54 Pulse 81 10/02/23 14:54 Resp 16 10/02/23 14:54 BP 122/80 10/02/23 14:54 Pulse Ox 96 10/02/23 14:54 O2 Del Method Room Air 10/02/23 14:54 O2 Flow Rate 2 10/01/23 06:00 Pertinent Lab Results Pertinent Lab Results: Laboratory Tests 09/30/23 09/30/23 10/01/23 13:43 19:20 05:19 Hold Purple Top SEE NOTE PT 14.3 H D 13.5 H INR 1.2 H 1.1 Creatinine 1.09 1.11 Estim Creat Clear Calc 118.2 116.0 Estimated GFR > 60 > 60 Troponin I High Sens Random Vancomycin 10/01/23 10/01/23 10/02/23 12:08 18:11 05:03 Hold Purple Top SEE NOTE PT INR Creatinine 1.01 Estim Creat Clear Calc 127.5 Estimated GFR > 60 Troponin I High Sens < 2.7 D Random Vancomycin 9.5 L Airway Mallampati Class: II TM Dist: >3cm Neck ROM: Full Loose/Missing/Broken Teeth: No (Denies broken, loose, missing teeth) Heart: RRR Lungs: CTAB Assessment and Plan Assessment Anesthesia Assessment: Anesthesia Plan Discussed and Chart Reviewed Final Anesthetic Review Family History of Problems with Anesthesia: No History of Problems with Anesthesia: No NPO: Yes ASA Class: III and Emergency Final Preanesthetic Review: No Changes in Pt Med Stat, Meds/Allgs Chart Reviewed, Consent Obtained/Reviewed and Anes Risks/Benef Reviewed Patient Risk: Intermediate Procedure Risk: Low Assessment/Block/Sedation in SS: Assess/Block/Sedation-SS Anesthetic Plan Anesthetic Plan: GA Disposition: Standard PACU and Inp. Admit - Standard Bed
--- NOTE | 2023-10-02 15:47 | MHC.SHP ---
Pre-Procedural Eval Section A - 24 Hr Update-Section A only Date of Service: 10/02/23 The patient is an INPATIENT: Yes Changes since office visit: No Cold of Flu in the past 2 weeks, No New Medical Problems, No Changes in Medication and No Patient answered all questions The patient has been examined within 24 hours of the surgical procedure. The History & Physical has been completed within 30 days and I have reviewed it.: Yes Section B - Complete if H&P > 30 days Chief Complaint: right clavicle wound Allergies: Allergies Allergy/AdvReac Type Severity Reaction Status Date / Time No Known Allergies Allergy Verified 09/29/23 14:36 [No Known Allergies*] Plan I have reviewed the history and physical and performed a pertinent physical examination on my patient. No changes have occurred unless specified. Time Spent With Patient Time: Total time managing care of this patient today ____ minutes.
[2023-10-02 18:38] LABS: Vancomycin Random 12.5 mcg/mL (15-20)
--- NOTE | 2023-10-02 18:45 | HE.PHANOTE ---
RE [facility] Patients level came back this eveing at 12.5. Will continue with current dose of 1500 mg Q12H. NExt level 10/02 @1800 to ensure safety vs efficacy. Renal (scr) down to 1.01 from 1.11 yesterday. Predicted AUC 486
[2023-10-02] MEDS: 0.9 % Sodium Chloride Flush 3 ML SYRINGE IVFLUSH (20:10)
[2023-10-02] MEDS: oxyCODONE HCl Immed Release 5 MG TABLET 10 MG PO (20:14)
[2023-10-02] MEDS: Acetaminophen 325 MG TABLET 650 MG PO (20:14)
[2023-10-02] MEDS: Lactated Ringers 1,000 ML 50 ML IVCONT (20:14)
[2023-10-03] MEDS: QUEtiapine Fumarate 50 MG TABLET PO (00:51)
[2023-10-03 06:01] LABS: Estimated Glomerular Filt Rate > 60
--- NOTE | 2023-10-03 06:20 | PC.NURSE ---
pt found this morning with wound vac unhooked and machine turned off. when asked, pt reports he thinks he unhooked the wound vac at night when going to bathroom and turned off machine because of the sound (probable the alarm). pt educated on importance of keeping the wound vac hooked on and turned on. dr ayoub notified. pt will need re education
--- NOTE | 2023-10-03 07:51 | PM.DS ---
DS: Providers Provider Date of Service: 10/03/23 Primary care physician: CARLA Michelle Consults: 10/01/23 00:02 Consult to Hospitalist Routine Comment: Consulting Provider: Hospitalist Reason For Exam: Right sided chest pain 10/01/23 07:57 Consult to Infectious Diseases Routine Consulting Provider: [facility] Infectious Disease Reason for consultation: PICC line placement open left clavicle wound with wound vac placement DS: Diagnosis Discharge Diagnosis (1) Skin breakdown: Status: Acute (2) Hematoma: Status: Acute DS: Summary Hospital Course Hospital Course: The patient underwent a successful Debridement left clavicle wound with wound vac placement on 09/29/23 followed by removal of wound vac and wound closure and placement of prevena 10/02/23, was transferred to PACU and then to the floor to recover. During their stay, their vitals were stable, afebrile at 97.5 POD 1 he was started on Lovenox and resumed coumadin as well that evening. Dressing: Patient has a Prevena negative pressure dressing applied, this should remain intact and on at all times. If any concerns with leaking or blockage, please contact Orthopedic office. POD 3 10/02/23 PIcc line was placed: PICC Line Insertion NPICC Diagnosis: Left Shoulder Infection Indication: event mgr Antibiotics Pertinent Labs: Reviewed Technique: Following informed consent including risks, benefits and alternatives and using sterile technique including cap and mask, sterile gown, glove and drape, the right arm was prepped and draped in the usual sterile fashion of full barrier technique with CHG. Following completion of [place] Protocol the skin and soft tissues were anesthetized with 1% Lidocaine plain. Using ultrasound guidance, the right basilic vein access was obtained in a single attempt by this RN. Over an 0.018 wire through peel-away sheath, a 4 occitan single lumen PASV PICC line was positioned. Catheter length is 43 cm internal length, the external length is at the 0 cm external radha, for a total trimmed length of 43 cm. The procedure was performed in S272. Tip verification was performed by Rosy Cardona with Terrance 3CG. Tip located in SVC. Ultrasound was used to document vein patency and for needle entry. A formal ultrasound picture and cardiac rhythm strip was recorded. Vascular Roll Capper has released the line for use and it is currently dressed with a StatLock, Tegaderm, and CHG disc. Verification has been performed for blood return and line patency. 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 Culture positive for Staph Aureus- would favor six weeks IV Daptomycin Picc Line / iv abx Orders: Flush PICC line with 10 cc of normal saline 1 times a day Routine discharge flushing with 10 mL of normal saline after blood specimen withdrawal, medication administration or post transfusion flushing Weekly CBC w diff and CMP Time Attestation Discharge coordination time: Less than 30 minutes Quality: Safe Use of Opioids Does Pt have an Active Cancer Diagnosis on the Problem List?: No Quality: Stroke Does the patient have a stroke diagnosis?: No Physical Exam Vital Signs: Vital Signs: Last Vital Signs Temp 97.5 F 10/02/23 20:00 Pulse 96 10/02/23 20:00 Resp 16 10/02/23 20:00 BP 130/69 10/02/23 20:00 Pulse Ox 94 10/02/23 20:00 O2 Del Method Room Air 10/02/23 20:00 O2 Flow Rate 6 10/02/23 17:58 BMI result Body Mass Index 36.5 DS: Data Data Completed and Pending Completed studies during hospitalization [Text1]: Procedures Removal of Internal Fixation Device from Left Clavicle, Open Approach (10/16/21) Reposition Left Clavicle with Internal Fixation Device, Open Approach (10/16/21) Resection of Appendix, Percutaneous Endoscopic Approach (04/26/21) Labs on day of discharge: Laboratory Results - last 24 hr 10/02/23 10/03/23 18:07 05:08 Creatinine 1.11 Estim Creat Clear Calc 116.0 Estimated GFR > 60 Random Vancomycin 12.5 L Preliminary micro results at discharge 09/30/23 Unknown Routine Culture - Preliminary Shoulder Left Staphylococcus aureus Discharge Plan Discharge Patient Disposition: Home, Self-Care Referrals: Yuli Sung PA-C [Physician Spreader] - 1 Week (10/07/23 14:30 [facility] Orthopedic Surgeons Yuli Sung PA-C) Discharge Medications: New docusate sodium 100 mg Capsule 100 mg PO BID 7 Days Qty: 14 0RF oxycodone 10 mg tablet 10 mg PO Q4H PRN (Reason: Pain, Moderate(Pain Scale 4-6)) 7 Days Qty: 42 0RF Rx Instructions: Partial Fill upon patient request. acetaminophen 325 mg Tablet 650 mg PO Q6H PRN (Reason: Pain, Mild (Pain Scale 1-3)) 30 Days Qty: 240 0RF Continued clonidine HCl 0.1 mg tablet 1 tab PO BEDTIME trazodone 100 mg tablet 100 mg PO BEDTIME PRN (Reason: Insomnia) warfarin 5 mg tablet 7.5 mg PO QPM quetiapine 50 mg tablet 50 mg PO BEDTIME PRN (Reason: insomnia) Discontinued acetaminophen [Tylenol Extra Strength] 500 mg tablet 500 mg PO Q4-6H PRN (Reason: fever or pain) 30 Days Qty: 168 0RF doxycycline hyclate 100 mg capsule 100 mg PO BID 10 Days Qty: 20 0RF oxycodone-acetaminophen [Percocet] 5-325 mg tablet 1 tab PO Q6H PRN (Reason: pain (scale score 4-6)) 7 Days Qty: 28 0RF Rx Instructions: Partial Fill upon patient request. Discharge Orders: Discharge Order (Routine); Ordered 10/03/23 Ordered By: Noelle Jalloh Diet: Regular diet Activity Restrictions/Additional Instructions: -keep prevena/wound vac dressing on at all times. -Machine should be on at all times-any concerns please contact our office -Keep the dressing clean , dry and intact. -Follow up with Orthopedics on 10/07/23 14:30 [facility] Orthopedic Surgeons Yuli Sung PA-C
[2023-10-03 07:55] VITALS: BP 107/67; PULSE 95; RESP 20; TEMP 36.6; O2SAT 95
[2023-10-03] MEDS: oxyCODONE HCl Immed Release 5 MG TABLET 10 MG PO ×2 (08:00→12:37)
[2023-10-03] MEDS: vancomycin HCL 1,500 MG in 0.9 % Sodium Chloride 500 ML 333.33 MG IV (08:00)
[2023-10-03] MEDS: Docusate Sodium 100 MG CAPSULE PO (08:00)
[2023-10-03] MEDS: Nicotine 21 MG PATCH.TD24 TRANSDERMA (08:00)
[2023-10-03] MEDS: 0.9 % Sodium Chloride Flush 3 ML SYRINGE IVFLUSH (08:02)
[2023-10-03] MEDS: Enoxaparin Sodium 30 MG/0.3 ML SYRINGE SUBCUT (09:47)
[2023-10-03 11:30] VITALS: BP 112/66; PULSE 92; RESP 18; TEMP 36.4; O2SAT 92
[2023-10-03 12:33] LABS: MANUAL DIFF FLAG NO
[2023-10-03 12:36] LABS: Basophils Percent Auto 0.1 % (0-2); Hematocrit 37.2 % (42.0-52.0); Hemoglobin 12.4 g/dl (14.0-18.0); Imm Gran Abs Auto 0.08 X10*3/uL (0.00-0.03); Imm Gran Pct Auto 0.6 % (0.0-0.4); Lymphocytes Absolute Auto 1.5 X10*3/uL (1.2-4.9); Lymphocytes Percent Auto 10.8 % (20-40); Mean Corpuscular HGB Conc 33.3 g/dl (31.0-36.0); Mean Corpuscular Hemoglobin 27.4 pg (27.0-33.0); Mean Corpuscular Volume 82.3 fL (80.0-98.0); Mean Platelet Volume 10.3 fL (9.4-12.4); Monocytes Absolute Auto 0.8 X10*3/uL (0.1-1.2); Monocytes Percent Auto 5.6 % (2-11); Neutrophils Absolute Auto 11.7 x10*3/uL (2.0-8.3); Neutrophils Percent Auto 82.9 % (45-73); Platelet Count 212 X10*3/uL (160-400); Red Blood Count 4.52 X10*6/uL (4.60-5.80); Red Cell Distribution Width 15.5 % (11.0-16.0); White Blood Count 14.1 X10*3/uL (4.8-10.8)
--- NOTE | 2023-10-03 13:26 | P.F2F_ITS ---
Service Date Service Date: 10/03/23 Encounter Date of encounter: 10/03/23 Reasons for Services Signs and symptoms assessed: Weakness, poor balance, poor gait mechanics Reason for mcc: administration of IV, SQ, or IM injection and central line care MD Overseeing Care: Davon Lin Homebound: Leaving the home is medically contraindicated at this time without the asist of a device and/or another person due th the listed conditions above and below. 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 Culture positive for Staph Aureus- would favor six weeks IV Daptomycin 6mg/kg end date 11/14/23 Picc Line / iv abx Orders: * Flush PICC line with 10 cc of normal saline 1 times a day * Routine discharge flushing with 10 mL of normal saline after blood specimen withdrawal, medication administration or post transfusion flushing * Weekly CBC w diff and CMP Certification: Based on the above findings, I certify that this patient is confined to the home and needs intermittent mcc care, physical therapy and/or speech therapy, or continues to need occupational therapy. The patient is under my care, and I have initiated the establishment of the plan of care. The patient will be followed by a physician who will periodically review the plan of care. Time Spent With Patient Time: Total time managing care of this patient today ____ minutes.
[2023-10-03] MEDS: DAPTOmycin 600 MG in 0.9 % Sodium Chloride 50 ML 94.7 MG IV (13:49)
--- NOTE | 2023-10-03 14:01 | MHC.CM.PN ---
DP: PT HAS BEEN MEDICALLY CLEARED FOR DC HOME WITH NEW [facility] SERVICES VIA [facility] AND [facility]. [facility] LIA[facility] DID TEACH WITH PT AND HE DID EXCELLENT. [facility] + NOTIFIED OF TODAY'S DC AND WILL DO SOC 10/03. PT WILL BE STAYING AT [address] [place]. [facility] AWARE. RN AWARE. PT WILL NEED [facility] HOME.
--- NOTE | 2023-10-03 15:06 | HO.POSTANES ---
Post Anesthesia Evaluation Post Anesthesia Evaluation Date of Service: 10/03/23 Vital Signs: Vital Signs Temp Pulse Resp BP Pulse Ox O2 Del Method 10/03/23 11:30 97.6 F 92 18 112/66 92 Room Air 10/03/23 07:55 97.9 F 95 20 107/67 95 Room Air Anesthesia: General Mental Status: Awake Pain Control: Satisfactory Nausea/Vomiting: None Hydration: Adequate Anesthesia-Related Issues: No Anes. Related Issues
--- NOTE | 2023-10-03 15:09 | PC.NURSE ---
Per Ortho Anthony Drake and Anthony Sung, Pt to be DC'd home. Pt is to continue home Coumadin dose, in addition to taking Lovenox (which pt has taken in the past and knows how to administer). Per ANTHONY Lovenox prescription was sent to pts listed Pharm. Pt is also instructed to follow up on Friday at his INR clinic. Pt is aware of these DC instructions and verbally understands.
--- NOTE | 2024-02-23 15:12 | P.BOP_ITS ---
Brief Operative Note Date of Service: 10/02/23 Pre-op diagnosis: left clavicle wound breakdown with infection now s/p debridement and wound vac placement Post-op diagnosis: same Procedure: Left shoulder removal of wound vac and irrigation with delayed closure with placement of Proveena vacuum assisted dressing Surgeon: Davon Lin MD Anesthesia: GLMA and local Was an 911 Emergency Dispatcher used for this Procedure?: No Estimated blood loss (mL): 25 IV fluids (mL): 500 Pathology: none sent Condition: stable Disposition: PACU
--- NOTE | 2024-02-23 15:15 | W.PM.OPN ---
Operative Note Operative Note Date of Service: 10/02/23 Narrative: Date of Service: 10/02/23 Pre-op diagnosis: left clavicle wound breakdown with infection now s/p debridement and wound vac placement Post-op diagnosis: same Procedure: Left shoulder removal of wound vac and irrigation with delayed closure with placement of Proveena vacuum assisted dressing Surgeon: Davon Lin MD Anesthesia: GLMA and local Was an Wireless Consultant used for this Procedure?: No Estimated blood loss (mL): 25 IV fluids (mL): 500 Pathology: none sent Condition: stable Disposition: PACU Patient was brought to the operating room and placed supine on the surgical table. He was prepped and draped in standard sterile fashion and a time out was called to identify proper site, proper procedure and IV antibiotics per weight were held. The wound vac was removed and the wound was irrigated copiously with warm saline. I closed an additional 2 cm of the lateral wound with nylon suture and I left a quarter sized defect with healthy granulation tissue at the base. TA proveena wound dressing was aplied and I was satisfied with the extent of debridement and the suction. The patient was then awakened from anesthesia and brought to the recovery room in stable condition. There were no known complications.
== END 2023-10-03 15:09 | disposition home health service (06) | DRG 711 ==
LOC: HO.SSS 10-03 09:21 → HO.S3 10-03 09:21
PROVIDERS: Anesthesiology; Physician Assistant; Admitting Provider Physician Assistant; PCP Nurse Practitioner Family; Visit Provider Orthopaedic Surgery
PROC: 0PD Upper Bones, Extraction (ICD-10-PCS; principal; 2023-09-30 15:00)
DX: T81.41XA Infection following a procedure, superficial incisional surgical site, initial encounter (principal); B95.61 Methicillin susceptible Staphylococcus aureus infection as the cause of diseases classified elsewhere; Z79.01 Long term (current) use of anticoagulants; Z87.891 Personal history of nicotine dependence; Z79.899 Other long term (current) drug therapy
CPT/HCPCS: 36415; 36573; 80202; 82565; 84484; 85025; 85610; 87070; 87077; 87186; 87205; 93005; C1751; J0131; J0690; J0878; J1170; J1650; J2250; J2704; J2795; J3010; J3370; J3371; J7120

== ENCOUNTER 2023-10-07 14:11 | Outpatient (AMB) | payer OTHER, SELFPAY ==
--- NOTE | 2023-10-07 14:14 | A.OFFVIS_ITS ---
Intake Intake Visit Reasons: PO LT Clavicle ORIF 09/30/23 NE Intake Note: Ethan is a 48 year old male who presents today for a wound check s/p left clavicle ORIF 09/30/23 NE. Patient reports having pain and discomfort. Allergies No Known Allergies [No Known Allergies*] Allergy (Verified 10/07/23 14:17) HPI PO LT Clavicle ORIF 09/30/23 NE HPI Details 48-year-old male who presents in the off ice today for a wound check; 1 week status post left clavicle irrigation and debridement with wound vac placement, which was performed on 09/30/[address] Lin. 5 weeks status post left clavicle remova l of hardware, which was performed on 08/27/[address] Lin. While in the office today the patient reports having pain and discomfort. [facility] Medical History Back pain PTSD (post-traumatic stress disorder) Pre-diabetes Migraine Depression Rhabdomyolysis Chest pain Lumbar radiculopathy Pulmonary embolism Polysubstance abuse DVT (deep venous thrombosis) Surgical History History of surgery S/P insertion of IVC (inferior vena caval) filter Hx of appendectomy History of open reduction and internal fixation (ORIF) procedure Hx of meniscectomy of right knee Social History Household Members: Spouse Household Members Other:: MOM-JENN Housing: House Are you a primary home day care provider to a significant other at home: No Do you presently have visiting nurse or other home services: No Alcohol intake: never Patient Tobacco Use Status: Former Tobacco user Quit Date: 1 month Tobacco use type: Cigarette Cigarette Packs Per Day: 0.5 Cigarettes Per Day: 10.0 Years Smoked: 30 Second Hand Smoke Exposure: No Advance Directives Date on File: 10/17/21 service: No Current occupational status: unemployed Review of Systems Const All systems reviewed & are unremarkable except as noted in HPI and below Physical Exam Const General: cooperative, healthy appearing and no acute distress Resp Effort & Inspection: normal respiratory effort and able to speak in complete sentences Cardio Rate: regular rate Peripheral pulses: Peripheral pulses 2+ throughout GI Palpation (GI): Soft to palpation Skin Lesions: no lesions Rashes: no rashes Extrem Other: Left clavicle: Wound is covered with the Prevena vacuum dressing and it is functioning appropriately. No surrounding erythema. The canister has a scant amount of bloody collection. No active signs of infection. Assessment & Plan Assessment & Plan (1) S/P hardware removal: Onset Date: ~08/27/23 Comment: Left clavicle ALISIA 08/27/2023 Dr. Davon Lin Code(s): Z98.890 - Other specified postprocedural states (2) Hematoma: Code(s): T14.8XXA - Other injury of unspecified body region, initial encounter (3) Skin breakdown: Code(s): R23.8 - Other skin changes Plan Mr. Fontenot is a 48-year-old male who presents in the office today for a wound check; 1 week status post left clavicle irrigation and debridement with wound vac placement, which was performed on 09/30/[address] Lin. 5 weeks status post left clavicle removal of hardware, which was performed on 08/27/[address] Lin. While in the office today the patient reports having pain and discomfort. I discussed the case with Dr. Lin who was available, but not able to see the patient while in the office today due to being in the operating room, and a collaborative treatment plan was made. The patient will keep the Prevena dressing on until Friday (10/13/2023) when he will follow up with Dr. Lin for a wound check. I did instruct the patient that should he have any concerns or issues with the Prevena device he should contact the office. Follow up will be on Friday10/13/[address] Lin, or sooner if needed. Current pain regiment: --Acetaminophen 650 mg PO Q6H PRN (10/03/2023) --Oxycodone 10 mg PO Q4H PRN (10/03/2023) Patient Instructions: Scribed by Dilma Solano medical staff credentialing coordinator, for Yuli Sung PA-C on 10/07/2023 at 2:12 pm, EST. Coding Level of Care Code Global (01227) Diagnoses S/P hardware removal Z98.890 Hematoma T14.8XXA Skin breakdown R23.8
== END 2023-10-07 14:47 | disposition home or self-care (01) ==
PROVIDERS: PCP Orthopaedic Surgery; Visit Provider Physician Assistant
DX: Z98.890 Other specified postprocedural states (principal); T14.8XXA Other injury of unspecified body region, initial encounter; R23.8 Other skin changes
CPT/HCPCS: 99024

== ENCOUNTER → 2023-10-07 14:11 | Outpatient (BNVA) | payer OTHER, SELFPAY | PROVIDERS: PCP Orthopaedic Surgery; Visit Provider Physician Assistant | DX: Z48.1 Encounter for planned postprocedural wound closure (principal); Z98.890 Other specified postprocedural states | CPT/HCPCS: 99212 ==

== ENCOUNTER 2023-10-13 14:20 | Outpatient (AMB) | payer OTHER, SELFPAY ==
--- NOTE | 2023-10-24 09:52 | MHC.OFFVIS ---
Intake Intake Visit Reasons: PO - left clavicle ORIF 09/30/23 NE Allergies No Known Allergies [No Known Allergies*] Allergy (Verified 10/07/23 14:17) [facility] Medical History Back pain PTSD (post-traumatic stress disorder) Pre-diabetes Migraine Depression Rhabdomyolysis Chest pain Lumbar radiculopathy Pulmonary embolism Polysubstance abuse DVT (deep venous thrombosis) Surgical History History of surgery S/P insertion of IVC (inferior vena caval) filter Hx of appendectomy History of open reduction and internal fixation (ORIF) procedure Hx of meniscectomy of right knee Social History Household Members: Spouse Household Members Other:: ALESHA-JENN Housing: House Are you a primary care aid to a significant other at home: No Do you presently have visiting nurse or other home services: No Alcohol intake: never Patient Tobacco Use Status: Former Tobacco user Quit Date: 1 month Tobacco use type: Cigarette Cigarette Packs Per Day: 0.5 Cigarettes Per Day: 10.0 Years Smoked: 30 Second Hand Smoke Exposure: No Advance Directives Date on File: 10/17/21 service: No Current occupational status: unemployed Physical Exam Extrem Other: open wound wiht good evidence or early healing Assessment & Plan Assessment & Plan (1) Skin breakdown: Code(s): R23.8 - Other skin changes Plan: Removed sutures and Proveena and WTD Coding Level of Care Code Global (95526) Diagnoses Skin breakdown R23.8
== END 2023-10-13 14:48 | disposition home or self-care (01) ==
PROVIDERS: PCP Orthopaedic Surgery; Visit Provider Orthopaedic Surgery
DX: R23.8 Other skin changes (principal)
CPT/HCPCS: 99024

== ENCOUNTER → 2023-10-13 14:20 | Outpatient (BNVA) | payer OTHER, SELFPAY | PROVIDERS: PCP Orthopaedic Surgery; Visit Provider Orthopaedic Surgery | DX: Z47.89 Encounter for other orthopedic aftercare (principal); R23.8 Other skin changes; Z98.890 Other specified postprocedural states | CPT/HCPCS: 99212 ==

== ENCOUNTER 2023-10-23 12:14 | Outpatient (AMB) | payer OTHER, SELFPAY ==
--- NOTE | 2023-10-23 12:17 | MHC.OFFVIS ---
Intake Intake Visit Reasons: PO - left clavicle ORIF 09/30/23 NE Intake Note: Ethan is a 48 year old male who presents today for a wound check s/p left clavicle I&D w/ Wound Vac Placement 09/30/23 NE. At his last visit on 10/13/23 his wound vac was removed, sutures removed and wet to dry dressing applied and instructed to continue these changes at home. Allergies No Known Allergies [No Known Allergies*] Allergy (Verified 10/07/23 14:17) HPI PO - left clavicle ORIF 09/30/23 NE HPI Details Ethan is a 48 year old male who presents today for a wound check s/p left clavicle I&D w/ Wound Vac Placement 09/30/23 NE. At his last visit on 10/13/23 his wound vac was removed, sutures removed and wet to dry dressing applied and instructed to continue these changes at home. ON LICENSE OF [facility] Medical History Back pain PTSD (post-traumatic stress disorder) Pre-diabetes Migraine Depression Rhabdomyolysis Chest pain Lumbar radiculopathy Pulmonary embolism Polysubstance abuse DVT (deep venous thrombosis) Surgical History History of surgery S/P insertion of IVC (inferior vena caval) filter Hx of appendectomy History of open reduction and internal fixation (ORIF) procedure Hx of meniscectomy of right knee Social History Household Members: Spouse Household Members Other:: MOM-JENN Housing: House Are you a primary manager urgent care to a significant other at home: No Do you presently have visiting nurse or other home services: No Alcohol intake: never Patient Tobacco Use Status: Former Tobacco user Quit Date: 1 month Tobacco use type: Cigarette Cigarette Packs Per Day: 0.5 Cigarettes Per Day: 10.0 Years Smoked: 30 Second Hand Smoke Exposure: No Advance Directives Date on File: 10/17/21 service: No Current occupational status: unemployed Physical Exam Extrem Other: Healing left clavicle wound with healthy granulation tissue. Some bridging skin with undermining but no exposed bone. Assessment & Plan Assessment & Plan (1) Skin breakdown: Code(s): R23.8 - Other skin changes Plan: Healing wound Continue WTD F/u one week Coding Level of Care Code Global (71504) Diagnoses Skin breakdown R23.8
== END 2023-10-23 13:10 | disposition home or self-care (01) ==
PROVIDERS: PCP Orthopaedic Surgery; Visit Provider Orthopaedic Surgery
DX: R23.8 Other skin changes (principal)
CPT/HCPCS: 99024

== ENCOUNTER → 2023-10-23 12:14 | Outpatient (BNVA) | payer OTHER, SELFPAY | PROVIDERS: PCP Orthopaedic Surgery; Visit Provider Orthopaedic Surgery | DX: Z48.817 Encounter for surgical aftercare following surgery on the skin and subcutaneous tissue (principal); R23.8 Other skin changes; Z98.890 Other specified postprocedural states | CPT/HCPCS: 99212 ==

== ENCOUNTER 2023-10-30 12:31 | Outpatient (AMB) | payer OTHER, SELFPAY ==
--- NOTE | 2023-10-30 12:42 | MHC.OFFVIS ---
Intake Intake Visit Reasons: PO - left clavicle ORIF 09/30/23 NE Intake Note: Ethan is a 48 year old male who presents today for a wound check s/p left clavicle I&D w/ Wound Vac Placement 09/30/23 NE. At his last visit he was instructed to continue wet to dry dressings. Allergies No Known Allergies [No Known Allergies*] Allergy (Verified 10/07/23 14:17) HPI PO - left clavicle ORIF 09/30/23 NE HPI Details Here for wound check Continues on IV abx Performing daily dressing changes on his own [facility] Medical History Back pain PTSD (post-traumatic stress disorder) Pre-diabetes Migraine Depression Rhabdomyolysis Chest pain Lumbar radiculopathy Pulmonary embolism Polysubstance abuse DVT (deep venous thrombosis) Surgical History History of surgery S/P insertion of IVC (inferior vena caval) filter Hx of appendectomy History of open reduction and internal fixation (ORIF) procedure Hx of meniscectomy of right knee Social History Household Members: Spouse Household Members Other:: MOM-JENN Housing: House Are you a primary doggy daycare activities director to a significant other at home: No Do you presently have visiting nurse or other home services: No Alcohol intake: never Patient Tobacco Use Status: Former Tobacco user Quit Date: 1 month Tobacco use type: Cigarette Cigarette Packs Per Day: 0.5 Cigarettes Per Day: 10.0 Years Smoked: 30 Second Hand Smoke Exposure: No Advance Directives Date on File: 10/17/21 service: No Current occupational status: unemployed Physical Exam Extrem Other: No depth to wound Improving granulation tissue 2-3 mm x 1mm Assessment & Plan Assessment & Plan (1) S/P hardware removal: Onset Date: ~08/27/23 Comment: Left clavicle ALISIA 08/27/2023 Dr. Davon Lin Code(s): Z98.890 - Other specified postprocedural states Plan: Improving with healing wound and no discharge or e/o infection (2) Skin breakdown: Code(s): R23.8 - Other skin changes Plan: continue WTD for 48 hours then dry dressing change. f/u one week for wound check. IV abx for ~2 more weeks Coding Level of Care Code Global (30711) Diagnoses S/P hardware removal Z98.890 Skin breakdown R23.8
== END 2023-10-30 12:56 | disposition home or self-care (01) ==
PROVIDERS: PCP Orthopaedic Surgery; Visit Provider Orthopaedic Surgery
DX: Z98.890 Other specified postprocedural states (principal); R23.8 Other skin changes
CPT/HCPCS: 99024

== ENCOUNTER → 2023-10-30 12:31 | Outpatient (BNVA) | payer OTHER, SELFPAY | PROVIDERS: PCP Orthopaedic Surgery; Visit Provider Orthopaedic Surgery | DX: R23.8 Other skin changes (principal); Z98.890 Other specified postprocedural states | CPT/HCPCS: 99212 ==

== ENCOUNTER 2023-11-06 12:13 | Outpatient (AMB) | payer OTHER, SELFPAY ==
--- NOTE | 2023-11-06 12:32 | MHC.OFFVIS ---
Intake Intake Visit Reasons: PO - left clavicle ORIF 09/30/23 NE Intake Note: Ethan is a 48 year old male who presents today for a wound check s/p left clavicle I&D w/ Wound Vac Placement 09/30/23 NE. At his last visit her was instructed to continue wet to dry dressing for 2 days and then transition to dry dressings only. Patient reports that he continues to do dry dressing changes, however he presents with the wound undressed as he was running late for his appointment. Allergies No Known Allergies [No Known Allergies*] Allergy (Verified 10/07/23 14:17) HPI PO - left clavicle ORIF 09/30/23 NE HPI Details Ethan is a 48 year old male who presents today for a wound check s/p left clavicle I&D w/ Wound Vac Placement 09/30/23 NE. At his last visit her was instructed to continue wet to dry dressing for 2 days and then transition to dry dressings only. [facility] Medical History Back pain PTSD (post-traumatic stress disorder) Pre-diabetes Migraine Depression Rhabdomyolysis Chest pain Lumbar radiculopathy Pulmonary embolism Polysubstance abuse DVT (deep venous thrombosis) Surgical History History of surgery S/P insertion of IVC (inferior vena caval) filter Hx of appendectomy History of open reduction and internal fixation (ORIF) procedure Hx of meniscectomy of right knee Social History Household Members: Spouse Household Members Other:: MOM-JENN Housing: House Are you a primary day care home provider to a significant other at home: No Do you presently have visiting nurse or other home services: No Alcohol intake: never Patient Tobacco Use Status: Former Tobacco user Quit Date: 1 month Tobacco use type: Cigarette Cigarette Packs Per Day: 0.5 Cigarettes Per Day: 10.0 Years Smoked: 30 Second Hand Smoke Exposure: No Advance Directives Date on File: 10/17/21 service: No Current occupational status: unemployed Physical Exam Extrem Other: Incision clean dry and intact Assessment & Plan Assessment & Plan (1) Skin breakdown: Code(s): R23.8 - Other skin changes Plan: Healing. PICC line came out but he has a closed wound and I wrote a prescription for 2 weeks of p.o. antibiotics. We will see him back in 3 weeks. (2) S/P hardware removal: Onset Date: ~08/27/23 Comment: Left clavicle ALISIA 08/27/2023 Dr. Davon Lin Code(s): Z98.890 - Other specified postprocedural states Plan: Healing Medications: New doxycycline hyclate 100 mg PO BID 14 days 28 caps 0RF Coding Level of Care Code Global (68852) Diagnoses Skin breakdown R23.8 S/P hardware removal Z98.890
== END 2023-11-06 12:45 | disposition home or self-care (01) ==
PROVIDERS: PCP Orthopaedic Surgery; Visit Provider Orthopaedic Surgery
DX: R23.8 Other skin changes (principal); Z98.890 Other specified postprocedural states
CPT/HCPCS: 99024

== ENCOUNTER → 2023-11-06 12:13 | Outpatient (BNVA) | payer OTHER, SELFPAY | PROVIDERS: PCP Orthopaedic Surgery; Visit Provider Orthopaedic Surgery | DX: R23.8 Other skin changes (principal); Z95.828 Presence of other vascular implants and grafts; Z45.2 Encounter for adjustment and management of vascular access device | CPT/HCPCS: 99212 ==